=== PATIENT | male | born 1980 | race African-American/Black ===

== ENCOUNTER 2016-08-25 15:05 | Emergency (ER) | payer MEDICARE, MEDICAID ==
[2016-08-25 16:09] VITALS: BP 137/83
[2016-08-25 17:22] LABS: Hematocrit 44 % (42-52); Hemoglobin 14.8 g/dl (14.0-18.0); Mean Corpuscular HGB Conc 34 g/dl (31-36); Mean Corpuscular Hemoglobin 30 pg (27-31); Mean Corpuscular Volume 88 fL (80-94); Mean Platelet Volume 9 um3 (7.4-10.4); Red Blood Count 4.98 10^6/ul (4.0-5.4); Red Cell Distribution Width 13 % (10.5-15); White Blood Count 12.2 10^3/ul (3.5-10.8)
[2016-08-25 17:39] LABS: Albumin 4.2 g/dL (3.2-5.2); Anion Gap 8 mmol/L (2-11); Blood Urea Nitrogen 7 mg/dL (6-24); CO2 Carbon Dioxide 25 mmol/L (22-32); Calcium 9.4 mg/dL (8.6-10.3); Chloride 106 mmol/L (101-111); EGFR African American 163.2 (>60); EGFR Non-African American 126.9 (>60); Globulin 2.3 g/dL (2-4); Glucose 136 mg/dL (70-100); Potassium 3.6 mmol/L (3.5-5.0); Sodium 139 mmol/L (133-145); Total Protein 6.5 g/dL (6.4-8.9)
[2016-08-25 17:40] LABS: ALT 21 U/L (7-52); AST 13 U/L (13-39); Alkaline Phosphatase 42 U/L (34-104)
[2016-08-25 18:07] LABS: Acetaminophen < 15 mcg/mL; Alcohol < 10 mg/dL (<10); Salicylate < 2.50 mg/dL (<30)
[2016-08-25 18:16] LABS: TSH (Thyroid Stimulating Horm) 1.02 mcIU/mL (0.34-5.60)
--- NOTE | 2016-08-25 23:21 | ED ---
Bacilio Garcia Erika, scribed for Don Rojas MD on 08/25/16 at 1530 . Psychiatric Complaint - HPI Summary HPI Summary: Patient is a 35-year-old male presenting to the ED with a CC of constant and gradually worsening schizophrenia. Pt reports that he has not been sleeping well , and states he is not on enough medication. Pt reports he takes depakote. Hx schizophrenia. - History Of Current Complaint Time Seen by Provider: 08/25/16 15:24 Accompanied By: Alone Hx Obtained From: Patient Onset/Duration: Gradual Onset, Worse Since Timing: Constant Severity Initially: Mild Severity Currently: Moderate Aggravating Factor(s): Other - lack of sleep Alleviating Factor(s): Nothing Associated Signs And Symptoms: Positive: Sleep Disturbance Related History: Positive For: Prior Psychiatric Issues Has Suicidal: Denies: Thoughts - Allergies/Home Medications Allergies/Adverse Reactions: Allergies Allergy/AdvReac Type Severity Reaction Status Date / Time No Known Allergies Allergy Verified 04/15/16 17:25 PMH/Surg Hx/FS Hx/Imm Hx Endocrine/Hematology History: Reports: Hx Diabetes, Hx Thyroid Disease Sensory History: Reports: Hx Contacts or Glasses Opthamlomology History: Reports: Hx Contacts or Glasses Psychiatric History: Reports: Hx Inpatient Treatment, Hx Community Mental Health Tx, Hx Schizophrenia, Hx Bipolar Disorder, Hx of Violent Episodes Against Others Denies: Hx Eating Disorder - Surgical History Surgery Procedure, Year, and Place: patient reports history of gall bladder surgery and a corneal transplant - Immunization History Date of Tetanus Vaccine: unknown Date of Influenza Vaccine: unknown - Family History Known Family History: Positive: Hypertension, Diabetes, Other - father-- schizophrenia. Brothers--mood disorder. Mother-- depression - Social History Alcohol Use: None Hx Substance Use: No Substance Use Type: Reports: None Hx Tobacco Use: Yes Smoking Status (MU): Current Every Day Smoker Amount Used/How Often: 7-9 cigarettes a day Length of Time of Smoking/Using Tobacco: can't recall Have You Smoked in the Last Year: Yes - Pt states he smoke last yesterday Review of Systems Negative: Fever Psychological: Other - worsening sx of schizophrenia, sleep disturbance All Other Systems Reviewed And Are Negative: Yes Physical Exam Triage Information Reviewed: Yes Vital Signs On Initial Exam: Temp Pulse Resp BP Pulse Ox 98.0 F 92 16 137/83 97 08/25/16 16:03 08/25/16 16:03 08/25/16 16:03 08/25/16 16:03 08/25/16 16:03 Vital Signs Reviewed: Yes Appearance: Positive: Well-Appearing, No Pain Distress Skin: Positive: Warm, Skin Color Reflects Adequate Perfusion, Dry Head/Face: Positive: Normal Head/Face Inspection Eyes: Positive: EOMI, ARETHA ENT: Positive: Normal ENT inspection Neck: Positive: Supple, Nontender Respiratory/Lung Sounds: Positive: Clear to Auscultation, Breath Sounds Present Cardiovascular: Positive: RRR Abdomen Description: Positive: Nontender, Soft Bowel Sounds: Positive: Present Musculoskeletal: Positive: Normal, Strength/ROM Intact Neurological: Positive: Normal, Sensory/Motor Intact, Alert, Oriented to Person Place, Time Psychiatric: Positive: Affect/Mood Appropriate Diagnostics - Vital Signs Vital Signs Temp Pulse Resp BP Pulse Ox 08/25/16 16:03 98.0 F 92 16 137/83 97 - Laboratory Lab Results: Lab Results 08/25/16 08/25/16 Range/Units 17:10 17:10 WBC 12.2 H (3.5-10.8) 10^3/ul RBC 4.98 (4.0-5.4) 10^6/ul Hgb 14.8 (14.0-18.0) g/dl Hct 44 (42-52) % MCV 88 (80-94) fL MCH 30 (27-31) pg MCHC 34 (31-36) g/dl RDW 13 (10.5-15) % Plt Count 212 (150-450) 10^3/ul MPV 9 (7.4-10.4) um3 Neut % (Auto) 67.3 (38-83) % Lymph % (Auto) 24.1 L (25-47) % Worth % (Auto) 6.4 (1-9) % Eos % (Auto) 1.6 (0-6) % Baso % (Auto) 0.6 (0-2) % Absolute Neuts (auto) 8.2 H (1.5-7.7) 10^3/ul Absolute Lymphs (auto) 2.9 (1.0-4.8) 10^3/ul Absolute Monos (auto) 0.8 (0-0.8) 10^3/ul Absolute Eos (auto) 0.2 (0-0.6) 10^3/ul Absolute Basos (auto) 0.1 (0-0.2) 10^3/ul Absolute Nucleated RBC 0.01 10^3/ul Nucleated RBC % 0.1 Sodium 139 (133-145) mmol/L Potassium 3.6 (3.5-5.0) mmol/L Chloride 106 (101-111) mmol/L Carbon Dioxide 25 (22-32) mmol/L Anion Gap 8 (2-11) mmol/L BUN 7 (6-24) mg/dL Creatinine 0.70 (0.67-1.17) mg/dL Est GFR ( Amer) 163.2 (>60) Est GFR (Non-Af Amer) 126.9 (>60) BUN/Creatinine Ratio 10.0 (8-20) Glucose 136 H (70-100) mg/dL Calcium 9.4 (8.6-10.3) mg/dL Total Bilirubin 0.50 (0.2-1.0) mg/dL AST 13 (13-39) U/L ALT 21 (7-52) U/L Alkaline Phosphatase 42 (34-104) U/L Total Protein 6.5 (6.4-8.9) g/dL Albumin 4.2 (3.2-5.2) g/dL Globulin 2.3 (2-4) g/dL Albumin/Globulin Ratio 1.8 (1-3) TSH 1.02 (0.34-5.60) mcIU/mL Salicylates < 2.50 (<30) mg/dL Acetaminophen < 15 mcg/mL Valproic Acid 84.0 (50-100) mcg/mL Serum Alcohol < 10 (<10) mg/dL Result Diagrams: 08/25/16 17:10 08/25/16 17:10 Lab Statement: Any lab studies that have been ordered have been reviewed, and results considered in the medical decision making process. Course/Dx - Course Course Of Treatment: Pt is medically cleared for MHU Evaluation at 18:00 Assessment/Plan: MHE PENDING AT SHIFT CHANGE, STABLE. - Differential Dx/Clinical Impression Provider Diagnosis: Mental health problem Discharge - Discharge Plan Condition: Stable Disposition[place]ATR[place] [place] Comment: Signed out pending MHU evaluation Referrals: No Primary Care Phys,NOPCP [Primary Care Provider] - The documentation as recorded by the Bacilio jean Erika accurately reflects the service I personally performed and the decisions made by me, Don Rojas MD.
[2016-08-26] MEDS ORDERED: OLANzapine TAB* 10 MG PO ONE (02:17)
[2016-08-26] MEDS ORDERED: OLANzapine TAB* 10 MG ONE (02:26)
--- NOTE | 2016-08-26 06:53 | PN ---
Progress Note - Progress Note Note: PT STABLE AND AWAITING FOR SW CONSULT.
[2016-08-26] MEDS ORDERED: Levothyroxine TAB* 75 MCG TAB PO SCH (09:00)
[2016-08-26] MEDS ORDERED: OLANzapine TAB* 10 MG PO SCH (09:00)
[2016-08-26] MEDS ORDERED: Citalopram TAB* 40 MG PO SCH (09:00)
[2016-08-26] MEDS ORDERED: metFORMIN* 1,000 MG TAB PO SCH (09:00)
--- NOTE | 2016-08-26 09:27 | PN ---
Progress Note - Progress Note Note: PSYCHIATRY UPDATE - Read in connection with Mental Health Evaluations 1-3 and other notes (ED education professional updates). Interview: Luis expressed sadness at the general circumstances of his life: feels alone and disliked. He expressed frustration that he "will never get the care (he needs)." He reports good subjective connection with the clinic, adherence with his medicines. Said he is only low on Zyprexa at home and was not sure if he had a current Rx. at the pharmacy. He expressed a relative preference for going home vs. waiting for a psychiatric bed, which we offered to try to obtain for him. I discussed case by phone with Dr. Ling at [facility]. He said he last saw pt. a couple of month ago and that Luis missed a visit last week (but apparently expecting to miss, called ahead and asked for Zyprexa Rx - which was ordered). So it seems Luis values his medicine regimen. His clinic status is consistent with baseline. Dr. Ling did not have up to date info on patient's status but did not have concerns that would make discharge inappropriate. Impression: Luis is a 35-year-old male with chronic psychotic condition, periodic threatening and disruptive behavior and reported history of suicide attempt. He presented typically again with increased paranoid ideation, elevated distress , and some level of suicidal ideation in that context. It is in the setting of spotty adherence with clinic visits but apparent adherence with outpatient medications (Valproate level 84). He has maintained behavioral control here. Is sullen, but at overtly low distress levels. He is not making spontaneous delusional comments and affirms, consistently, that he does not have the intention to (or perceived capability of ) acting in a way that harms himself or others. He is psychiatrically clear for release if he opts for it. Clinic care will continue at [facility]. He has supplies of medicine regimen (and/or Rx at pharmacy). Today's risk concern centered on suicidal ideation with some level of impairment due to paranoid ideation. Luis is at chronically elevated risk due to his condition and history. Acute risk is acceptable for discharge because he has not have active planning, appears at / near baseline in impairment, and distress levels are reduced. Violence risk is chronic and elevated, and assessed at baseline at this time.
[2016-08-26] MEDS ORDERED: Divalproex DR TAB(*) 500 MG PO SCH (21:00)
== END 2016-08-26 12:00 | disposition home or self-care (01) ==
LOC: ED 15:05
DX: R45.851 Suicidal ideations (principal); G47.9 Sleep disorder, unspecified; Z86.59 Personal history of other mental and behavioral disorders; F17.210 Nicotine dependence, cigarettes, uncomplicated; Z00.8 Encounter for other general examination
CPT/HCPCS: 36415; 80053; 80164; 80320; 80329; 84443; 85025; 99285; A9270-GY; G0480

== ENCOUNTER 2016-10-19 03:01 | Emergency (ER) | payer MEDICARE, MEDICAID ==
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
== END 2016-10-19 03:41 ==
LOC: ED 03:01
DX: F31.9 Bipolar disorder, unspecified (principal); F63.9 Impulse disorder, unspecified; E11.9 Type 2 diabetes mellitus without complications; F20.9 Schizophrenia, unspecified; F17.210 Nicotine dependence, cigarettes, uncomplicated
CPT/HCPCS: 99283

== ENCOUNTER 2016-10-19 06:45 | Emergency (ER) | payer MEDICARE, MEDICAID ==
[2016-10-19] MEDS ORDERED: Valproic Acid CAP(*) 250 MG PO ONE ×2 (07:43→23:00)
[2016-10-19] MEDS ORDERED: metFORMIN* 500 MG TAB PO ONE ×2 (07:43→23:00)
[2016-10-19] MEDS ORDERED: OLANzapine TAB* 10 MG PO SCH ×2 (08:00→08:03)
[2016-10-19] MEDS: Citalopram TAB* 40 MG PO SCH ×2 (08:22→08:23)
[2016-10-19 15:56] VITALS: BP 134/87
--- NOTE | 2016-10-19 17:46 | ED ---
Daphne Garcia Michael, scribed for Benji Saavedra MD on 10/19/16 at 0724 . Psychiatric Complaint - HPI Summary HPI Summary: 35 y/o male was brought to the ED by [facility] as a 941 after he was already seen in the ED this morning for suicidal thoughts. The pt returns to the ED stating that he wants to be discharged and has an angry affect. He does not believe his life will get any better. The pt agrees to have an MHE. The PMHx is significant for schizophrenia, depression, and anxiety. - History Of Current Complaint Chief Complaint: EDMentalHealth Time Seen by Provider: 10/19/16 07:12 Hx Obtained From: Patient, Medical Records Onset/Duration: Gradual Onset, Lasting Hours Timing: Constant Severity Initially: Moderate Severity Currently: Mild Character: Angry Aggravating Factor(s): Nothing Alleviating Factor(s): Nothing Associated Signs And Symptoms: Positive: Hostile Related History: Positive For: Prior Psychiatric Issues - Allergies/Home Medications Allergies/Adverse Reactions: Allergies Allergy/AdvReac Type Severity Reaction Status Date / Time No Known Allergies Allergy Verified 08/26/16 01:58 Home Medications: Home Medications metFORMIN* [Glucophage 1000 MG TAB *] 1,000 mg PO DAILY 10/19/16 [History Confirmed 10/19/16] PMH/Surg Hx/FS Hx/Imm Hx Endocrine/Hematology History: Reports: Hx Diabetes, Hx Thyroid Disease Sensory History: Reports: Hx Contacts or Glasses Opthamlomology History: Reports: Hx Contacts or Glasses Psychiatric History: Reports: Hx Inpatient Treatment, Hx Community Mental Health Tx, Hx Schizophrenia, Hx Bipolar Disorder, Hx of Violent Episodes Against Others Denies: Hx Eating Disorder - Surgical History Surgery Procedure, Year, and Place: patient reports history of gall bladder surgery and a corneal transplant - Immunization History Date of Tetanus Vaccine: unknown Date of Influenza Vaccine: unknown Infectious Disease History: No Infectious Disease History: Denies: Traveled Outside the [place] in Last 30 Days - Family History Known Family History: Positive: Hypertension, Diabetes, Other - father-- schizophrenia. Brothers--mood disorder. Mother-- depression - Social History Occupation: Disabled Lives: Alone Alcohol Use: None Hx Substance Use: No Substance Use Type: Reports: None Hx Tobacco Use: Yes Smoking Status (MU): Current Every Day Smoker Amount Used/How Often: 7-9 cigarettes a day Length of Time of Smoking/Using Tobacco: can't recall Have You Smoked in the Last Year: Yes - Pt states he smoke last yesterday Review of Systems Negative: Fever Positive: Other - hostile All Other Systems Reviewed And Are Negative: Yes Physical Exam Triage Information Reviewed: Yes Vital Signs On Initial Exam: Initial Vitals Temp Pulse Resp BP Pulse Ox 98.9 F 101 20 122/98 96 10/19/16 06:52 10/19/16 06:52 10/19/16 06:52 10/19/16 06:52 10/19/16 06:52 Vital Signs Reviewed: Yes Appearance: Positive: Well-Appearing, No Pain Distress, Well-Nourished Skin: Positive: Warm, Skin Color Reflects Adequate Perfusion, Dry Head/Face: Positive: Normal Head/Face Inspection Eyes: Positive: Normal ENT: Positive: Normal ENT inspection Neck: Positive: Supple, Nontender Respiratory/Lung Sounds: Positive: Clear to Auscultation, Breath Sounds Present Cardiovascular: Positive: Tachycardia Abdomen Description: Positive: Nontender, Soft Bowel Sounds: Positive: Present Musculoskeletal: Positive: Normal Neurological: Positive: Normal Psychiatric: Positive: Affect/Mood Appropriate Diagnostics - Vital Signs Vital Signs Temp Pulse Resp BP Pulse Ox 10/19/16 06:52 98.9 F 101 20 122/98 96 - Laboratory Lab Statement: Any lab studies that have been ordered have been reviewed, and results considered in the medical decision making process. Course/Dx - Course Course Of Treatment: Luis presented to the ED angry and frustrated that his life would not get any better. He was medically cleared and evaulated by the mental health team and they are attempting to transfer him at this time. - Differential Dx/Clinical Impression Provider Diagnosis: Chronic psychosis Discharge - Discharge Plan Condition: Stable Disposition: TRANS HIGHER L OF CARE FAC The documentation as recorded by the Daphne jean Michael accurately reflects the service I personally performed and the decisions made by me, Benji Saavedra MD.
[2016-10-19] MEDS ORDERED: Haloperidol TAB* 5 MG PO ONE (17:49)
[2016-10-19] MEDS ORDERED: Haloperidol INJ IV/IM* 5 MG/ML AMP IM ONE (17:49)
[2016-10-19] MEDS ORDERED: LORazepam TAB(*) 1 MG PO ONE (17:49)
[2016-10-19] MEDS ORDERED: LORazepam INJ* 2 MG/ML 1 ML VIAL IM ONE (17:49)
[2016-10-19] MEDS ORDERED: diPHENhydraMINE PO* 50 MG PO ONE (17:49)
[2016-10-19] MEDS ORDERED: diPHENhydraMINE IV* 50 MG/ML 1 ml VIAL (BENADRYL) IM ONE (17:49)
[2016-10-19 17:57] LABS: Hematocrit 42 % (42-52); Mean Corpuscular HGB Conc 34 g/dl (31-36); Mean Corpuscular Hemoglobin 30 pg (27-31); Mean Corpuscular Volume 90 fL (80-94); Mean Platelet Volume 9 um3 (7.4-10.4); Red Blood Count 4.65 10^6/ul (4.0-5.4); Red Cell Distribution Width 13 % (10.5-15); White Blood Count 8.4 10^3/ul (3.5-10.8)
[2016-10-19 18:00] LABS: ALT 22 U/L (7-52); AST 24 U/L (13-39); Alkaline Phosphatase 48 U/L (34-104); Anion Gap 9 mmol/L (2-11); BUN/Creatinine Ratio 15.8 (8-20); Blood Urea Nitrogen 9 mg/dL (6-24); CO2 Carbon Dioxide 27 mmol/L (22-32); Calcium 9.4 mg/dL (8.6-10.3); Chloride 104 mmol/L (101-111); EGFR African American 206.9 (>60); EGFR Non-African American 160.8 (>60); Globulin 2.5 g/dL (2-4); Glucose 83 mg/dL (70-100); Sodium 140 mmol/L (133-145); Total Protein 6.5 g/dL (6.4-8.9)
[2016-10-19 18:03] LABS: Acetaminophen < 15 mcg/mL; Alcohol < 10 mg/dL (<10); Salicylate < 2.50 mg/dL (<30)
[2016-10-19 18:12] LABS: TSH (Thyroid Stimulating Horm) 1.95 mcIU/mL (0.34-5.60)
[2016-10-19] MEDS ORDERED: Citalopram TAB* 40 MG PO SCH (23:00)
[2016-10-19] MEDS ORDERED: OLANzapine TAB* 10 MG PO ONE (23:00)
[2016-10-20] MEDS ORDERED: Levothyroxine TAB* 75 MCG TAB PO SCH ×2 (06:00→23:00)
== END 2016-10-19 23:54 | disposition short-term general hospital (02) ==
LOC: ED 06:45
DX: F29 Unspecified psychosis not due to a substance or known physiological condition (principal); E11.9 Type 2 diabetes mellitus without complications; F20.9 Schizophrenia, unspecified; F31.9 Bipolar disorder, unspecified; F17.210 Nicotine dependence, cigarettes, uncomplicated
CPT/HCPCS: 36415; 80053; 80320; 80329; 84443; 85025; 96372; 99285; A9270-GY; G0480

== ENCOUNTER 2016-12-12 08:44 | Inpatient (IN) | payer MEDICARE, MEDICAID ==
[2016-12-12 09:33] LABS: Hematocrit 47 % (42-52); Mean Corpuscular HGB Conc 34 g/dl (31-36); Mean Corpuscular Hemoglobin 30 pg (27-31); Mean Corpuscular Volume 88 fL (80-94); Mean Platelet Volume 8 um3 (7.4-10.4); Red Blood Count 5.36 10^6/ul (4.0-5.4); Red Cell Distribution Width 13 % (10.5-15); White Blood Count 15.8 10^3/ul (3.5-10.8)
[2016-12-12 09:41] LABS: Add Diff/Slide Review? Slide Review Added; Comments Flag Yes
[2016-12-12 09:44] LABS: ALT 32 U/L (7-52); AST 23 U/L (13-39); Albumin 4.8 g/dL (3.2-5.2); Alkaline Phosphatase 61 U/L (34-104); Anion Gap 12 mmol/L (2-11); BUN/Creatinine Ratio 15.9 (8-20); Blood Urea Nitrogen 10 mg/dL (6-24); CO2 Carbon Dioxide 20 mmol/L (22-32); Calcium 10.1 mg/dL (8.6-10.3); Chloride 105 mmol/L (101-111); EGFR African American 183.3 (>60); EGFR Non-African American 142.5 (>60); Glucose 163 mg/dL (70-100); Potassium 3.6 mmol/L (3.5-5.0); Sodium 137 mmol/L (133-145); Total Protein 7.8 g/dL (6.4-8.9)
[2016-12-12 10:27] LABS: Acetaminophen < 15 mcg/mL; Alcohol < 10 mg/dL (<10); Salicylate < 2.50 mg/dL (<30); Valproic Acid < 13.0 mcg/mL (50-100)
[2016-12-12 10:37] LABS: TSH (Thyroid Stimulating Horm) 4.93 mcIU/mL (0.34-5.60)
[2016-12-12] MEDS ORDERED: LORazepam INJ* 2 MG/ML 1 ML VIAL ONE (16:55)
[2016-12-12] MEDS ORDERED: LORazepam TAB(*) 1 MG ONE (16:55)
[2016-12-12] MEDS ORDERED: chlorproMAZINE TAB* 50 MG ONE (16:56)
[2016-12-12] MEDS ORDERED: Haloperidol INJ IV/IM* 5 MG/ML AMP ONE (16:56)
[2016-12-12] MEDS ORDERED: diPHENhydraMINE IV* 50 MG/ML 1 ml VIAL (BENADRYL) ONE (16:56)
[2016-12-12] MEDS ORDERED: diPHENhydraMINE PO* 50 MG ONE (16:56)
[2016-12-12] MEDS ORDERED: LORazepam INJ* 2 MG/ML 1 ML VIAL IM ONE (17:00)
[2016-12-12] MEDS ORDERED: diPHENhydraMINE IV* 50 MG/ML 1 ml VIAL (BENADRYL) IM ONE (17:00)
[2016-12-12] MEDS ORDERED: Haloperidol INJ IV/IM* 5 MG/ML AMP IM ONE (17:00)
[2016-12-12] MEDS ORDERED: Al Hydrox/Mg Hydrox/Simet LIQ* 30 ML UDC PO PRN (22:29)
[2016-12-12] MEDS ORDERED: Acetaminophen TAB* 325 MG PO PRN (22:29)
[2016-12-13] MEDS: LORazepam TAB(*) 1 MG PO PRN (08:45)
[2016-12-13] MEDS: chlorproMAZINE TAB* 50 MG PO PRN (08:45)
[2016-12-13] MEDS: Vitamin THERAPEUTIC TAB PO SCH (08:48)
[2016-12-13] MEDS ORDERED: OLANzapine TAB*ODT* 5 MG PO ONE (09:10)
[2016-12-13] MEDS ORDERED: OLANzapine TAB*ODT* 10 MG TAB ONE (09:13)
--- NOTE | 2016-12-13 11:32 | HP ---
DATE OF ADMISSION: 12/12/2016. IDENTIFYING DATA: Luis Rubio is a 36-year-old, mentally-disabled, - [place] male with a history of chronic psychotic disorder, numerous psychiatric hospitalizations, along with a history of violence and suicidal behavior. He is admitted to the Psychiatric Unit on a voluntary basis after coming to the hospital emergency room by car with a chief complaint of "idiocy. " HISTORY OF PRESENT ILLNESS: Luis was last admitted to our psychiatric unit in the Fall of 2015. He presented to our emergency room in October of this year and was transferred to [facility] due to a full census at our facility. During the course of his ER visit, he scattered the glass in the triage medical office receptionist area. He provides a very limited history. At first he was quite agitated and hostile and was help-rejecting, walking away during the course of our conversation. Later, after he received medication, he complained of feeling sedated and gave fairly minimal responses. He denies new health problems since his last hospitalization and he denies the use of alcohol or drugs. He reports having stopped taking medication about four days ago and is ambivalent about restarting it, but agrees to. He made some delusional statements to the effect that people were trying to control him, stop him from talking, or putting him in residential. He denies hallucinations and he denied the ideas of harming other. He also denied suicidal ideation. He endorsed feeling irritable and angry, but not depressed. He could not elaborate further on subacute mood symptoms. He said he was okay being in the psychiatric for now "until you kick me out." PRIOR PSYCHIATRIC HISTORY: Numerous admissions to psychiatry units, over 20 at our facility since 2002. He has also been admitted to the [facility] in [place]. He has had severe disruptive behavior, destroying property in the hospital and violent and threatening behavior on the Psychiatric Unit and within other areas of the hospital. He has required expedited transfer to the [facility] in the past. He has chronic paranoid ideation that appears to be active, even when he is in treatment with medication. He has previously denied glen hallucinations, but has had hypnagogic phenomenon. He has denied anxiety syndromes or posttraumatic symptoms. He has not had a pattern of self-injury or major organized violence. People are at high risk for getting hurt when he is being disruptive and breaking things around him. His diagnosis is schizophrenia and he has had long-term outpatient care at [facility]. He has been on a long- term trial of Depakote, Zyprexa, and Lexapro and generally is adherent with it per his report. PAST MEDICAL HISTORY: Obesity, hypothyroidism, corneal transplant, diabetes. CURRENT OUTPATIENT MEDICATIONS: None. Recent regimen was Depakote 2500 mg each bedtime, Lexapro 20 mg each bedtime and Olanzapine 40 mg each bedtime, along with somatic medications of Metformin 500 mg b.i.d., Synthroid 75 mcg each day. ALLERGIES: No known drug allergies. FAMILY PSYCHIATRIC HISTORY: Father reportedly has schizophrenia. Mother has suffered depression and apparently several brothers have mood problems. SUBSTANCE USE HISTORY: Denied the use of alcohol or drugs and these have not been identified as a problem recently. He has previously reported smoking about a half- a-pack of cigarettes per day. ABUSE HISTORY: Denied a history of abuse. Mother used corporal punishments in his youth, but he has previously reported that it was fine. SOCIAL HISTORY: Luis is from the [facility]. He grew up with his mother and several brothers. He also has a grandmother who has been quite supportive to him. He has received disability based on mental disorder. He graduated high school successfully, but had difficulty enrolling in college and took medical withdraw from there. 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 He does not have any major legal history. He is not currently in any intimate relationships, has never been and has no children. MENTAL STATUS EXAMINATION: Obese, taller, middle-aged, -[place]iss male who has moderate person hygiene, slowed psychomotor activity. He is minimally cooperative with poor eye contact. Speech is terse with latencies. Mood is described as "irritable". Affect is somewhat constricted and dysphoric. Thought process is impoverished, it is not goal directed. Thought content significant for paranoid ideation. There is no suicidal or homicidal ideation. Sensorium is clear. Insight and judgment is poor and impulse control is tenuous. REVIEW OF SYSTEMS: Negative for neurological difficulties, respiratory symptoms , chest pain, syncope, gastrointestinal symptoms, elimination symptoms, musculoskeletal problems or skin problems. PHYSICAL EXAMINATION Physical examination is deferred. Luis refused a physical examination and he said he did not need it. This is a reasonable refusal. He has been medically cleared through the emergency room evaluation and therefore this does not require follow- up. He is medically stable. VITAL SIGNS: Temperature 98.6, heart rate 126, respiratory rate 20, O2 saturation 98 on room air. LABORATORY STUDIES: CBC had white blood count of 15.8, 16.2 percent lymphocytes, 11.2 percent monocytes, 11.2 absolute neutrophils, 1.8 absolute monocytes. Comprehensive panel had carbon dioxide of 20, anion gap of 20, creatinine of 0.63, glucose 163, total bilirubin 1.2. TSH was normal. Toxicology screen was negative for Tylenol, alcohol or salicylates, and valproic acid level was not detected. Urine drug screen was not done. CLINICAL SUMMARY: [id number]-[id number]-old male with chronic psychotic disorder who generally has residual symptoms, even when in treatment, who presents with a period of escalated distress, irritability, and paranoid ideation in the setting of apparent medication nonadherence. He merits psychiatric hospitalization based on his acute impairment. He has chronic risk for disruptive behavior and destruction of property and consequent harm to others, along with chronic elevated suicide risk. At this time, his risk is over his baseline due to his decompensation. ADMISSION DIAGNOSES: Chronic psychotic disorder, schizophrenia versus schizoaffective disorder. TREATMENT PLAN: Admit to the Psychiatric Unit, code status is full, safety checks are at 15 minute intervals, initiate comprehensive group milieu and individual psychotherapeutic support. Medication management will restart the outpatient medication regimen. Target symptoms are paranoid ideation, elevated upset and distress, dysphoria, irritability, increased impulsiveness. Estimated length of stay is three to six days. Discharge planning will involve coordination with appropriate aftercare. Luis's strengths are his adequate baseline health and intellectual functioning, along with his ability to maintain , albeit a tenuous one, a long-term treatment alliance with the clinic. [id number]/[facility] #: [id number] [facility] LONG ISLAND HOSPITALRafael
[2016-12-13] MEDS: Levothyroxine TAB* 75 MCG TAB PO SCH (14:30)
[2016-12-13] MEDS: metFORMIN* 500 MG TAB PO SCH ×2 (14:30→21:34)
[2016-12-13] MEDS: Citalopram TAB* 40 MG PO SCH (21:35)
[2016-12-13] MEDS: Divalproex DR TAB(*) 500 MG PO SCH (21:35)
[2016-12-14] MEDS: Levothyroxine TAB* 75 MCG TAB PO SCH (06:45)
[2016-12-14] MEDS: chlorproMAZINE TAB* 50 MG PO PRN ×2 (07:30→18:40)
[2016-12-14] MEDS: metFORMIN* 500 MG TAB PO SCH ×2 (07:31→23:15)
[2016-12-14] MEDS: Vitamin THERAPEUTIC TAB PO SCH (07:31)
[2016-12-14] MEDS: LORazepam TAB(*) 1 MG PO PRN ×2 (07:31→18:40)
[2016-12-14] MEDS: Citalopram TAB* 40 MG PO SCH (23:15)
[2016-12-14] MEDS: Divalproex DR TAB(*) 500 MG PO SCH (23:15)
[2016-12-15] MEDS: metFORMIN* 500 MG TAB PO SCH ×3 (02:53→21:35)
[2016-12-15] MEDS: Divalproex DR TAB(*) 500 MG PO SCH ×2 (02:53→21:34)
[2016-12-15] MEDS: Citalopram TAB* 40 MG PO SCH ×2 (02:53→21:35)
[2016-12-15] MEDS: chlorproMAZINE TAB* 50 MG PO PRN (08:05)
[2016-12-15] MEDS: LORazepam TAB(*) 1 MG PO PRN (08:05)
[2016-12-15] MEDS: Levothyroxine TAB* 75 MCG TAB PO SCH (08:08)
--- NOTE | 2016-12-15 13:13 | PN ---
Subjective - Subjective Service Type: 31283 Hosp care 15 min low complexity Subjective: Today I had the opportunity to see Mr. Rubio on follow-up. He was in his room, remained lying in bed for the clinical interview. Behavior was bizarre, speech was disorganized, however, at one point he did say "if you're going to whisper like that so be it." Nursing staff report that the patient continues to be med compliant, and has required PRN medications as behavior control is problematic for Mr. Rubio. I was unable to assess suicidal/homicidal ideation due to patient's confusion. Case reviewed with Dr. Navarro. Objective - Appearance Hygiene: Mal-odorous Grooming: Disheveled - Behavior Psychomotor Activities: Normal Exhibits Abnormal Movement: No - Attitude and Relatedness Attitude and Relatedness: Irritable Eye Contact: Poor - Speech Quality: Unpressured Latencies: Long Quantity: Terse - Mood Patient's Decription of Mood: Unable to describe mood when questioned re: same. - Affect Observed Affect: Labile - Thought Process Patient's Thought Process: Disorganized - Level of Consciousness Level of Consciousness: Lethargic - Impulse Control Impulse Control: Impaired - Insight and Judgement Insight and Judgement: Poor Assessment - Assessment Clinical Impression: Mr. Rubio is a 36 year old AA male admitted due to acute psychosis. Significant symptoms persist, making the patient unsuitable for discharge at this point. Plan - Plan Treatment Plan: Name: RUBENS RUBIO Birthdate: 1980 [id number] Medications: Current Medications Acetaminophen (Tylenol Tab*) 650 mg PO Q4H PRN PRN Reason: PAIN or TEMP > 101 F Al Hydrox/Mg Hydrox/Simethicone (Maalox Plus*) 30 ml PO Q4H PRN PRN Reason: INDIGESTION Chlorpromazine HCl (Thorazine Tab*) 50 mg PO Q4H PRN PRN Reason: AGITATION Last Admin: 12/15/16 08:05 Dose: 50 mg Citalopram Hydrobromide (Celexa Tab*) 40 mg PO BEDTIME DI PRN Reason: Protocol Last Admin: 12/15/16 02:53 Dose: 40 mg Diphenhydramine HCl (Benadryl Po*) 50 mg PO Q6H PRN PRN Reason: AGITATION Last Admin: 12/15/16 08:05 Dose: 50 mg Divalproex Sodium (Depakote Dr Tab(*)) 2,500 mg PO BEDTIME DI Last Admin: 12/15/16 02:53 Dose: 2,500 mg Levothyroxine Sodium (Synthroid Tab*) 75 mcg PO 0600 DI Last Admin: 12/15/16 08:08 Dose: 75 mcg Lorazepam (Ativan Tab(*)) 2 mg PO Q6H PRN PRN Reason: AGITATION Last Admin: 12/15/16 08:05 Dose: 2 mg Metformin HCl (Glucophage*) 500 mg PO BID DI Last Admin: 12/15/16 08:05 Dose: 500 mg
[2016-12-16] MEDS: Levothyroxine TAB* 75 MCG TAB PO SCH (06:19)
[2016-12-16] MEDS: chlorproMAZINE TAB* 50 MG PO PRN (07:33)
[2016-12-16] MEDS: LORazepam TAB(*) 1 MG PO PRN (07:33)
[2016-12-16] MEDS ORDERED: OLANzapine TAB*ODT* 5 MG PO SCH (09:00)
--- NOTE | 2016-12-16 11:34 | PN ---
Subjective - Subjective Service Type: 53871 Hosp care 15 min low complexity Subjective: Rubens had long latencies before responding, and had no spontaneous comments. He reported not doing well, but affirmed he is safe: "I was always safe..." He could not articulate a specific problem why. He denied side effects with medication and agreed with medication plan and ongoing care. He was skeptical about the benefit of care, but said he is okay with it. Objective - Appearance Appearance: Obese Hygiene: Normal Grooming: Disheveled - Behavior Psychomotor Activities: Abnormal-Decreased - Attitude and Relatedness Attitude and Relatedness: Minimally Cooperative Eye Contact: Poor - Speech Quality: Unpressured Latencies: Long Quantity: Terse - Mood Patient's Decription of Mood: "Sad" - Affect Observed Affect: Unvariable Affect Consistent with: Dysphoria - Thought Process Patient's Thought Process: Impoverished - blocked Thought Content: No Passive Wish, No Suicidal Planning, No Homicidal Ideation, No Paranoid Ideation - Sensorium Experiencing Hallucinations: No, Sensorium is Clear - Level of Consciousness Level of Consciousness: Alert - Impulse Control Impulse Control: Tenuous - Insight and Judgement Insight and Judgement: Poor Assessment - Assessment Merits Inpatient Hospitalization: For Immediate Safety, For Stabilization, To Initiate Treatment, For Ongoing Evaluation, For Discharge Planning Inpatient DSM-IV Dx: Chronic psychotic disorder, schizophrenia versus schizoaffective disorder. Clinical Impression: Hlgzve-[id number]-[id number]-old male with chronic psychotic disorder who generally has residual symptoms, even when in treatment, who presents with a period of escalated distress, irritability, and paranoid ideation in the setting of apparent medication nonadherence. He merits psychiatric hospitalization based on his acute impairment. He has chronic risk for disruptive behavior and destruction of property and consequent harm to others, along with chronic elevated suicide risk. Continues symptomatic - irritable, with paranoid ideation and intermittent hostility. Medication management will restart the outpatient medication regimen (Lexapro, Depakote, Zyprexa). He has received multiple PRN doses of medicine based on agitation. Plan - Plan Treatment Plan: Name: RUBENS LUNSFORD Birthdate: 1980 [id number] Continued Medication Management: Start Medication Medications: Current Medications Acetaminophen (Tylenol Tab*) 650 mg PO Q4H PRN PRN Reason: PAIN or TEMP > 101 F Al Hydrox/Mg Hydrox/Simethicone (Maalox Plus*) 30 ml PO Q4H PRN PRN Reason: INDIGESTION Chlorpromazine HCl (Thorazine Tab*) 50 mg PO Q4H PRN PRN Reason: AGITATION Last Admin: 12/16/16 07:33 Dose: 50 mg Citalopram Hydrobromide (Celexa Tab*) 40 mg PO BEDTIME DI PRN Reason: Protocol Last Admin: 12/15/16 21:35 Dose: 40 mg Diphenhydramine HCl (Benadryl Po*) 50 mg PO Q6H PRN PRN Reason: AGITATION Last Admin: 12/16/16 07:33 Dose: 50 mg Divalproex Sodium (Depakote Dr Tab(*)) 2,500 mg PO BEDTIME DI Last Admin: 12/15/16 21:34 Dose: 2,500 mg Levothyroxine Sodium (Synthroid Tab*) 75 mcg PO 0600 DI Last Admin: 12/16/16 06:19 Dose: 75 mcg Lorazepam (Ativan Tab(*)) 2 mg PO Q6H PRN PRN Reason: AGITATION Last Admin: 12/16/16 07:33 Dose: 2 mg Metformin HCl (Glucophage*) 500 mg PO BID DI Last Admin: 12/15/16 21:35 Dose: 500 mg Olanzapine (Zyprexa * Tab Odt) 15 mg PO BID DI - Discharge Plan Discharge Plan: Outpatient Follow Up
[2016-12-16] MEDS: metFORMIN* 500 MG TAB PO SCH (11:43)
[2016-12-16] MEDS ORDERED: chlorproMAZINE INJ* 25 MG/ML 2 ML (50 MG) IM ONE ×2 (13:18)
[2016-12-16] MEDS ORDERED: chlorproMAZINE INJ* 25 MG/ML 2 ML (50 MG) ONE (13:20)
[2016-12-17] MEDS: Levothyroxine TAB* 75 MCG TAB PO SCH (06:10)
[2016-12-17] MEDS: metFORMIN* 500 MG TAB PO SCH ×3 (06:10→20:37)
[2016-12-17] MEDS: Divalproex DR TAB(*) 500 MG PO SCH ×2 (06:11→20:36)
[2016-12-17] MEDS: Citalopram TAB* 40 MG PO SCH ×2 (06:11→20:37)
[2016-12-17] MEDS: OLANzapine TAB*ODT* 10 MG TAB PO SCH ×3 (06:15→20:37)
[2016-12-17] MEDS: LORazepam TAB(*) 1 MG PO PRN (07:41)
--- NOTE | 2016-12-17 15:07 | PN ---
Subjective - Subjective Service Type: 53881 Hosp care 15 min low complexity Subjective: Rubens reports that he is not taking Zyprexa because he wants to get his mind clear to be able to deal with his problems outside the hospital. He expressed irritation at my review with him of the risks and benefits of Zyprexa, and my assessment that the benefits of improved organization of thought and behavior appear to outweigh risks of weight gain, diabetes and dyslipidemia. He reports dental problems 'down to the bone.' He denies active psychiatric symptoms except paranoia, but is unwilling to specify his paranoid concerns. Objective - Appearance Appearance: Obese Dysmorphic Features: No Hygiene: Mal-odorous Grooming: Disheveled - Behavior Psychomotor Activities: Abnormal-Decreased - Attitude and Relatedness Attitude and Relatedness: Dismissive - Speech Quality: Unpressured Latencies: Long Quantity: Terse - Mood Patient's Decription of Mood: "Okay" - Affect Observed Affect: Tense Affect Consistent with: Dysphoria - Thought Process Patient's Thought Process: Disorganized Thought Content: Yes Paranoid Ideation, No Passive Wish, No Suicidal Planning, No Homicidal Ideation - Sensorium Experiencing Hallucinations: No, Sensorium is Clear Type of Hallucinations: Visual: No, Auditory: No, Command: No - Level of Consciousness Level of Consciousness: Lethargic Orientation: Yes Orientated to Place, Yes Orientated to Person - Impulse Control Impulse Control: Tenuous - Insight and Judgement Insight and Judgement: Poor - Group Participation Particating in Group Activities: Yes Group Participation Comments: but few of them - Medication Management Medication Management Adherence: Partial - refusing Zyprexa Assessment - Assessment Merits Inpatient Hospitalization: For Stabilization, For Discharge Planning, Pending Safe DC Plan Inpatient DSM-IV Dx: Chronic psychotic disorder, schizophrenia versus schizoaffective disorder. Clinical Impression: Rubens Lunsford is a 36-year-old man admitted for safety, assessment and treatment due to irritability, paranoia and increased distress after a period of apparent medication nonadherence. He requires continued hospitalization for reduction of continued irritability and disorganization, which might respond to Zyprexa, which he has been refusing. He is at chronic demonstrated risk for disruptive behavior, destruction of property and harm to others, as well as elevated chronic suicide risk. He continues on Depakote, Celexa for Lexapro, and is being advised of likely benefit of adherence with Zyprexa. He continues to regularly use 50 mg chlorpromazine prn agitation. Plan - Plan Treatment Plan: Name: RUBENS LUNSFORD Birthdate: 1980 [id number] Continue current treatment plan. Medications: Current Medications Acetaminophen (Tylenol Tab*) 650 mg PO Q4H PRN PRN Reason: PAIN or TEMP > 101 F Last Admin: 12/17/16 07:41 Dose: 650 mg Al Hydrox/Mg Hydrox/Simethicone (Maalox Plus*) 30 ml PO Q4H PRN PRN Reason: INDIGESTION Chlorpromazine HCl (Thorazine Tab*) 50 mg PO Q4H PRN PRN Reason: AGITATION Last Admin: 12/16/16 07:33 Dose: 50 mg Citalopram Hydrobromide (Celexa Tab*) 40 mg PO BEDTIME DI PRN Reason: Protocol Last Admin: 12/17/16 06:11 Dose: 40 mg Diphenhydramine HCl (Benadryl Po*) 50 mg PO Q6H PRN PRN Reason: AGITATION Last Admin: 12/16/16 07:33 Dose: 50 mg Divalproex Sodium (Depakote Dr Tab(*)) 2,500 mg PO BEDTIME DI Last Admin: 12/17/16 06:11 Dose: 2,500 mg Levothyroxine Sodium (Synthroid Tab*) 75 mcg PO 0600 DI Last Admin: 12/17/16 06:10 Dose: 75 mcg Lorazepam (Ativan Tab(*)) 2 mg PO Q6H PRN PRN Reason: AGITATION Last Admin: 12/17/16 07:41 Dose: 2 mg Metformin HCl (Glucophage*) 500 mg PO BID DI Last Admin: 12/17/16 09:11 Dose: Not Given Olanzapine (Zyprexa *Odt*) 20 mg PO BID DI Last Admin: 12/17/16 09:11 Dose: Not Given - Discharge Plan Discharge Plan: Outpatient Follow Up Outpatient Program: [facility]
[2016-12-18] MEDS: LORazepam TAB(*) 1 MG PO PRN (05:00)
[2016-12-18] MEDS: Levothyroxine TAB* 75 MCG TAB PO SCH (06:00)
[2016-12-18 07:57] VITALS: BP 151/116
--- NOTE | 2016-12-18 08:43 | ED ---
Gabriella Garcia Auryana, scribed for Don Rojas MD on 12/12/16 at 0927 . Psychiatric Complaint - HPI Summary HPI Summary: 36 year old male comes in voluntarily for an unknown reason - "fucking dumb" per triage. Patient is angry, hostile and aggressive- swearing is chosen form of communication. He is uncooperative for history of present illness and physical examination-level 5 caveat. PER EMR RECORDS- extensive history with psychiatric issues and admission. Medically clear at 09:23 - History Of Current Complaint Chief Complaint: EDMentalHealth Time Seen by Provider: 12/12/16 08:58 Hx Obtained From: Patient Hx From Patient Unobtainable Due To: Other - level 5 caveat - uncooperative Onset/Duration: Still Present Character: Angry, Frustrated Associated Signs And Symptoms: Positive: Hostile - Allergies/Home Medications Allergies/Adverse Reactions: Allergies Allergy/AdvReac Type Severity Reaction Status Date / Time No Known Allergies Allergy Verified 08/26/16 01:58 Home Medications: Home Medications metFORMIN* [Glucophage 500 MG TAB *] 500 mg PO BID 12/12/16 [History Confirmed 12/12/16] PMH/Surg Hx/FS Hx/Imm Hx Endocrine/Hematology History: Reports: Hx Diabetes, Hx Thyroid Disease Sensory History: Reports: Hx Contacts or Glasses Opthamlomology History: Reports: Hx Contacts or Glasses Psychiatric History: Reports: Hx Inpatient Treatment, Hx Community Mental Health Tx, Hx Schizophrenia, Hx Bipolar Disorder, Hx of Violent Episodes Against Others Denies: Hx Eating Disorder - Surgical History Surgery Procedure, Year, and Place: patient reports history of gall bladder surgery and a corneal transplant - Immunization History Date of Tetanus Vaccine: unknown Date of Influenza Vaccine: unknown Infectious Disease History: No Infectious Disease History: Denies: Traveled Outside the [place] in Last 30 Days - Family History Known Family History: Positive: Unknown, Hypertension, Diabetes, Other - father- - schizophrenia. Brothers--mood disorder. Mother-- depression - Social History Alcohol Use: None Hx Substance Use: No Substance Use Type: Reports: None Hx Tobacco Use: Yes Smoking Status (MU): Current Every Day Smoker Amount Used/How Often: 7-9 cigarettes a day Length of Time of Smoking/Using Tobacco: can't recall Have You Smoked in the Last Year: Yes - Pt states he smoke last yesterday Review of Systems ENT: Negative Cardiovascular: Negative Respiratory: Negative Gastrointestinal: Negative Genitourinary: Negative Musculoskeletal: Negative Skin: Negative Neurological: Negative Psychological: Other All Other Systems Reviewed And Are Negative: Yes Physical Exam Triage Information Reviewed: Yes Vital Signs On Initial Exam: Initial Vitals Temp Pulse Resp Pulse Ox 98.6 F 126 18 100 12/12/16 08:48 12/12/16 08:48 12/12/16 08:48 12/12/16 08:48 Vital Signs Reviewed: Yes Completion Of Physical Exam Limited Due To: Level 5 - due to uncooperative nature Appearance: Positive: No Pain Distress Psychiatric: Positive: Patient Uncooperative for Exam Diagnostics - Vital Signs Vital Signs Temp Pulse Resp BP Pulse Ox 12/12/16 09:04 98.6 F 126 20 000/00 98 12/12/16 08:48 98.6 F 126 18 100 - Laboratory Lab Results: Lab Results 12/12/16 12/12/16 Range/Units 09:21 09:21 WBC 15.8 H (3.5-10.8) 10^3/ul RBC 5.36 (4.0-5.4) 10^6/ul Hgb 16.0 (14.0-18.0) g/dl Hct 47 (42-52) % MCV 88 (80-94) fL MCH 30 (27-31) pg MCHC 34 (31-36) g/dl RDW 13 (10.5-15) % Plt Count 292 (150-450) 10^3/ul MPV 8 (7.4-10.4) um3 Neut % (Auto) 70.9 (38-83) % Lymph % (Auto) 16.2 L (25-47) % Granite % (Auto) 11.2 H (1-9) % Eos % (Auto) 0.8 (0-6) % Baso % (Auto) 0.9 (0-2) % Absolute Neuts (auto) 11.2 H (1.5-7.7) 10^3/ul Absolute Lymphs (auto) 2.6 (1.0-4.8) 10^3/ul Absolute Monos (auto) 1.8 H (0-0.8) 10^3/ul Absolute Eos (auto) 0.1 (0-0.6) 10^3/ul Absolute Basos (auto) 0.1 (0-0.2) 10^3/ul Absolute Nucleated RBC 0.03 10^3/ul Nucleated RBC % 0.2 Sodium 137 (133-145) mmol/L Potassium 3.6 (3.5-5.0) mmol/L Chloride 105 (101-111) mmol/L Carbon Dioxide 20 L (22-32) mmol/L Anion Gap 12 H (2-11) mmol/L BUN 10 (6-24) mg/dL Creatinine 0.63 L (0.67-1.17) mg/dL Est GFR ( Amer) 183.3 (>60) Est GFR (Non-Af Amer) 142.5 (>60) BUN/Creatinine Ratio 15.9 (8-20) Glucose 163 H (70-100) mg/dL Calcium 10.1 (8.6-10.3) mg/dL Total Bilirubin 1.20 H (0.2-1.0) mg/dL AST 23 (13-39) U/L ALT 32 (7-52) U/L Alkaline Phosphatase 61 (34-104) U/L Total Protein 7.8 (6.4-8.9) g/dL Albumin 4.8 (3.2-5.2) g/dL Globulin 3.0 (2-4) g/dL Albumin/Globulin Ratio 1.6 (1-3) TSH 4.93 (0.34-5.60) mcIU/mL Salicylates < 2.50 (<30) mg/dL Acetaminophen < 15 mcg/mL Valproic Acid < 13.0 L (50-100) mcg/mL Serum Alcohol < 10 (<10) mg/dL Result Diagrams: 12/12/16 09:21 12/12/16 09:21 Lab Statement: Any lab studies that have been ordered have been reviewed, and results considered in the medical decision making process. Course/Dx - Differential Dx/Clinical Impression Provider Diagnosis: Mental health problem Discharge - Discharge Plan Condition: Stable [facility] [place] The documentation as recorded by the Gabriella ejan Auryana accurately reflects the service I personally performed and the decisions made by , Don Rojas MD.
[2016-12-18] MEDS: metFORMIN* 500 MG TAB PO SCH (09:19)
[2016-12-18 09:22] LABS: Mean Platelet Volume 9 um3 (7.4-10.4)
[2016-12-18] MEDS: OLANzapine TAB*ODT* 10 MG TAB PO SCH (11:25)
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
[2016-12-18] MEDS ORDERED: Divalproex ER TAB(*) 500 MG PO SCH (21:00)
== END 2016-12-18 14:15 | disposition home or self-care (01) | DRG 885 ==
LOC: ED 08:44 → BSU 17:19
PROVIDERS: ADMIT Psychiatry & Neurology Psychiatry; ATTEND Psychiatry & Neurology Psychiatry
DX: F28 Other psychotic disorder not due to a substance or known physiological condition (principal); E66.01 Morbid (severe) obesity due to excess calories; F20.9 Schizophrenia, unspecified; F25.9 Schizoaffective disorder, unspecified; Z68.39 Body mass index [BMI] 39.0-39.9, adult; E03.9 Hypothyroidism, unspecified; E11.9 Type 2 diabetes mellitus without complications
CPT/HCPCS: 36415; 80053; 80164; 80320; 80329; 84443; 84450; 84460; 85025; 85049; 99222; 99231; 99238; A9270-GY; G0480; J1200; J1630; J2060

== ENCOUNTER 2016-12-29 06:15 | Emergency (ER) | payer MEDICARE, MEDICAID ==
[2016-12-29] MEDS ORDERED: OLANzapine TAB* 5 MG ONE ×2 (06:19→06:21)
[2016-12-29] MEDS ORDERED: OLANzapine TAB* 5 MG PO ONE (06:23)
[2016-12-29] MEDS ORDERED: LORazepam TAB(*) 1 MG PO ONE (06:34)
[2016-12-29] MEDS ORDERED: LORazepam TAB(*) 1 MG ONE (06:35)
[2016-12-29 07:05] LABS: Hematocrit 47 % (42-52); Hemoglobin 15.8 g/dl (14.0-18.0); Mean Corpuscular HGB Conc 34 g/dl (31-36); Mean Corpuscular Hemoglobin 30 pg (27-31); Mean Corpuscular Volume 90 fL (80-94); Mean Platelet Volume 10 um3 (7.4-10.4); Red Blood Count 5.22 10^6/ul (4.0-5.4); Red Cell Distribution Width 13 % (10.5-15); White Blood Count 10.9 10^3/ul (3.5-10.8)
[2016-12-29 07:21] LABS: ALT 37 U/L (7-52); AST 19 U/L (13-39); Albumin 4.5 g/dL (3.2-5.2); Alkaline Phosphatase 53 U/L (34-104); Anion Gap 11 mmol/L (2-11); BUN/Creatinine Ratio 11.1 (8-20); Blood Urea Nitrogen 8 mg/dL (6-24); CO2 Carbon Dioxide 21 mmol/L (22-32); Calcium 9.5 mg/dL (8.6-10.3); Chloride 106 mmol/L (101-111); EGFR African American 157.1 (>60); EGFR Non-African American 122.2 (>60); Globulin 2.7 g/dL (2-4); Glucose 151 mg/dL (70-100); Potassium 3.6 mmol/L (3.5-5.0); Sodium 138 mmol/L (133-145); Total Protein 7.2 g/dL (6.4-8.9)
[2016-12-29 07:26] LABS: Acetaminophen < 15 mcg/mL; Alcohol < 10 mg/dL (<10); Salicylate < 2.50 mg/dL (<30)
[2016-12-29 07:37] LABS: TSH (Thyroid Stimulating Horm) 1.73 mcIU/mL (0.34-5.60)
[2016-12-29 11:14] VITALS: BP 119/74
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
== END 2016-12-29 16:11 | disposition home or self-care (01) ==
LOC: ED 06:15
DX: F20.0 Paranoid schizophrenia (principal); F17.210 Nicotine dependence, cigarettes, uncomplicated
CPT/HCPCS: 36415; 80053; 80320; 80329; 84443; 85025; 99284; A9270-GY; G0480

== ENCOUNTER → 2016-12-31 01:25 | Emergency (ER) | payer MEDICARE, MEDICAID ==
[~2016-12-31 01:25] MED LIST: OLANzapine TAB* 2.5 MG PO ONE
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
[2016-12-31 07:40] VITALS: BP 149/100
== END ==
LOC: ED 01:25
DX: F20.9 Schizophrenia, unspecified (principal); F41.8 Other specified anxiety disorders; G47.9 Sleep disorder, unspecified; F17.210 Nicotine dependence, cigarettes, uncomplicated
CPT/HCPCS: 99285; A9270-GY

== ENCOUNTER 2017-01-02 19:53 | Inpatient (IN) | payer MEDICARE, MEDICAID ==
[2017-01-02] MEDS ORDERED: LORazepam TAB(*) 1 MG PO ONE (20:01)
[2017-01-02] MEDS ORDERED: OLANzapine TAB*ODT* 5 MG PO ONE (20:01)
[2017-01-02 21:02] LABS: Hematocrit 42 % (42-52); Hemoglobin 14.1 g/dl (14.0-18.0); Mean Corpuscular HGB Conc 33 g/dl (31-36); Mean Corpuscular Hemoglobin 30 pg (27-31); Mean Corpuscular Volume 89 fL (80-94); Mean Platelet Volume 9 um3 (7.4-10.4); Red Blood Count 4.74 10^6/ul (4.0-5.4); Red Cell Distribution Width 13 % (10.5-15); White Blood Count 8.3 10^3/ul (3.5-10.8)
[2017-01-02 21:22] LABS: ALT 40 U/L (7-52); AST 17 U/L (13-39); Albumin 4.1 g/dL (3.2-5.2); Alkaline Phosphatase 54 U/L (34-104); Anion Gap 10 mmol/L (2-11); BUN/Creatinine Ratio 10.4 (8-20); Blood Urea Nitrogen 7 mg/dL (6-24); CO2 Carbon Dioxide 22 mmol/L (22-32); Calcium 9.4 mg/dL (8.6-10.3); Chloride 107 mmol/L (101-111); EGFR African American 170.7 (>60); EGFR Non-African American 132.8 (>60); Globulin 2.4 g/dL (2-4); Glucose 126 mg/dL (70-100); Potassium 3.2 mmol/L (3.5-5.0); Sodium 139 mmol/L (133-145); Total Protein 6.5 g/dL (6.4-8.9)
[2017-01-02 22:01] LABS: Acetaminophen < 15 mcg/mL; Alcohol < 10 mg/dL (<10); Salicylate < 2.50 mg/dL (<30)
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
--- NOTE | 2017-01-03 06:49 | ED ---
Anand Garcia Rebecca, scribed for Brayden Flor on 01/03/17 at 0625 . Progress - Results/Orders Results/Orders: Pt was signed out from Crys ORANTES). MHE was attempting in the middle of the night but due to medications administered in the course of the ED, the pt was unable to stay awake for evaluators. Pt is being held in the ED, awaiting the psychiatrist evaluation and final disposition. Psychiatrist will evaluate pt in the morning in the ED. Course/Dx - Diagnoses Provider Diagnoses: Paranoid schizophrenia The documentation as recorded by the Anand jean Rebecca accurately reflects the service I personally performed and the decisions made by Chacho kaye Emmanuel.
[2017-01-03 21:41] LABS: Urine Bacteria Absent (Absent); Urine Bilirubin Negative (Negative); Urine Glucose Negative (Negative); Urine Nitrite Negative (Negative)
[2017-01-03 21:56] LABS: Benzodiazepine Urine Screen None Detected (None Detect)
[2017-01-03] MEDS ORDERED: Nicotine Inhaler* 10 MG AMP INH PRN (22:09)
[2017-01-03] MEDS ORDERED: chlorproMAZINE TAB* 200 MG PO PRN (22:12)
[2017-01-03] MEDS ORDERED: diPHENhydraMINE PO* 50 MG PO PRN (22:13)
[2017-01-03] MEDS ORDERED: LORazepam TAB(*) 1 MG PO ONE ×2 (22:40→22:41)
[2017-01-03] MEDS ORDERED: Mouth Piece, Nicotine* 1 EACH CARTRIDGE INH ONE (23:00)
[2017-01-03] MEDS ORDERED: LORazepam INJ* 2 MG/ML 1 ML VIAL IM ONE (23:04)
--- NOTE | 2017-01-03 23:23 | ED ---
Abram Garcia Aidan, scribed for Brayden Flor on 01/03/17 at 2247 . Progress - Progress Note Progress Note: The patient will be given another diagnosis of acute psychosis. He will be admitted for further monitoring. - Results/Orders Results/Orders: Pt was signed out from Crys ORANTES). MHE was attempting in the middle of the night but due to medications administered in the course of the ED, the pt was unable to stay awake for evaluators. Pt is being held in the ED, awaiting the psychiatrist evaluation and final disposition. Psychiatrist will evaluate pt in the morning in the ED. - Consult/PCP Time Called: 18:10 Course/Dx - Course Course Of Treatment: Patient cleared for MHE at 9pm. Labs WNL. Patient is a well known paranoid schizophrenic who has been seen in ED 3 of the last 5 days. He is unstable on his medication right now. He will await to be evaluated by psychiatrist. The patient will be diagnosed with acute psychosis and schizophrenia. - Diagnoses Provider Diagnoses: Paranoid schizophrenia, Acute psychosis - Provider Notifications Instructed by Provider To: Admit As Inpatient The documentation as recorded by the Abram jean Aidan accurately reflects the service I personally performed and the decisions made by Chacho kaye Emmanuel.
[2017-01-03] MEDS: OLANzapine TAB*ODT* 5 MG PO SCH (23:50)
[2017-01-03] MEDS: Divalproex ER TAB(*) 500 MG PO SCH (23:50)
[2017-01-04] MEDS: Levothyroxine TAB* 75 MCG TAB PO SCH (11:07)
[2017-01-04] MEDS: OLANzapine TAB*ODT* 5 MG PO SCH ×2 (11:07→21:14)
[2017-01-04] MEDS: Citalopram TAB* 40 MG PO SCH (11:07)
[2017-01-04] MEDS: metFORMIN* 500 MG TAB PO SCH ×2 (11:07→21:14)
[2017-01-04] MEDS: Divalproex ER TAB(*) 500 MG PO SCH (21:14)
[2017-01-04] MEDS ORDERED: chlorproMAZINE INJ* 25 MG/ML 2 ML (50 MG) IM ONE (23:00)
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
[2017-01-04] MEDS ORDERED: chlorproMAZINE INJ* 25 MG/ML 2 ML (50 MG) ONE (23:12)
[2017-01-05] MEDS: Citalopram TAB* 40 MG PO SCH (09:50)
[2017-01-05] MEDS: metFORMIN* 500 MG TAB PO SCH ×2 (09:50→20:23)
[2017-01-05] MEDS: OLANzapine TAB*ODT* 5 MG PO SCH ×2 (09:50→20:22)
[2017-01-05] MEDS: Levothyroxine TAB* 75 MCG TAB PO SCH (09:50)
[2017-01-05] MEDS: Divalproex ER TAB(*) 500 MG PO SCH (20:22)
[2017-01-06] MEDS: OLANzapine TAB*ODT* 5 MG PO SCH (09:20)
[2017-01-06] MEDS: Citalopram TAB* 40 MG PO SCH (09:21)
[2017-01-06] MEDS: Levothyroxine TAB* 75 MCG TAB PO SCH (09:21)
[2017-01-06] MEDS: metFORMIN* 500 MG TAB PO SCH (09:21)
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
[2017-01-06 12:47] VITALS: BP 144/89
[2017-01-06] MEDS ORDERED: OLANzapine TAB* 5 MG PO SCH (21:00)
== END 2017-01-06 15:15 | disposition home or self-care (01) | DRG 885 ==
LOC: ED 19:53 → BSU 01-03 23:34
PROVIDERS: ADMIT Psychiatry & Neurology Psychiatry; ATTEND Psychiatry & Neurology Psychiatry
DX: F28 Other psychotic disorder not due to a substance or known physiological condition (principal); F25.9 Schizoaffective disorder, unspecified; F20.9 Schizophrenia, unspecified
CPT/HCPCS: 36415; 80053; 80307; 80320; 80329; 81003; 81015; 84443; 85025; 99222; 99238; 99285; A9270-GY; G0480

== ENCOUNTER 2017-01-12 10:30 | Emergency (ER) | payer MEDICARE, MEDICAID ==
[2017-01-12] MEDS ORDERED: LORazepam TAB(*) 1 MG ONE (10:44)
[2017-01-12] MEDS ORDERED: diPHENhydraMINE PO* 50 MG ONE (10:44)
[2017-01-12] MEDS ORDERED: Haloperidol TAB* 5 MG ONE (10:44)
[2017-01-12 11:08] VITALS: BP 145/102
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
== END 2017-01-12 15:10 | disposition home or self-care (01) ==
LOC: ED 10:30
DX: Z00.8 Encounter for other general examination (principal); F41.8 Other specified anxiety disorders; F17.210 Nicotine dependence, cigarettes, uncomplicated
CPT/HCPCS: 99285; A9270-GY

== ENCOUNTER 2017-01-24 09:04 | Emergency (ER) | payer MEDICARE, MEDICAID ==
[2017-01-24 09:18] VITALS: BP 125/75
== END 2017-01-24 09:35 | disposition left against medical advice (07) ==
LOC: ED 09:04
DX: Z00.8 Encounter for other general examination (principal); Z53.21 Procedure and treatment not carried out due to patient leaving prior to being seen by health care provider

== ENCOUNTER 2017-01-24 22:19 | Emergency (ER) | payer MEDICARE, MEDICAID ==
[2017-01-24] MEDS ORDERED: OLANzapine TAB*ODT* 5 MG ONE (22:26)
[2017-01-24] MEDS ORDERED: OLANzapine TAB*ODT* 10 MG TAB PO ONE (22:33)
[2017-01-24 23:33] LABS: Hematocrit 45 % (42-52); Mean Corpuscular HGB Conc 34 g/dl (31-36); Mean Corpuscular Hemoglobin 30 pg (27-31); Mean Corpuscular Volume 88 fL (80-94); Mean Platelet Volume 9 um3 (7.4-10.4); Red Blood Count 5.08 10^6/ul (4.0-5.4); Red Cell Distribution Width 13 % (10.5-15); White Blood Count 8.9 10^3/ul (3.5-10.8)
[2017-01-24 23:42] LABS: ALT 25 U/L (7-52); AST 15 U/L (13-39); Acetaminophen < 15 mcg/mL; Albumin 4.5 g/dL (3.2-5.2); Alcohol < 10 mg/dL (<10); Alkaline Phosphatase 54 U/L (34-104); Anion Gap 11 mmol/L (2-11); BUN/Creatinine Ratio 13.2 (8-20); Blood Urea Nitrogen 9 mg/dL (6-24); CO2 Carbon Dioxide 22 mmol/L (22-32); Calcium 9.9 mg/dL (8.6-10.3); Chloride 103 mmol/L (101-111); EGFR African American 167.8 (>60); EGFR Non-African American 130.5 (>60); Globulin 2.8 g/dL (2-4); Glucose 156 mg/dL (70-100); Potassium 3.7 mmol/L (3.5-5.0); Salicylate < 2.50 mg/dL (<30); Sodium 136 mmol/L (133-145); Total Protein 7.3 g/dL (6.4-8.9)
--- NOTE | 2017-01-24 23:47 | ED ---
Paola Garcia Alfonso, scribed for Leon Barron MD on 01/24/17 at 2335 . Psychiatric Complaint - HPI Summary HPI Summary: Level 5 caveat due to AMS. This patient is a 36 year old M presenting to [facility] for AMS since 2219 today. He was brought to the ED by his brother who is requesting for a MHE. Patient is declining a MHE at present, but states in triage I need help. Patient agitated. Sx aggravated by stress and alleviated by nothing. - History Of Current Complaint Chief Complaint: EDMentalHealth Time Seen by Provider: 01/24/17 23:03 Hx Obtained From: Patient, Family/Driver Guide, Medical Records Onset/Duration: Sudden Onset, Lasting Hours - Since 2219 today, Still Present Timing: Constant Severity Initially: Mild Severity Currently: None Aggravating Factor(s): Recent Stress Alleviating Factor(s): Nothing - Allergies/Home Medications Allergies/Adverse Reactions: Allergies Allergy/AdvReac Type Severity Reaction Status Date / Time No Known Allergies Allergy Verified 01/04/17 13:21 PMH/Surg Hx/FS Hx/Imm Hx Endocrine/Hematology History: Reports: Hx Diabetes, Hx Thyroid Disease Sensory History: Reports: Hx Contacts or Glasses Denies: Hx Hearing Aid Opthamlomology History: Reports: Hx Contacts or Glasses Psychiatric History: Reports: Hx Inpatient Treatment, Hx Community Mental Health Tx, Hx Schizophrenia, Hx Bipolar Disorder, Hx of Violent Episodes Against Others Denies: Hx Eating Disorder - Surgical History Surgery Procedure, Year, and Place: patient reports history of gall bladder surgery and a corneal transplant - Immunization History Date of Tetanus Vaccine: unknown Date of Influenza Vaccine: unknown Infectious Disease History: No Infectious Disease History: Denies: Traveled Outside the [place] in Last 30 Days - Family History Known Family History: Positive: Hypertension, Diabetes, Other - father-- schizophrenia. Brothers--mood disorder. Mother-- depression - Social History Alcohol Use: None Hx Substance Use: No Substance Use Type: Reports: None Hx Tobacco Use: Yes Smoking Status (MU): Current Every Day Smoker Type: Cigarettes Amount Used/How Often: 7-9 cigarettes a day Length of Time of Smoking/Using Tobacco: can't recall Have You Smoked in the Last Year: Yes - Pt states he smoke last yesterday Review of Systems - ROS Summary Review of Systems Summary: Level 5 caveat due to AMS. Neurological: Other - Positive AMS Positive: Other - Positive agitated All Other Systems Reviewed And Are Negative: No Physical Exam - Summary Physical Exam Summary: Level 5 caveat due to AMS. Triage Information Reviewed: Yes Vital Signs On Initial Exam: Initial Vitals Temp Pulse Resp BP Pulse Ox 98.9 F 110 20 177/91 97 01/24/17 22:20 01/24/17 22:20 01/24/17 22:20 01/24/17 22:20 01/24/17 22:20 Vital Signs Reviewed: Yes Appearance: Positive: Well-Appearing, No Pain Distress Skin: Positive: Warm Head/Face: Positive: Normal Head/Face Inspection ENT: Positive: Hearing grossly normal Respiratory/Lung Sounds: Positive: Breath Sounds Present Musculoskeletal: Positive: Strength/ROM Intact Neurological: Positive: Alert, Oriented to Person Place, Time Psychiatric: Positive: Affect/Mood Appropriate - Gerardo Coma Scale Coma Scale Total: 15 Diagnostics - Vital Signs Vital Signs Temp Pulse Resp BP Pulse Ox 01/24/17 22:43 99.2 F 120 20 150/104 96 01/24/17 22:20 98.9 F 110 20 177/91 97 - Laboratory Lab Results: Lab Results 01/24/17 01/24/17 Range/Units 22:58 22:58 WBC 8.9 (3.5-10.8) 10^3/ul RBC 5.08 (4.0-5.4) 10^6/ul Hgb 15.0 (14.0-18.0) g/dl Hct 45 (42-52) % MCV 88 (80-94) fL MCH 30 (27-31) pg MCHC 34 (31-36) g/dl RDW 13 (10.5-15) % Plt Count 216 (150-450) 10^3/ul MPV 9 (7.4-10.4) um3 Neut % (Auto) 68.3 (38-83) % Lymph % (Auto) 20.8 L (25-47) % Cavalier % (Auto) 9.1 H (1-9) % Eos % (Auto) 1.3 (0-6) % Baso % (Auto) 0.5 (0-2) % Absolute Neuts (auto) 6.1 (1.5-7.7) 10^3/ul Absolute Lymphs (auto) 1.8 (1.0-4.8) 10^3/ul Absolute Monos (auto) 0.8 (0-0.8) 10^3/ul Absolute Eos (auto) 0.1 (0-0.6) 10^3/ul Absolute Basos (auto) 0 (0-0.2) 10^3/ul Absolute Nucleated RBC 0.02 10^3/ul Nucleated RBC % 0.2 Sodium 136 (133-145) mmol/L Potassium 3.7 (3.5-5.0) mmol/L Chloride 103 (101-111) mmol/L Carbon Dioxide 22 (22-32) mmol/L Anion Gap 11 (2-11) mmol/L BUN 9 (6-24) mg/dL Creatinine 0.68 (0.67-1.17) mg/dL Est GFR ( Amer) 167.8 (>60) Est GFR (Non-Af Amer) 130.5 (>60) BUN/Creatinine Ratio 13.2 (8-20) Glucose 156 H (70-100) mg/dL Calcium 9.9 (8.6-10.3) mg/dL Total Bilirubin 0.80 (0.2-1.0) mg/dL AST 15 (13-39) U/L ALT 25 (7-52) U/L Alkaline Phosphatase 54 (34-104) U/L Total Protein 7.3 (6.4-8.9) g/dL Albumin 4.5 (3.2-5.2) g/dL Globulin 2.8 (2-4) g/dL Albumin/Globulin Ratio 1.6 (1-3) TSH Pending Salicylates < 2.50 (<30) mg/dL Acetaminophen < 15 mcg/mL Serum Alcohol < 10 (<10) mg/dL Result Diagrams: 01/24/17 22:58 01/24/17 22:58 Lab Statement: Any lab studies that have been ordered have been reviewed, and results considered in the medical decision making process. Re-Evaluation - Re-Evaluation First Eval Change: Improved - pt seen and cleared by psych Course/Dx - Differential Dx/Clinical Impression Provider Diagnosis: Excessive anger Discharge - Discharge Plan Condition: Stable Disposition: HOME Referrals: No Primary Care Phys,NOPCP [Primary Care Provider] - The documentation as recorded by the Paola jean Alfonso accurately reflects the service I personally performed and the decisions made by me, Leon Barron MD.
[2017-01-24 23:52] LABS: TSH (Thyroid Stimulating Horm) 2.42 mcIU/mL (0.34-5.60)
[2017-01-25 01:00] VITALS: BP 135/94
== END 2017-01-25 01:02 | disposition home or self-care (01) ==
LOC: ED 22:19
DX: R45.4 Irritability and anger (principal)
CPT/HCPCS: 36415; 80053; 80320; 80329; 84443; 85025; 99281; A9270-GY; G0480

== ENCOUNTER 2017-02-02 17:33 | Emergency (ER) | payer MEDICARE, MEDICAID ==
[2017-02-02] MEDS ORDERED: LORazepam TAB(*) 1 MG PO ONE (18:16)
[2017-02-02] MEDS ORDERED: Haloperidol TAB* 5 MG PO ONE (18:16)
[2017-02-02] MEDS: diPHENhydraMINE PO* 50 MG PO ONE ×2 (20:05→21:53)
[2017-02-02] MEDS ORDERED: Haloperidol INJ IV/IM* 5 MG/ML AMP ONE (20:05)
[2017-02-02] MEDS ORDERED: diPHENhydraMINE IV* 50 MG/ML 1 ml VIAL (BENADRYL) ONE (20:05)
[2017-02-02] MEDS ORDERED: LORazepam INJ* 2 MG/ML 1 ML VIAL ONE (20:05)
[2017-02-02] MEDS ORDERED: Divalproex ER TAB(*) 500 MG ONE (20:14)
[2017-02-02] MEDS ORDERED: OLANzapine TAB* 5 MG ONE (20:14)
[2017-02-02] MEDS ORDERED: metFORMIN* 500 MG TAB ONE (20:14)
[2017-02-02] MEDS ORDERED: OLANzapine TAB*ODT* 10 MG TAB PO ONE (20:20)
[2017-02-02] MEDS ORDERED: Divalproex ER TAB(*) 500 MG PO ONE (20:21)
[2017-02-02] MEDS ORDERED: Nicotine Inhaler* 10 MG AMP INH ONE (20:23)
[2017-02-02] MEDS ORDERED: Escitalopram (NF) 20 MG TAB PO ONE (20:23)
[2017-02-02] MEDS ORDERED: metFORMIN* 500 MG TAB PO ONE (20:24)
[2017-02-02] MEDS ORDERED: chlorproMAZINE INJ* 25 MG/ML 2 ML (50 MG) IM ONE (20:26)
[2017-02-02 21:48] LABS: ALT 33 U/L (7-52); AST 22 U/L (13-39); Albumin 4.1 g/dL (3.2-5.2); Alkaline Phosphatase 58 U/L (34-104); Anion Gap 10 mmol/L (2-11); BUN/Creatinine Ratio 17.5 (8-20); Blood Urea Nitrogen 14 mg/dL (6-24); CO2 Carbon Dioxide 23 mmol/L (22-32); Calcium 9.8 mg/dL (8.6-10.3); Chloride 105 mmol/L (101-111); EGFR African American 139.1 (>60); EGFR Non-African American 108.2 (>60); Globulin 2.7 g/dL (2-4); Glucose 116 mg/dL (70-100); Potassium 3.7 mmol/L (3.5-5.0); Sodium 138 mmol/L (133-145); Total Protein 6.8 g/dL (6.4-8.9)
--- NOTE | 2017-02-02 21:54 | ED ---
Paola Garcia Alfonso, scribed for Aguilar Escudero MD on 02/02/17 at 1852 . Psychiatric Complaint - HPI Summary HPI Summary: This patient is a 36 year old male brought in by police to [facility] for homicidal thoughts at 1600. He is angry, stating I will explode on people at any time and you are all so fucking dumb." He also states I am physically really sick and "If you dont listen to my problems then lock me up." Symptoms aggravated and alleviated by nothing. He reports rhinorrhea. He denies ETOH and substance use. He affirms "I am not thinking of harming myself." - History Of Current Complaint Chief Complaint: EDMentalHealth Time Seen by Provider: 02/02/17 18:06 Hx Obtained From: Patient Onset/Duration: Sudden Onset, Lasting Hours - since 1600 today Timing: Constant Severity Initially: Moderate Severity Currently: Moderate Character: Angry Aggravating Factor(s): Nothing Alleviating Factor(s): Nothing Has Homicidal: Reports: Thoughts - Allergies/Home Medications Allergies/Adverse Reactions: Allergies Allergy/AdvReac Type Severity Reaction Status Date / Time No Known Allergies Allergy Verified 01/04/17 13:21 PMH/Surg Hx/FS Hx/Imm Hx Endocrine/Hematology History: Reports: Hx Diabetes, Hx Thyroid Disease Sensory History: Reports: Hx Contacts or Glasses Denies: Hx Hearing Aid Opthamlomology History: Reports: Hx Contacts or Glasses Psychiatric History: Reports: Hx Inpatient Treatment, Hx Community Mental Health Tx, Hx Schizophrenia, Hx Bipolar Disorder, Hx of Violent Episodes Against Others Denies: Hx Eating Disorder - Surgical History Surgery Procedure, Year, and Place: patient reports history of gall bladder surgery and a corneal transplant - Immunization History Date of Tetanus Vaccine: unknown Date of Influenza Vaccine: unknown Infectious Disease History: Denies: Traveled Outside the [place] in Last 30 Days - Family History Known Family History: Positive: Hypertension, Diabetes, Other - father-- schizophrenia. Brothers--mood disorder. Mother-- depression - Social History Alcohol Use: None Hx Substance Use: No Substance Use Type: Reports: None Hx Tobacco Use: Yes Smoking Status (MU): Current Every Day Smoker Type: Cigarettes Amount Used/How Often: 7-9 cigarettes a day Length of Time of Smoking/Using Tobacco: can't recall Have You Smoked in the Last Year: Yes - Pt states he smoke last yesterday Review of Systems Positive: Other - Positive rhinorrhea Neurological: Other - Positive homicidal thoughts Positive: Other - Positive angry All Other Systems Reviewed And Are Negative: Yes Physical Exam - Summary Physical Exam Summary: The patient is well-nourished in no acute distress and in no acute pain. The skin is warm and dry and skin color reflects adequate perfusion. HEENT: The head is normocephalic and atraumatic. The pupils are equal and reactive. The conjunctivae are clear and without drainage. Nares have a post nasal drip. Rhinorrhea and likely URI. Mouth reveals moist mucous membranes and the throat is without erythema and exudate. The external ears are intact. Neck is supple with full range of motion and non-tender. There are no carotid bruits. There is no neck vein distension. Respiratory: Chest is non-tender. Lungs are clear to auscultation and breath sounds are symmetrical and equal. Cardiovascular: Heart is regular rate and rhythm. There is no murmur or rub auscultated. There is no peripheral edema and pulses are symmetrical and equal. Abdomen: The abdomen is obese, soft and non-tender. There are normal bowel sounds heard in all four quadrants and there is no organomegaly palpated. Musculoskeletal: There is no back pain noted. Extremities are non-tender with full range of motion. There is good capillary refill. There is no peripheral edema or calf tenderness elicited. Neurological: Follows commands and is able to ambulate. Psychiatric: The patient has an angry and voicing homicidal thoughts. Triage Information Reviewed: Yes Vital Signs On Initial Exam: Initial Vitals Resp 24 02/02/17 20:05 Vital Signs Reviewed: Yes Diagnostics - Vital Signs Vital Signs Resp 02/02/17 20:05 24 - Laboratory Lab Results: Lab Results 02/02/17 Range/Units 21:27 Sodium 138 (133-145) mmol/L Potassium 3.7 (3.5-5.0) mmol/L Chloride 105 (101-111) mmol/L Carbon Dioxide 23 (22-32) mmol/L Anion Gap 10 (2-11) mmol/L BUN 14 (6-24) mg/dL Creatinine 0.80 (0.67-1.17) mg/dL Est GFR ( Amer) 139.1 (>60) Est GFR (Non-Af Amer) 108.2 (>60) BUN/Creatinine Ratio 17.5 (8-20) Glucose 116 H (70-100) mg/dL Calcium 9.8 (8.6-10.3) mg/dL Total Bilirubin 0.50 (0.2-1.0) mg/dL AST 22 (13-39) U/L ALT 33 (7-52) U/L Alkaline Phosphatase 58 (34-104) U/L Total Protein 6.8 (6.4-8.9) g/dL Albumin 4.1 (3.2-5.2) g/dL Globulin 2.7 (2-4) g/dL Albumin/Globulin Ratio 1.5 (1-3) TSH Pending Salicylates Pending Acetaminophen Pending Valproic Acid Pending Serum Alcohol Pending Result Diagrams: 02/02/17 21:27 Lab Statement: Any lab studies that have been ordered have been reviewed, and results considered in the medical decision making process. Course/Dx - Course Assessment/Plan: A 36 year-old M brought in by police to the ED with a CC of homicidal thoughts at 1600 today. He is angry and reports rhinorrhea. He stated I will explode on people at any time and ultimately did do so in the ED course. He required sedative medication and security to physically constrain him secondary to aggressive behavior. He stamped around the ED screaming at and threating staff. He attempted to break the glass door of his room. Police were called twice to the ED for his aggressive behavior. Patient is pending completion of mental health evaluation and appropriate placement to and appropriate mental health facility. Laboratory studies are pending. - Differential Dx/Clinical Impression Provider Diagnosis: Acute psychosis, Homicidal ideation, Aggressive behavior Discharge - Discharge Plan Condition: Improved Disposition: OTHER Discharge Disposition Comment: pending comopletion of mhe Referrals: No Primary Care Phys,NOPCP [Primary Care Provider] - The documentation as recorded by the Paola jean Alfonso accurately reflects the service I personally performed and the decisions made by me, Aguilar Escudero MD.
[2017-02-02 21:57] LABS: Hematocrit 42 % (42-52); Hemoglobin 14.2 g/dl (14.0-18.0); Mean Corpuscular HGB Conc 34 g/dl (31-36); Mean Corpuscular Hemoglobin 31 pg (27-31); Mean Corpuscular Volume 90 fL (80-94); Mean Platelet Volume 9 um3 (7.4-10.4); Red Blood Count 4.61 10^6/ul (4.0-5.4); Red Cell Distribution Width 13 % (10.5-15); White Blood Count 9.2 10^3/ul (3.5-10.8)
[2017-02-02 22:06] LABS: Acetaminophen < 15 mcg/mL; Alcohol < 10 mg/dL (<10); Salicylate < 2.50 mg/dL (<30)
[2017-02-02 22:16] LABS: TSH (Thyroid Stimulating Horm) 1.71 mcIU/mL (0.34-5.60)
[2017-02-02] MEDS ORDERED: LORazepam TAB(*) 1 MG PO PRN (22:19)
[2017-02-02] MEDS ORDERED: diPHENhydraMINE PO* 50 MG PO PRN (22:19)
[2017-02-02] MEDS ORDERED: Haloperidol TAB* 5 MG PO PRN (22:19)
[2017-02-03] MEDS ORDERED: LORazepam TAB(*) 1 MG PO ONE ×3 (09:09→12:33)
[2017-02-03] MEDS ORDERED: chlorproMAZINE TAB* 100 MG PO ONE ×3 (09:10→12:34)
[2017-02-03 09:28] LABS: Urine Bacteria Absent (Absent); Urine Bilirubin Negative (Negative); Urine Glucose Negative (Negative); Urine Nitrite Negative (Negative)
[2017-02-03 09:35] LABS: Benzodiazepine Urine Screen None Detected (None Detect)
[2017-02-03 09:36] VITALS: BP 142/81
[2017-02-03] MEDS ORDERED: Haloperidol TAB* 5 MG PO ONE (12:33)
== END 2017-02-03 13:16 ==
LOC: ED 17:33
DX: F23 Brief psychotic disorder (principal); R45.850 Homicidal ideations; F91.8 Other conduct disorders; Z04.8 Encounter for examination and observation for other specified reasons; E11.9 Type 2 diabetes mellitus without complications; Z79.84 Long term (current) use of oral hypoglycemic drugs; E07.9 Disorder of thyroid, unspecified; F31.9 Bipolar disorder, unspecified; Z90.49 Acquired absence of other specified parts of digestive tract; Z94.7 Corneal transplant status; F17.210 Nicotine dependence, cigarettes, uncomplicated
CPT/HCPCS: 36415; 80053; 80164; 80307; 80320; 80329; 81003; 81015; 84443; 85025; 93005; 96372; 99285; A9270-GY; G0480; J1200; J1630; J2060

== ENCOUNTER 2017-05-05 14:12 | Emergency (ER) | payer MEDICARE, MEDICAID ==
[2017-05-05] MEDS ORDERED: chlorproMAZINE INJ* 25 MG/ML 2 ML (50 MG) IM ONE (14:20)
[2017-05-05] MEDS ORDERED: LORazepam INJ* 2 MG/ML 1 ML VIAL IV ONE (14:20)
[2017-05-05] MEDS ORDERED: LORazepam INJ* 2 MG/ML 1 ML VIAL IM ONE (14:22)
[2017-05-05] MEDS ORDERED: LORazepam INJ* 2 MG/ML 1 ML VIAL ONE (14:24)
[2017-05-05] MEDS ORDERED: chlorproMAZINE INJ* 25 MG/ML 2 ML (50 MG) ONE (14:24)
[2017-05-05 15:40] LABS: Hematocrit 41 % (42-52); Hemoglobin 14.2 g/dl (14.0-18.0); Mean Corpuscular HGB Conc 35 g/dl (31-36); Mean Corpuscular Hemoglobin 31 pg (27-31); Mean Corpuscular Volume 89 fL (80-94); Mean Platelet Volume 9 um3 (7.4-10.4); Red Blood Count 4.55 10^6/ul (4.0-5.4); Red Cell Distribution Width 14 % (10.5-15); White Blood Count 8.7 10^3/ul (3.5-10.8)
[2017-05-05 15:53] LABS: ALT 30 U/L (7-52); AST 21 U/L (13-39); Albumin 4.3 g/dL (3.2-5.2); Alkaline Phosphatase 49 U/L (34-104); Anion Gap 8 mmol/L (2-11); Blood Urea Nitrogen 12 mg/dL (6-24); CO2 Carbon Dioxide 24 mmol/L (22-32); Calcium 9.6 mg/dL (8.6-10.3); Chloride 107 mmol/L (101-111); EGFR African American 183.3 (>60); EGFR Non-African American 142.5 (>60); Globulin 2.9 g/dL (2-4); Glucose 167 mg/dL (70-100); Potassium 3.2 mmol/L (3.5-5.0); Sodium 139 mmol/L (133-145); Total Protein 7.2 g/dL (6.4-8.9)
[2017-05-05 16:19] LABS: Acetaminophen < 15 mcg/mL; Alcohol < 10 mg/dL (<10); Salicylate < 2.50 mg/dL (<30)
[2017-05-05 16:38] LABS: TSH (Thyroid Stimulating Horm) 2.68 mcIU/mL (0.34-5.60)
[2017-05-05 20:50] LABS: Urine Bacteria Absent (Absent); Urine Bilirubin Negative (Negative); Urine Glucose Negative (Negative); Urine Nitrite Negative (Negative)
[2017-05-05 20:58] LABS: Benzodiazepine Urine Screen None Detected (None Detect)
--- NOTE | 2017-05-05 21:21 | ED ---
Richard Garcia Nilda, scribed for Benji Saavedra MD on 05/05/17 at 1444 . Psychiatric Complaint - HPI Summary HPI Summary: This patient is a 36 year old M brought in by police presenting to [facility] accompanied by correctional officers with a chief complaint of agitation since this morning. Per correctional officers, the patient's outreach contact center rep visited the patient at home, found him agitated, and requests mental health evaluation. Symptoms alleviated by nothing. PMHx of schizophrenia, bipolar disorder, violent episodes against others, and community mental health treatment. LEVEL 5 Caveat: History limited due to patients non-cooperative status. - History Of Current Complaint Chief Complaint: EDMentalHealth Time Seen by Provider: 05/05/17 14:18 Accompanied By: correctional officers Hx Obtained From: Other: - correctional officers Onset/Duration: Sudden Onset, Lasting Hours Timing: Constant Character: Angry - Agitated Alleviating Factor(s): Nothing Associated Signs And Symptoms: Positive: Hostile Related History: Positive For: Prior Psychiatric Issues - Allergies/Home Medications Allergies/Adverse Reactions: Allergies Allergy/AdvReac Type Severity Reaction Status Date / Time No Known Allergies Allergy Verified 01/04/17 13:21 PMH/Surg Hx/FS Hx/Imm Hx Endocrine/Hematology History: Reports: Hx Diabetes, Hx Thyroid Disease Sensory History: Reports: Hx Contacts or Glasses Denies: Hx Hearing Aid Opthamlomology History: Reports: Hx Contacts or Glasses Psychiatric History: Reports: Hx Inpatient Treatment, Hx Community Mental Health Tx, Hx Schizophrenia, Hx Bipolar Disorder, Hx of Violent Episodes Against Others Denies: Hx Eating Disorder - Surgical History Surgery Procedure, Year, and Place: patient reports history of gall bladder surgery and a corneal transplant - Immunization History Date of Tetanus Vaccine: unknown Date of Influenza Vaccine: unknown - Family History Known Family History: Positive: Unknown, Hypertension, Diabetes, Other - father- - schizophrenia. Brothers--mood disorder. Mother-- depression - Social History Alcohol Use: None Hx Substance Use: No Substance Use Type: Reports: None Hx Tobacco Use: Yes Smoking Status (MU): Current Every Day Smoker Type: Cigarettes Amount Used/How Often: 7-9 cigarettes a day Length of Time of Smoking/Using Tobacco: can't recall Have You Smoked in the Last Year: Yes - Pt states he smoke last yesterday Review of Systems - ROS Summary Review of Systems Summary: Level 5 Caveat: ROS limited due to patient's non-cooperative status. Psychological: Other - Agitation All Other Systems Reviewed And Are Negative: No Physical Exam Triage Information Reviewed: Yes Vital Signs On Initial Exam: Initial Vitals Resp 20 05/05/17 14:32 Vital Signs Reviewed: Yes Completion Of Physical Exam Limited Due To: Level 5 - Patient's non-cooperative status Appearance: Positive: Well-Appearing, No Pain Distress, Obese Skin: Positive: Warm, Skin Color Reflects Adequate Perfusion, Dry Head/Face: Positive: Normal Head/Face Inspection Musculoskeletal: Positive: Normal Psychiatric: Positive: Other - Agitated, Patient Uncooperative for Exam Diagnostics - Vital Signs Vital Signs Temp Pulse Resp BP Pulse Ox 05/05/17 16:53 98.8 F 72 14 00/ 96 05/05/17 14:32 20 - Laboratory Lab Results: Lab Results 05/05/17 05/05/17 05/05/17 Range/Units 15:23 15:23 20:30 WBC 8.7 (3.5-10.8) 10^3/ul RBC 4.55 (4.0-5.4) 10^6/ul Hgb 14.2 (14.0-18.0) g/dl Hct 41 L (42-52) % MCV 89 (80-94) fL MCH 31 (27-31) pg MCHC 35 (31-36) g/dl RDW 14 (10.5-15) % Plt Count 179 (150-450) 10^3/ul MPV 9 (7.4-10.4) um3 Neut % (Auto) 66.3 (38-83) % Lymph % (Auto) 23.6 L (25-47) % [place] % (Auto) 8.7 (1-9) % Eos % (Auto) 1.0 (0-6) % Baso % (Auto) 0.4 (0-2) % Absolute Neuts (auto) 5.8 (1.5-7.7) 10^3/ul Absolute Lymphs (auto) 2.0 (1.0-4.8) 10^3/ul Absolute Monos (auto) 0.8 (0-0.8) 10^3/ul Absolute Eos (auto) 0.1 (0-0.6) 10^3/ul Absolute Basos (auto) 0 (0-0.2) 10^3/ul Absolute Nucleated RBC 0.02 10^3/ul Nucleated RBC % 0.2 Sodium 139 (133-145) mmol/L Potassium 3.2 L (3.5-5.0) mmol/L Chloride 107 (101-111) mmol/L Carbon Dioxide 24 (22-32) mmol/L Anion Gap 8 (2-11) mmol/L BUN 12 (6-24) mg/dL Creatinine 0.63 L (0.67-1.17) mg/dL Est GFR ( Amer) 183.3 (>60) Est GFR (Non-Af Amer) 142.5 (>60) BUN/Creatinine Ratio 19.0 (8-20) Glucose 167 H (70-100) mg/dL Calcium 9.6 (8.6-10.3) mg/dL Total Bilirubin 0.80 (0.2-1.0) mg/dL AST 21 (13-39) U/L ALT 30 (7-52) U/L Alkaline Phosphatase 49 (34-104) U/L Total Protein 7.2 (6.4-8.9) g/dL Albumin 4.3 (3.2-5.2) g/dL Globulin 2.9 (2-4) g/dL Albumin/Globulin Ratio 1.5 (1-3) TSH 2.68 (0.34-5.60) mcIU/mL Urine Color Urine Appearance Urine pH (5-9) Ur Specific [place] (1.010-1.030) Urine Protein (Negative) Urine Ketones (Negative) Urine Blood (Negative) Urine Nitrate (Negative) Urine Bilirubin (Negative) Urine Urobilinogen (Negative) Ur Leukocyte Esterase (Negative) Urine WBC (Auto) (Absent) Urine RBC (Auto) (Absent) Urine Bacteria (Absent) Hyaline Casts (Absent) Urine Glucose (Negative) Salicylates < 2.50 (<30) mg/dL Urine Opiates Screen None detected (None Detect) Acetaminophen < 15 mcg/mL Ur Barbiturates Screen None detected (None Detect) Ur Phencyclidine Scrn None detected (None Detect) Ur Amphetamines Screen None detected (None Detect) U Benzodiazepines Scrn None detected (None Detect) Urine Cocaine Screen None detected (None Detect) U Cannabinoids Screen None detected (None Detect) Serum Alcohol < 10 (<10) mg/dL 05/05/17 Range/Units 20:30 WBC (3.5-10.8) 10^3/ul RBC (4.0-5.4) 10^6/ul Hgb (14.0-18.0) g/dl Hct (42-52) % MCV (80-94) fL MCH (27-31) pg MCHC (31-36) g/dl RDW (10.5-15) % Plt Count (150-450) 10^3/ul MPV (7.4-10.4) um3 Neut % (Auto) (38-83) % Lymph % (Auto) (25-47) % [place] % (Auto) (1-9) % Eos % (Auto) (0-6) % Baso % (Auto) (0-2) % Absolute Neuts (auto) (1.5-7.7) 10^3/ul Absolute Lymphs (auto) (1.0-4.8) 10^3/ul Absolute Monos (auto) (0-0.8) 10^3/ul Absolute Eos (auto) (0-0.6) 10^3/ul Absolute Basos (auto) (0-0.2) 10^3/ul Absolute Nucleated RBC 10^3/ul Nucleated RBC % Sodium (133-145) mmol/L Potassium (3.5-5.0) mmol/L Chloride (101-111) mmol/L Carbon Dioxide (22-32) mmol/L Anion Gap (2-11) mmol/L BUN (6-24) mg/dL Creatinine (0.67-1.17) mg/dL Est GFR ( Amer) (>60) Est GFR (Non-Af Amer) (>60) BUN/Creatinine Ratio (8-20) Glucose (70-100) mg/dL Calcium (8.6-10.3) mg/dL Total Bilirubin (0.2-1.0) mg/dL AST (13-39) U/L ALT (7-52) U/L Alkaline Phosphatase (34-104) U/L Total Protein (6.4-8.9) g/dL Albumin (3.2-5.2) g/dL Globulin (2-4) g/dL Albumin/Globulin Ratio (1-3) TSH (0.34-5.60) mcIU/mL Urine Color Yellow Urine Appearance Cloudy Urine pH 6.0 (5-9) Ur Specific [place] 1.028 (1.010-1.030) Urine Protein 1+(30 mg/dl) H (Negative) Urine Ketones Trace H (Negative) Urine Blood Negative (Negative) Urine Nitrate Negative (Negative) Urine Bilirubin Negative (Negative) Urine Urobilinogen Negative (Negative) Ur Leukocyte Esterase Negative (Negative) Urine WBC (Auto) 1+(6-10/hpf) H (Absent) Urine RBC (Auto) Absent (Absent) Urine Bacteria Absent (Absent) Hyaline Casts Present H (Absent) Urine Glucose Negative (Negative) Salicylates (<30) mg/dL Urine Opiates Screen (None Detect) Acetaminophen mcg/mL Ur Barbiturates Screen (None Detect) Ur Phencyclidine Scrn (None Detect) Ur Amphetamines Screen (None Detect) U Benzodiazepines Scrn (None Detect) Urine Cocaine Screen (None Detect) U Cannabinoids Screen (None Detect) Serum Alcohol (<10) mg/dL Result Diagrams: 05/05/17 15:23 05/05/17 15:23 Lab Statement: Any lab studies that have been ordered have been reviewed, and results considered in the medical decision making process. Course/Dx - Course Course Of Treatment: Mr. Rubio presented 941 and agitated. He was given IM ativan and thorazine for his and our safety and calmed a bit. He is medically cleared and is awiting [facility]. - Differential Dx/Clinical Impression Provider Diagnosis: Acute psychosis Discharge - Discharge Plan Condition: Stable Disposition: OTHER Discharge Disposition Comment: Change of Shift The documentation as recorded by the Richard jean Nilda accurately reflects the service I personally performed and the decisions made by me, Benji Saavedra MD.
[2017-05-06] MEDS ORDERED: Divalproex ER TAB(*) 500 MG PO ONE ×2 (00:02→00:03)
[2017-05-06] MEDS ORDERED: Haloperidol TAB* 10 MG PO ONE ×2 (00:02→15:24)
[2017-05-06] MEDS ORDERED: OLANzapine TAB* 5 MG PO ONE (00:03)
[2017-05-06] MEDS ORDERED: Zolpidem TAB* 10 MG PO ONE (00:03)
[2017-05-06] MEDS ORDERED: Haloperidol TAB* 5 MG ONE (00:07)
[2017-05-06] MEDS ORDERED: OLANzapine TAB* 5 MG ONE (00:07)
[2017-05-06] MEDS ORDERED: Haloperidol TAB* 5 MG PO ONE ×4 (00:11→12:10)
[2017-05-06] MEDS ORDERED: chlorproMAZINE INJ* 25 MG/ML 2 ML (50 MG) IM ONE (09:07)
[2017-05-06] MEDS ORDERED: LORazepam INJ* 2 MG/ML 1 ML VIAL IM ONE (09:08)
[2017-05-06] MEDS ORDERED: diPHENhydraMINE PO* 25 MG PO ONE ×2 (09:11→15:24)
[2017-05-06] MEDS ORDERED: LORazepam TAB(*) 1 MG PO ONE ×2 (09:11→15:24)
[2017-05-06] MEDS ORDERED: LORazepam TAB(*) 1 MG ONE (09:14)
[2017-05-06] MEDS ORDERED: diPHENhydraMINE PO* 50 MG ONE (09:14)
--- NOTE | 2017-05-06 12:38 | PN ---
ED Flex Patient Progress Note Subjective: This is a 36 year-old M who is pending transfer to another psychiatric facility [facility] secondary to agitation. Pt offers no complaints at this time and is sleeping after being medicated to calm down. Objective: Vitals: Most recent vital signs documented below. General NAD, Alert and oriented x3. Heart: rrr at 72 bpm Lungs: CTA or with rales, rhonchi, wheezing Laboratory: Current laboratory results documented below. Assessment: pending transfer to [facility] Plan: Pending psychiatric transfer. will follow up daily. Vital Signs Temp Pulse Resp BP Pulse Ox 98.8 F 72 14 00/ 96 05/05/17 16:53 05/05/17 16:53 05/05/17 16:53 05/05/17 16:53 05/05/17 16:53 Lab Results - Entire Visit 05/05/17 05/05/17 05/05/17 20:30 20:30 15:23 WBC 8.7 RBC 4.55 Hgb 14.2 Hct 41 L MCV 89 MCH 31 MCHC 35 RDW 14 Plt Count 179 MPV 9 Neut % (Auto) 66.3 Lymph % (Auto) 23.6 L [place] % (Auto) 8.7 Eos % (Auto) 1.0 Baso % (Auto) 0.4 Absolute Neuts (auto) 5.8 Absolute Lymphs (auto) 2.0 Absolute Monos (auto) 0.8 Absolute Eos (auto) 0.1 Absolute Basos (auto) 0 Absolute Nucleated RBC 0.02 Nucleated RBC % 0.2 Sodium Potassium Chloride Carbon Dioxide Anion Gap BUN Creatinine Est GFR ( Amer) Est GFR (Non-Af Amer) BUN/Creatinine Ratio Glucose Calcium Total Bilirubin AST ALT Alkaline Phosphatase Total Protein Albumin Globulin Albumin/Globulin Ratio TSH Urine Color Yellow Urine Appearance Cloudy Urine pH 6.0 Ur Specific [place] 1.028 Urine Protein 1+(30 mg/dl) H Urine Ketones Trace H Urine Blood Negative Urine Nitrate Negative Urine Bilirubin Negative Urine Urobilinogen Negative Ur Leukocyte Esterase Negative Urine WBC (Auto) 1+(6-10/hpf) H Urine RBC (Auto) Absent Urine Bacteria Absent Hyaline Casts Present H Urine Glucose Negative Salicylates Urine Opiates Screen None detected Acetaminophen Ur Barbiturates Screen None detected Ur Phencyclidine Scrn None detected Ur Amphetamines Screen None detected U Benzodiazepines Scrn None detected Urine Cocaine Screen None detected U Cannabinoids Screen None detected Serum Alcohol 05/05/17 15:23 WBC RBC Hgb Hct MCV MCH MCHC RDW Plt Count MPV Neut % (Auto) Lymph % (Auto) [place] % (Auto) Eos % (Auto) Baso % (Auto) Absolute Neuts (auto) Absolute Lymphs (auto) Absolute Monos (auto) Absolute Eos (auto) Absolute Basos (auto) Absolute Nucleated RBC Nucleated RBC % Sodium 139 Potassium 3.2 L Chloride 107 Carbon Dioxide 24 Anion Gap 8 BUN 12 Creatinine 0.63 L Est GFR ( Amer) 183.3 Est GFR (Non-Af Amer) 142.5 BUN/Creatinine Ratio 19.0 Glucose 167 H Calcium 9.6 Total Bilirubin 0.80 AST 21 ALT 30 Alkaline Phosphatase 49 Total Protein 7.2 Albumin 4.3 Globulin 2.9 Albumin/Globulin Ratio 1.5 TSH 2.68 Urine Color Urine Appearance Urine pH Ur Specific [place] Urine Protein Urine Ketones Urine Blood Urine Nitrate Urine Bilirubin Urine Urobilinogen Ur Leukocyte Esterase Urine WBC (Auto) Urine RBC (Auto) Urine Bacteria Hyaline Casts Urine Glucose Salicylates < 2.50 Urine Opiates Screen Acetaminophen < 15 Ur Barbiturates Screen Ur Phencyclidine Scrn Ur Amphetamines Screen U Benzodiazepines Scrn Urine Cocaine Screen U Cannabinoids Screen Serum Alcohol < 10
[2017-05-06 14:45] VITALS: BP 124/76
== END 2017-05-06 16:04 ==
LOC: ED 14:12
DX: F29 Unspecified psychosis not due to a substance or known physiological condition (principal); F17.210 Nicotine dependence, cigarettes, uncomplicated; F20.9 Schizophrenia, unspecified; F31.9 Bipolar disorder, unspecified; E07.9 Disorder of thyroid, unspecified
CPT/HCPCS: 36415; 80053; 80307; 80320; 80329; 81003; 81015; 84443; 85025; 93005; 99285; A9270-GY; G0480; J2060

== ENCOUNTER 2017-06-21 14:56 | Emergency (ER) | payer MEDICARE, MEDICAID ==
[2017-06-21 15:01] VITALS: BP 148/97
[2017-06-21 15:36] LABS: Hematocrit 42 % (42-52); Hemoglobin 14.6 g/dl (14.0-18.0); Mean Corpuscular HGB Conc 35 g/dl (31-36); Mean Corpuscular Hemoglobin 31 pg (27-31); Mean Corpuscular Volume 88 fL (80-94); Mean Platelet Volume 8 um3 (7.4-10.4); Red Blood Count 4.71 10^6/ul (4.0-5.4); Red Cell Distribution Width 13 % (10.5-15); White Blood Count 7.6 10^3/ul (3.5-10.8)
[2017-06-21 15:47] LABS: ALT 14 U/L (7-52); AST 12 U/L (13-39); Albumin 4.5 g/dL (3.2-5.2); Alkaline Phosphatase 31 U/L (34-104); Anion Gap 9 mmol/L (2-11); Blood Urea Nitrogen 9 mg/dL (6-24); CO2 Carbon Dioxide 24 mmol/L (22-32); Calcium 9.6 mg/dL (8.6-10.3); Chloride 108 mmol/L (101-111); EGFR African American 223.8 (>60); Globulin 2.5 g/dL (2-4); Glucose 115 mg/dL (70-100); Potassium 3.5 mmol/L (3.5-5.0); Sodium 141 mmol/L (133-145)
[2017-06-21 16:01] LABS: Acetaminophen < 15 mcg/mL; Alcohol < 10 mg/dL (<10); Salicylate < 2.50 mg/dL (<30)
[2017-06-21 16:17] LABS: TSH (Thyroid Stimulating Horm) 4.33 mcIU/mL (0.34-5.60)
--- NOTE | 2017-06-22 16:03 | ED ---
Adiel Garcia Thomas, scribed for Benji Saavedra MD on 06/21/17 at 1537 . Psychiatric Complaint - HPI Summary HPI Summary: This patient is a 36 year old M presenting to [facility] with delusions. He says that he is the son of God. He requests admission to [facility] for unspecific reasons. Level 5 caveat: HPI unobtainable due to delusional state. - History Of Current Complaint Chief Complaint: EDMentalHealth Time Seen by Provider: 06/21/17 15:02 Hx Obtained From: Patient Aggravating Factor(s): Nothing Alleviating Factor(s): Nothing - Allergies/Home Medications Allergies/Adverse Reactions: Allergies Allergy/AdvReac Type Severity Reaction Status Date / Time No Known Allergies Allergy Verified 01/04/17 13:21 PMH/Surg Hx/FS Hx/Imm Hx Previously Healthy: No - Level 5 caveat: PMHX unobtainable due to delusional state. Endocrine/Hematology History: Reports: Hx Diabetes, Hx Thyroid Disease Sensory History: Reports: Hx Contacts or Glasses Denies: Hx Hearing Aid Opthamlomology History: Reports: Hx Contacts or Glasses Psychiatric History: Reports: Hx Inpatient Treatment, Hx Community Mental Health Tx, Hx Schizophrenia, Hx Bipolar Disorder, Hx of Violent Episodes Against Others Denies: Hx Eating Disorder - Surgical History Surgery Procedure, Year, and Place: patient reports history of gall bladder surgery and a corneal transplant - Immunization History Date of Tetanus Vaccine: unknown Date of Influenza Vaccine: unknown Infectious Disease History: No Infectious Disease History: Denies: Traveled Outside the [place] in Last 30 Days - Family History Known Family History: Positive: Hypertension, Diabetes, Other - father-- schizophrenia. Brothers--mood disorder. Mother-- depression - Social History Alcohol Use: None Hx Substance Use: No Substance Use Type: Reports: None Substance Use Comment - Amount & Last Used: unk Hx Tobacco Use: Yes Smoking Status (MU): Current Every Day Smoker Type: Cigarettes Amount Used/How Often: 7-9 cigarettes a day Length of Time of Smoking/Using Tobacco: can't recall Have You Smoked in the Last Year: Yes - Pt states he smoke last yesterday Review of Systems - ROS Summary Review of Systems Summary: Level 5 caveat: ROS unobtainable due to delusional state. Negative: Fever Psychological: Other - Delusions All Other Systems Reviewed And Are Negative: No Physical Exam - Summary Physical Exam Summary: Appearance: The patient is well-nourished in no acute distress and in no acute pain. Skin: The skin is warm and dry and skin color reflects adequate perfusion. HEENT: The head is normocephalic and atraumatic. The pupils are equal and reactive. The conjunctivae are clear and without drainage. Nares are patent and without drainage. Mouth reveals moist mucous membranes and the throat is without erythema and exudate. The external ears are intact. The ear canals are patent and without drainage. The tympanic membranes are intact. Neck: the neck is supple with full range of motion and non-tender. There are no carotid bruits. There is no neck vein distension. Respiratory: Chest is non-tender. Lungs are clear to auscultation and breath sounds are symmetrical and equal. Cardiovascular: Heart is regular rate and rhythm. There is no murmur or rub auscultated. There is no peripheral edema and pulses are symmetrical and equal. Abdomen: The abdomen is soft and non-tender. There are normal bowel sounds heard in all four quadrants and there is no organomegaly palpated. Musculoskeletal: There is no back tenderness noted. Extremities are non-tender with full range of motion. There is good capillary refill. There is no peripheral edema or calf tenderness elicited. Neurological: Patient is alert and oriented to person, place and time. The patient has symmetrical motor strength in all four extremities. Cranial nerves are grossly intact. Deep tendon reflexes are symmetrical and equal in all four extremities. Psychiatric: The patient has delusional thinking. Level 5 caveat: PHYSICAL EXAM limited due to delusional state. Triage Information Reviewed: Yes Vital Signs On Initial Exam: Initial Vitals Temp Pulse Resp BP Pulse Ox 98.4 F 100 16 148/97 99 06/21/17 14:59 06/21/17 14:59 06/21/17 14:59 06/21/17 14:59 06/21/17 14:59 Vital Signs Reviewed: Yes Diagnostics - Vital Signs Vital Signs Temp Pulse Resp BP Pulse Ox 06/21/17 14:59 98.4 F 100 16 148/97 99 - Laboratory Lab Results: Lab Results 06/21/17 06/21/17 Range/Units 15:15 15:15 WBC 7.6 (3.5-10.8) 10^3/ul RBC 4.71 (4.0-5.4) 10^6/ul Hgb 14.6 (14.0-18.0) g/dl Hct 42 (42-52) % MCV 88 (80-94) fL MCH 31 (27-31) pg MCHC 35 (31-36) g/dl RDW 13 (10.5-15) % Plt Count 202 (150-450) 10^3/ul MPV 8 (7.4-10.4) um3 Neut % (Auto) 58.1 (38-83) % Lymph % (Auto) 29.8 (25-47) % [place] % (Auto) 10.8 H (1-9) % Eos % (Auto) 0.9 (0-6) % Baso % (Auto) 0.4 (0-2) % Absolute Neuts (auto) 4.4 (1.5-7.7) 10^3/ul Absolute Lymphs (auto) 2.3 (1.0-4.8) 10^3/ul Absolute Monos (auto) 0.8 (0-0.8) 10^3/ul Absolute Eos (auto) 0.1 (0-0.6) 10^3/ul Absolute Basos (auto) 0 (0-0.2) 10^3/ul Absolute Nucleated RBC 0.02 10^3/ul Nucleated RBC % 0.2 Sodium 141 (133-145) mmol/L Potassium 3.5 (3.5-5.0) mmol/L Chloride 108 (101-111) mmol/L Carbon Dioxide 24 (22-32) mmol/L Anion Gap 9 (2-11) mmol/L BUN 9 (6-24) mg/dL Creatinine 0.53 L (0.67-1.17) mg/dL Est GFR ( Amer) 223.8 (>60) Est GFR (Non-Af Amer) 174.0 (>60) BUN/Creatinine Ratio 17.0 (8-20) Glucose 115 H (70-100) mg/dL Calcium 9.6 (8.6-10.3) mg/dL Total Bilirubin 0.60 (0.2-1.0) mg/dL AST 12 L (13-39) U/L ALT 14 (7-52) U/L Alkaline Phosphatase 31 L (34-104) U/L Total Protein 7.0 (6.4-8.9) g/dL Albumin 4.5 (3.2-5.2) g/dL Globulin 2.5 (2-4) g/dL Albumin/Globulin Ratio 1.8 (1-3) TSH 4.33 (0.34-5.60) mcIU/mL Salicylates < 2.50 (<30) mg/dL Acetaminophen < 15 mcg/mL Serum Alcohol < 10 (<10) mg/dL Result Diagrams: 06/21/17 15:15 06/21/17 15:15 Lab Statement: Any lab studies that have been ordered have been reviewed, and results considered in the medical decision making process. Course/Dx - Course Course Of Treatment: Mr. Rubio came in requesting to be transferred to [facility]. He was medically cleared and had a MHE. They felt that he did not need hospitalization at this time and he was D/C'd. - Differential Dx/Clinical Impression Provider Diagnosis: Chronic psychosis Discharge - Discharge Plan Condition: Stable Disposition: HOME Patient Education Materials: Anxiety (ED) Referrals: No Primary Care Phys,NOPCP [Medical Doctor] - The documentation as recorded by the Adiel jean Thomas accurately reflects the service I personally performed and the decisions made by me, Benji Saavedra MD.
== END 2017-06-21 18:39 | disposition home or self-care (01) ==
LOC: ED 14:56
DX: F29 Unspecified psychosis not due to a substance or known physiological condition (principal); F17.210 Nicotine dependence, cigarettes, uncomplicated
CPT/HCPCS: 36415; 80053; 80320; 80329; 84443; 85025; 99283; G0480

== ENCOUNTER 2017-06-25 11:51 | Emergency (ER) | payer MEDICARE, MEDICAID ==
[2017-06-25 12:18] VITALS: BP 100/64
[2017-06-25 13:08] LABS: Hematocrit 43 % (42-52); Hemoglobin 14.6 g/dl (14.0-18.0); Mean Corpuscular HGB Conc 34 g/dl (31-36); Mean Corpuscular Hemoglobin 30 pg (27-31); Mean Corpuscular Volume 89 fL (80-94); Mean Platelet Volume 8 um3 (7.4-10.4); Red Blood Count 4.81 10^6/ul (4.0-5.4); Red Cell Distribution Width 14 % (10.5-15); White Blood Count 9.3 10^3/ul (3.5-10.8)
[2017-06-25 13:23] LABS: ALT 12 U/L (7-52); AST 12 U/L (13-39); Albumin 4.5 g/dL (3.2-5.2); Alkaline Phosphatase 38 U/L (34-104); Anion Gap 7 mmol/L (2-11); BUN/Creatinine Ratio 23.2 (8-20); Blood Urea Nitrogen 13 mg/dL (6-24); CO2 Carbon Dioxide 24 mmol/L (22-32); Calcium 10.2 mg/dL (8.6-10.3); Chloride 106 mmol/L (101-111); EGFR Non-African American 163.3 (>60); Glucose 116 mg/dL (70-100); Potassium 3.8 mmol/L (3.5-5.0); Sodium 137 mmol/L (133-145); Total Protein 7.5 g/dL (6.4-8.9)
[2017-06-25 13:48] LABS: Acetaminophen < 15 mcg/mL; Alcohol < 10 mg/dL (<10); Salicylate < 2.50 mg/dL (<30)
[2017-06-25 14:03] LABS: TSH (Thyroid Stimulating Horm) 2.73 mcIU/mL (0.34-5.60)
[2017-06-25 15:06] LABS: Urine Bacteria Absent (Absent); Urine Bilirubin Negative (Negative); Urine Glucose Negative (Negative); Urine Nitrite Negative (Negative)
[2017-06-25 15:20] LABS: Benzodiazepine Urine Screen None Detected (None Detect)
[2017-06-25] MEDS ORDERED: Haloperidol TAB* 10 MG PO ONE (16:37)
[2017-06-25] MEDS ORDERED: Divalproex ER TAB(*) 500 MG PO ONE (16:37)
[2017-06-25] MEDS ORDERED: OLANzapine TAB*ODT* 10 MG TAB PO ONE (16:37)
--- NOTE | 2017-06-25 17:04 | ED ---
Rossy Garcia Gabriel, scribed for Ana Lilia Crenshaw MD on 06/25/17 at 1229 . Psychiatric Complaint - HPI Summary HPI Summary: This patient is a 36 year old M CAPRI presenting to [facility] with a chief complaint of a dark entity following him since two weeks prior. He says this entity is trying to enter his head and kill him but fridatrevorforeign Donaldo is protecting him. He says the entity sits with him at his apartment and is waiting for its chance to enter his head, so he is fearful to return to his apartment. He also states that since the entity has been around he has recently been on an unspecified mission. - History Of Current Complaint Chief Complaint: EDMentalHealth Time Seen by Provider: 06/25/17 11:59 Hx Obtained From: Patient Onset/Duration: Lasting Weeks - 2, Still Present Timing: Intermittent Episode Lasting - only sees creature on occasion Alleviating Factor(s): Nothing Associated Signs And Symptoms: Positive: Hallucinating - Allergies/Home Medications Allergies/Adverse Reactions: Allergies Allergy/AdvReac Type Severity Reaction Status Date / Time No Known Allergies Allergy Verified 01/04/17 13:21 PMH/Surg Hx/FS Hx/Imm Hx Previously Healthy: No Endocrine/Hematology History: Reports: Hx Diabetes, Hx Thyroid Disease Sensory History: Reports: Hx Contacts or Glasses Denies: Hx Hearing Aid Opthamlomology History: Reports: Hx Contacts or Glasses Psychiatric History: Reports: Hx Inpatient Treatment, Hx Community Mental Health Tx, Hx Schizophrenia, Hx Bipolar Disorder, Hx of Violent Episodes Against Others Denies: Hx Eating Disorder - Surgical History Surgery Procedure, Year, and Place: patient reports history of gall bladder surgery and a corneal transplant - Immunization History Date of Tetanus Vaccine: unknown Date of Influenza Vaccine: unknown Infectious Disease History: No Infectious Disease History: Denies: Traveled Outside the [place] in Last 30 Days - Family History Known Family History: Positive: Hypertension, Diabetes, Other - father-- schizophrenia. Brothers--mood disorder. Mother-- depression - Social History Lives: Alone Alcohol Use: None Hx Substance Use: No Substance Use Type: Reports: None Substance Use Comment - Amount & Last Used: unk Hx Tobacco Use: Yes Smoking Status (MU): Current Every Day Smoker Type: Cigarettes Amount Used/How Often: 7-9 cigarettes a day Length of Time of Smoking/Using Tobacco: can't recall Have You Smoked in the Last Year: Yes - Pt states he smoke last yesterday Review of Systems Negative: Fever Negative: Slurred Speech Psychological: Other - Hallucinations All Other Systems Reviewed And Are Negative: Yes Physical Exam - Summary Physical Exam Summary: General: Well appearing, no pain distress Skin: Warm, Skin Color Reflects Adequate Perfusion, Dry Eyes: EOMI, ARETHA ENT: Pharynx normal, TMs normal Neck: Supple, nontender Respiratory: CTA, breath sounds present, no rhonchi, no wheezes, no rales Cardiovascular: RRR, no murmur, no rub, no gallop Abdomen: Soft, nontender, Non-distended, no guarding, no rebound Bowel: Present Musculoskeletal: AWILDA, No edema Neuro: Sensory/motor intact, A&Ox3, CN intact 2-12 Psych: Affect/mood appropriate Triage Information Reviewed: Yes Vital Signs On Initial Exam: Initial Vitals Temp Pulse Resp BP Pulse Ox 98.6 F 110 16 100/64 100 06/25/17 12:13 06/25/17 12:13 06/25/17 12:13 06/25/17 12:13 06/25/17 12:13 Vital Signs Reviewed: Yes Diagnostics - Vital Signs Vital Signs Temp Pulse Resp BP Pulse Ox 06/25/17 12:13 98.6 F 110 16 100/64 100 - Laboratory Lab Results: Lab Results 06/25/17 06/25/17 06/25/17 Range/Units 13:00 13:00 14:50 WBC 9.3 (3.5-10.8) 10^3/ul RBC 4.81 (4.0-5.4) 10^6/ul Hgb 14.6 (14.0-18.0) g/dl Hct 43 (42-52) % MCV 89 (80-94) fL MCH 30 (27-31) pg MCHC 34 (31-36) g/dl RDW 14 (10.5-15) % Plt Count 241 (150-450) 10^3/ul MPV 8 (7.4-10.4) um3 Neut % (Auto) 54.8 (38-83) % Lymph % (Auto) 33.0 (25-47) % [place] % (Auto) 9.8 H (1-9) % Eos % (Auto) 1.8 (0-6) % Baso % (Auto) 0.6 (0-2) % Absolute Neuts (auto) 5.1 (1.5-7.7) 10^3/ul Absolute Lymphs (auto) 3.1 (1.0-4.8) 10^3/ul Absolute Monos (auto) 0.9 H (0-0.8) 10^3/ul Absolute Eos (auto) 0.2 (0-0.6) 10^3/ul Absolute Basos (auto) 0.1 (0-0.2) 10^3/ul Absolute Nucleated RBC 0.01 10^3/ul Nucleated RBC % 0.1 Sodium 137 (133-145) mmol/L Potassium 3.8 (3.5-5.0) mmol/L Chloride 106 (101-111) mmol/L Carbon Dioxide 24 (22-32) mmol/L Anion Gap 7 (2-11) mmol/L BUN 13 (6-24) mg/dL Creatinine 0.56 L (0.67-1.17) mg/dL Est GFR ( Amer) 210.0 (>60) Est GFR (Non-Af Amer) 163.3 (>60) BUN/Creatinine Ratio 23.2 H (8-20) Glucose 116 H (70-100) mg/dL Calcium 10.2 (8.6-10.3) mg/dL Total Bilirubin 0.40 (0.2-1.0) mg/dL AST 12 L (13-39) U/L ALT 12 (7-52) U/L Alkaline Phosphatase 38 (34-104) U/L Total Protein 7.5 (6.4-8.9) g/dL Albumin 4.5 (3.2-5.2) g/dL Globulin 3.0 (2-4) g/dL Albumin/Globulin Ratio 1.5 (1-3) TSH 2.73 (0.34-5.60) mcIU/mL Urine Color Urine Appearance Urine pH (5-9) Ur Specific [place] (1.010-1.030) Urine Protein (Negative) Urine Ketones (Negative) Urine Blood (Negative) Urine Nitrate (Negative) Urine Bilirubin (Negative) Urine Urobilinogen (Negative) Ur Leukocyte Esterase (Negative) Urine WBC (Auto) (Absent) Urine RBC (Auto) (Absent) Ur Squamous Epith Cells (Absent) Urine Bacteria (Absent) Urine Glucose (Negative) Salicylates < 2.50 (<30) mg/dL Urine Opiates Screen None detected (None Detect) Acetaminophen < 15 mcg/mL Ur Barbiturates Screen None detected (None Detect) Ur Phencyclidine Scrn None detected (None Detect) Ur Amphetamines Screen None detected (None Detect) U Benzodiazepines Scrn None detected (None Detect) Urine Cocaine Screen None detected (None Detect) U Cannabinoids Screen None detected (None Detect) Serum Alcohol < 10 (<10) mg/dL 06/25/17 Range/Units 14:50 WBC (3.5-10.8) 10^3/ul RBC (4.0-5.4) 10^6/ul Hgb (14.0-18.0) g/dl Hct (42-52) % MCV (80-94) fL MCH (27-31) pg MCHC (31-36) g/dl RDW (10.5-15) % Plt Count (150-450) 10^3/ul MPV (7.4-10.4) um3 Neut % (Auto) (38-83) % Lymph % (Auto) (25-47) % [place] % (Auto) (1-9) % Eos % (Auto) (0-6) % Baso % (Auto) (0-2) % Absolute Neuts (auto) (1.5-7.7) 10^3/ul Absolute Lymphs (auto) (1.0-4.8) 10^3/ul Absolute Monos (auto) (0-0.8) 10^3/ul Absolute Eos (auto) (0-0.6) 10^3/ul Absolute Basos (auto) (0-0.2) 10^3/ul Absolute Nucleated RBC 10^3/ul Nucleated RBC % Sodium (133-145) mmol/L Potassium (3.5-5.0) mmol/L Chloride (101-111) mmol/L Carbon Dioxide (22-32) mmol/L Anion Gap (2-11) mmol/L BUN (6-24) mg/dL Creatinine (0.67-1.17) mg/dL Est GFR ( Amer) (>60) Est GFR (Non-Af Amer) (>60) BUN/Creatinine Ratio (8-20) Glucose (70-100) mg/dL Calcium (8.6-10.3) mg/dL Total Bilirubin (0.2-1.0) mg/dL AST (13-39) U/L ALT (7-52) U/L Alkaline Phosphatase (34-104) U/L Total Protein (6.4-8.9) g/dL Albumin (3.2-5.2) g/dL Globulin (2-4) g/dL Albumin/Globulin Ratio (1-3) TSH (0.34-5.60) mcIU/mL Urine Color Yellow Urine Appearance Cloudy Urine pH 5.0 (5-9) Ur Specific [place] 1.032 H (1.010-1.030) Urine Protein 1+(30 mg/dl) H (Negative) Urine Ketones Trace H (Negative) Urine Blood Negative (Negative) Urine Nitrate Negative (Negative) Urine Bilirubin Negative (Negative) Urine Urobilinogen Negative (Negative) Ur Leukocyte Esterase Negative (Negative) Urine WBC (Auto) Trace(0-5/hpf) (Absent) Urine RBC (Auto) 2+(6-10/hpf) H (Absent) Ur Squamous Epith Cells Present H (Absent) Urine Bacteria Absent (Absent) Urine Glucose Negative (Negative) Salicylates (<30) mg/dL Urine Opiates Screen (None Detect) Acetaminophen mcg/mL Ur Barbiturates Screen (None Detect) Ur Phencyclidine Scrn (None Detect) Ur Amphetamines Screen (None Detect) U Benzodiazepines Scrn (None Detect) Urine Cocaine Screen (None Detect) U Cannabinoids Screen (None Detect) Serum Alcohol (<10) mg/dL Result Diagrams: 06/25/17 13:00 06/25/17 13:00 Lab Statement: Any lab studies that have been ordered have been reviewed, and results considered in the medical decision making process. Course/Dx - Course Course Of Treatment: pt became upset after having to wait so long, his meds were given to him and he was ok leaving - Differential Dx/Clinical Impression Provider Diagnosis: Chronic psychosis Discharge - Discharge Plan Condition: Stable Disposition: HOME Referrals: Redd Schuster MD [Primary Care Provider] - The documentation as recorded by the Rossy jean Gabriel accurately reflects the service I personally performed and the decisions made by me, Ana Lilia Crenshaw MD.
== END 2017-06-25 17:04 | disposition left against medical advice (07) ==
LOC: ED 11:51
DX: F29 Unspecified psychosis not due to a substance or known physiological condition (principal); R44.3 Hallucinations, unspecified; F17.210 Nicotine dependence, cigarettes, uncomplicated
CPT/HCPCS: 36415; 80053; 80307; 80320; 80329; 81003; 81015; 84443; 85025; 99282; A9270-GY; G0480

== ENCOUNTER 2017-07-01 08:14 | Emergency (ER) | payer MEDICARE, MEDICAID ==
[2017-07-01 09:33] VITALS: BP 135/79
[2017-07-01 09:40] LABS: Hematocrit 42 % (42-52); Hemoglobin 14.4 g/dl (14.0-18.0); Mean Corpuscular HGB Conc 34 g/dl (31-36); Mean Corpuscular Hemoglobin 31 pg (27-31); Mean Corpuscular Volume 89 fL (80-94); Mean Platelet Volume 9 um3 (7.4-10.4); Red Blood Count 4.67 10^6/ul (4.0-5.4); Red Cell Distribution Width 14 % (10.5-15); White Blood Count 8.2 10^3/ul (3.5-10.8)
[2017-07-01 09:52] LABS: ALT 9 U/L (7-52); Albumin 4.1 g/dL (3.2-5.2); Alkaline Phosphatase 29 U/L (34-104); BUN/Creatinine Ratio 21.4 (8-20); Blood Urea Nitrogen 12 mg/dL (6-24); CO2 Carbon Dioxide 27 mmol/L (22-32); Calcium 9.3 mg/dL (8.6-10.3); Chloride 105 mmol/L (101-111); EGFR Non-African American 163.3 (>60); Globulin 2.4 g/dL (2-4); Glucose 95 mg/dL (70-100); Sodium 139 mmol/L (133-145); Total Protein 6.5 g/dL (6.4-8.9)
[2017-07-01 09:56] LABS: Urine Bilirubin Negative (Negative); Urine Glucose Negative (Negative); Urine Nitrite Negative (Negative)
[2017-07-01 09:58] LABS: Benzodiazepine Urine Screen None Detected (None Detect)
[2017-07-01 10:06] LABS: Acetaminophen < 15 mcg/mL; Alcohol < 10 mg/dL (<10); Salicylate < 2.50 mg/dL (<30)
[2017-07-01 10:47] LABS: AST 9 U/L (13-39); Anion Gap 7 mmol/L (2-11); Potassium 3.9 mmol/L (3.5-5.0)
--- NOTE | 2017-07-04 13:25 | ED ---
Adiel Garcia Thomas, scribed for Rakesh Peck MD on 07/01/17 at 0838 . Psychiatric Complaint - HPI Summary HPI Summary: The pt is a 36 y/o M with a Hx of schizophrenia who says I come here seeking help. I have decided I am not leaving this hospital. He is on Haldol, Levothyroxine, Zyprexa, metformin, and another unspecified medication. Pt denies SI and HI. - History Of Current Complaint Hx Obtained From: Patient Onset/Duration: Still Present Timing: Constant Severity Currently: Moderate Aggravating Factor(s): Other - Unknown Alleviating Factor(s): Other - Unknown Related History: Positive For: Prior Psychiatric Issues Has Suicidal: Denies: Thoughts Has Homicidal: Denies: Thoughts - Allergies/Home Medications Allergies/Adverse Reactions: Allergies Allergy/AdvReac Type Severity Reaction Status Date / Time No Known Allergies Allergy Verified 01/04/17 13:21 Home Medications: Home Medications Cholecalciferol [Vitamin D] 1,000 unit PO DAILY 07/01/17 [History Confirmed ] Haloperidol CONC. DARIO (NF) [Haloperidol CONC. SOLUTION (NF)] 240 mg PO MONTHLY 07/01/17 [History Confirmed 07/01/17] OLANzapine TAB* [Zyprexa 10 MG TAB*] 20 mg PO DAILY 07/01/17 [History Confirmed 07/01/17] Propranolol HCl [Propranolol HCl ER] 60 mg PO DAILY 07/01/17 [History Confirmed 07/01/17] prednisoLONE 1% OPHTH.SUSP* [Pred Forte 1%*] 1 drop OPHTHALMIC DAILY 07/01/17 [ History Confirmed 07/01/17] PMH/Surg Hx/FS Hx/Imm Hx Previously Healthy: No Endocrine/Hematology History: Reports: Hx Diabetes, Hx Thyroid Disease Sensory History: Reports: Hx Contacts or Glasses Denies: Hx Hearing Aid Opthamlomology History: Reports: Hx Contacts or Glasses Psychiatric History: Reports: Hx Inpatient Treatment, Hx Community Mental Health Tx, Hx Schizophrenia, Hx Bipolar Disorder, Hx of Violent Episodes Against Others Denies: Hx Eating Disorder - Surgical History Surgery Procedure, Year, and Place: patient reports history of gall bladder surgery and a corneal transplant - Immunization History Date of Tetanus Vaccine: unknown Date of Influenza Vaccine: unknown - Family History Known Family History: Positive: Hypertension, Diabetes, Other - father-- schizophrenia. Brothers--mood disorder. Mother-- depression - Social History Alcohol Use: None Hx Substance Use: No Substance Use Type: Reports: None Substance Use Comment - Amount & Last Used: unk Hx Tobacco Use: Yes Smoking Status (MU): Current Every Day Smoker Type: Cigarettes Amount Used/How Often: 7-9 cigarettes a day Length of Time of Smoking/Using Tobacco: can't recall Have You Smoked in the Last Year: Yes - Pt states he smoke last yesterday Review of Systems Negative: Other - pain Psychological: Other - "I come here seeking help" Negative: Other - SI, HI All Other Systems Reviewed And Are Negative: Yes Physical Exam - Summary Physical Exam Summary: VITAL SIGNS: Reviewed. GENERAL: Patient is a well-developed and nourished male who is lying comfortable in the stretcher. Patient is not in any acute respiratory distress. HEAD AND FACE: No signs of trauma. No ecchymosis, hematomas or skull depressions. No sinus tenderness. EYES: PERRLA, EOMI x 2, No injected conjunctiva, no nystagmus. EARS: Hearing grossly intact. Ear canals and tympanic membranes are within normal limits. MOUTH: Oropharynx within normal limits. NECK: Supple, trachea is midline, no adenopathy, no JVD, no carotid bruit, no c- spine tenderness, neck with full ROM. CHEST: Symmetric, no tenderness at palpation LUNGS: Clear to auscultation bilaterally. No wheezing or crackles. CVS: Regular rate and rhythm, S1 and S2 present, no murmurs or gallops appreciated. ABDOMEN: Soft, non-tender. No signs of distention. No rebound no guarding, and no masses palpated. Bowel sounds are normal. EXTREMITIES: FROM in all major joints, no edema, no cyanosis or clubbing. NEURO: Alert and oriented x 3. No acute neurological deficits. Speech is normal and follows commands. SKIN: Dry and warm PSYCH: Depressed, quiet, and denies any suicidal thoughts or plan. No homicidal thoughts or plan. No signs of psychosis or pressure speech. No tangential speech. Triage Information Reviewed: Yes Vital Signs Reviewed: Yes Diagnostics - Laboratory Result Diagrams: 07/01/17 09:10 07/01/17 09:10 Lab Statement: Any lab studies that have been ordered have been reviewed, and results considered in the medical decision making process. Course/Dx - Course Assessment/Plan: The pt is a 36 y/o M with a Hx of schizophrenia who says I come here seeking help. I have decided I am not leaving this hospital. He is on Haldol, Levothyroxine, Zyprexa, metformin, and another unspecified medication. Pt denies SI and HI. The patient was medically cleared. The mental health gis coordinator discussed the case with Dr. Valiente, and he recommends transfer. I discussed the case with Dr. Navarro, who is in the [facility], and he accepts the patient for transfer. - Differential Dx/Clinical Impression Provider Diagnosis: Behavioral disturbances Discharge - Discharge Plan Condition: Stable Disposition: OTHER Discharge Disposition Comment: Transfer to [facility], accepted by Dr. Navarro. Referrals: Redd Schuster MD [Primary Care Provider] - The documentation as recorded by the Adiel jean Thomas accurately reflects the service I personally performed and the decisions made by me, Rakesh Peck MD.
== END 2017-07-01 19:29 ==
LOC: ED 08:14
DX: F91.9 Conduct disorder, unspecified (principal)
CPT/HCPCS: 36415; 80053; 80164; 80307; 80320; 80329; 81003; 84443; 85025; 93005; 99284; G0480

== ENCOUNTER 2018-06-07 13:41 | Inpatient (IN) | payer MEDICARE, MEDICAID ==
[2018-06-07] MEDS ORDERED: Nicotine Inhaler* 10 MG AMP INH PRN (13:50)
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
[2018-06-07 14:44] LABS: ABS Basophils 0.1 10^3/ul (0-0.2); ABS Eosinophils 0.1 10^3/ul (0-0.6); ABS Lymphocytes 2.1 10^3/ul (1.0-4.8); ABS Monocytes 0.7 10^3/ul (0-0.8); ABS Neutrophils 4.3 10^3/ul (1.5-7.7); ABS Nucleated RBC 0 10^3/ul; Eosinophil % 1.3 % (0-6); Hematocrit 39 % (42-52); Hemoglobin 13.4 g/dl (14.0-18.0); Lymphocyte % 28.7 % (25-47); Mean Corpuscular HGB Conc 35 g/dl (31-36); Mean Corpuscular Hemoglobin 30 pg (27-31); Mean Corpuscular Volume 87 fL (80-94); Mean Platelet Volume 8.2 fL (7.4-10.4); Nucleated Red Blood Cells % 0.1; Platelet Count 186 10^3/ul (150-450); Red Blood Count 4.47 10^6/ul (4.00-5.40); Red Cell Distribution Width 13 % (10.5-15); White Blood Count 7.2 10^3/ul (3.5-10.8)
[2018-06-07 15:00] LABS: EGFR Non-African American 152.9 (>60)
[2018-06-07] MEDS ORDERED: CloZAPine TAB* 100 MG TAB PO ONE (18:48)
[2018-06-07] MEDS ORDERED: metFORMIN* 500 MG TAB PO ONE (18:50)
[2018-06-07] MEDS ORDERED: Benztropine TAB* 1 MG PO ONE (18:50)
[2018-06-07] MEDS ORDERED: Senna TAB PO ONE (18:50)
[2018-06-07] MEDS ORDERED: Terazosin CAP* 1 MG PO ONE (18:50)
[2018-06-07] MEDS ORDERED: Docusate CAP* 100 MG PO ONE (18:50)
[2018-06-07] MEDS ORDERED: Cholecalciferol TAB* 1000 UNITS PO ONE (18:50)
[2018-06-07] MEDS ORDERED: Divalproex ER TAB(*) 500 MG PO ONE (18:53)
[2018-06-07] MEDS ORDERED: Desmopressin TAB (NF) 0.2 MG TAB PO ONE (19:00)
[2018-06-07] MEDS ORDERED: Desmopressin TAB (NF) 0.1 MG TAB PO ONE (20:00)
--- NOTE | 2018-06-08 06:47 | ED ---
Progress - Progress Note Progress Note: The pt is a 37 y.o male patient presenting to the [facility]. The pt is a sign out from Dr. Varghese pending disposition and MHE. Course/Dx - Course Course Of Treatment: The pt will be signed out to Dr. Zamora, still pending MHE and transfer disposition. The dx will be Schizoaffective disorder. - Diagnoses Provider Diagnoses: Schizoaffective disorder Discharge - Sign-Out/Discharge Documenting (check all that apply): Sign-Out Patient, Receiving Sign-Out Signing out patient TO: Benji Zamora Receiving patient FROM: Lm Varghese - Discharge Plan Condition: Stable Disposition: PSYCHIATRIC FACILITY-OTHER Referrals: Redd Schuster MD [Primary Care Provider] - - Attestation Statements Document Initiated by Scribe: Yes Documenting Scribe: Baljinder Maldonado Provider For Whom Scribe is Documenting (Include Credential): Dr. Jessica Gil Scribe Attestation: Baljinder Garcia, scribed for Dr. Jessica Gil on 06/08/18 at 0647.
--- NOTE | 2018-06-08 07:12 | ED ---
Progress - Progress Note Progress Note: 06/07/2018 The pt is a 37 y.o male patient presenting to the [facility]. The pt is a sign out from Dr. Varghese pending disposition and MHE. 06/08/2018 07:00 hrs- Receiving pt sign out from Dr. Jeffery MD due to pending MHE and dispo. Dr. Valiente evaluated the pt in the [facility] The pt will be admitted to [facility] with a final dx of schizophrenia - Consult/PCP Time Called: 15:20 Re-Evaluation - Re-Evaluation First Eval Re-Evaluation Time: 14:30 Change: Unchanged Comment: Pt is medically cleared for a MHE. Course/Dx - Diagnoses Provider Diagnoses: Schizoaffective disorder Discharge - Sign-Out/Discharge Documenting (check all that apply): Patient Departure - Admit , Sign-Out Patient Receiving patient FROM: Jessica Gil - Discharge Plan Condition: Stable Disposition: ADMITTED TO [facility] Referrals: Redd Schuster MD [Primary Care Provider] - - Attestation Statements Document Initiated by Scribe: Yes Documenting Scribe: Demi Landa Provider For Whom Scribe is Documenting (Include Credential): Dr. Benji Zamora MD Scribe Attestation: Demi Garcia scribed for Dr. Benji Zamora MD on 06/08/18 at 1234.
[2018-06-08] MEDS ORDERED: Al Hydrox/Mg Hydrox/Simet LIQ* 30 ML UDC PO PRN (11:02)
[2018-06-08] MEDS ORDERED: Nicotine GUM* 2 MG PO PRN (11:02)
[2018-06-08] MEDS ORDERED: Acetaminophen TAB* 325 MG PO PRN (11:02)
--- NOTE | 2018-06-08 11:10 | PN ---
ED Flex Patient Progress Note Date of Service: 06/08/18 Subjective: ED day #1 for this 37 y.o. AA male with a history of schizophrenia, receiving ACT services in the community, who arrives with symptoms of paranoia and inability to care for himself. Objective: middle aged AA male, large; dishevelled; paranoid with bizarre thought content; denies SI Assessment: Schizophrenia Plan: Admit to [facility] and resume outpatient medications. Vital Signs Temp Pulse Resp BP Pulse Ox 97.9 F 98 16 122/79 94 06/07/18 22:48 06/08/18 04:18 06/08/18 04:18 06/08/18 04:18 06/08/18 04:18 Lab Results - Entire Visit 06/07/18 06/07/18 06/07/18 14:37 14:37 14:37 WBC 7.2 RBC 4.47 Hgb 13.4 L Hct 39 L MCV 87 MCH 30 MCHC 35 RDW 13 Plt Count 186 MPV 8.2 Neut % (Auto) 59.3 Lymph % (Auto) 28.7 [place] % (Auto) 9.8 H Eos % (Auto) 1.3 Baso % (Auto) 0.9 Absolute Neuts (auto) 4.3 Absolute Lymphs (auto) 2.1 Absolute Monos (auto) 0.7 Absolute Eos (auto) 0.1 Absolute Basos (auto) 0.1 Absolute Nucleated RBC 0 Nucleated RBC % 0.1 Sodium 140 Potassium 3.8 Chloride 107 Carbon Dioxide 26 Anion Gap 7 BUN 8 Creatinine 0.59 L Est GFR ( Amer) 185.0 Est GFR (Non-Af Amer) 152.9 BUN/Creatinine Ratio 13.6 Glucose 189 H Calcium 9.4 Total Bilirubin 0.30 AST 14 ALT 13 Alkaline Phosphatase 48 Total Protein 6.4 Albumin 4.0 Globulin 2.4 Albumin/Globulin Ratio 1.7 TSH 4.37 Salicylates < 2.50 Acetaminophen < 15 Valproic Acid 21.0 L Serum Alcohol < 10
[2018-06-08] MEDS ORDERED: Levothyroxine TAB* 75 MCG TAB PO ONE (19:00)
[2018-06-08] MEDS: Divalproex ER TAB(*) 500 MG PO SCH (22:26)
[2018-06-08] MEDS: CloZAPine TAB* 100 MG TAB PO SCH (22:27)
[2018-06-08] MEDS: Cholecalciferol TAB* 1000 UNITS PO SCH (22:27)
[2018-06-08] MEDS: Terazosin CAP* 1 MG PO SCH (22:27)
[2018-06-08] MEDS: CMCS:Desmopressin TAB (NF) 0.1 MG TAB PO SCH (22:30)
[2018-06-08] MEDS: prednisoLONE 1% OPHTH.SUSP* 5 ML OPHTH.SUSP BOTH EYES SCH ×2 (22:31→22:36)
[2018-06-08] MEDS: Docusate CAP* 100 MG PO SCH (22:36)
[2018-06-08] MEDS: Senna TAB PO SCH (22:36)
[2018-06-08] MEDS: Benztropine TAB* 1 MG PO SCH (22:38)
[2018-06-08] MEDS: metFORMIN* 500 MG TAB PO SCH (22:38)
[2018-06-09] MEDS: Senna TAB PO SCH ×2 (11:24→22:34)
[2018-06-09] MEDS: metFORMIN* 500 MG TAB PO SCH ×2 (11:24→22:35)
[2018-06-09] MEDS: CloZAPine TAB* 100 MG TAB PO SCH ×2 (11:24→18:24)
[2018-06-09] MEDS: Benztropine TAB* 1 MG PO SCH ×2 (11:24→22:31)
[2018-06-09] MEDS: Docusate CAP* 100 MG PO SCH ×2 (11:24→22:34)
[2018-06-09] MEDS: Cholecalciferol TAB* 1000 UNITS PO SCH ×2 (11:24→22:31)
[2018-06-09] MEDS: Levothyroxine TAB* 75 MCG TAB PO SCH (11:24)
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
[2018-06-09] MEDS: CMCS:Desmopressin TAB (NF) 0.1 MG TAB PO SCH (22:32)
[2018-06-09] MEDS: Divalproex ER TAB(*) 500 MG PO SCH (22:32)
[2018-06-09] MEDS: Terazosin CAP* 1 MG PO SCH (22:35)
[2018-06-09] MEDS: prednisoLONE 1% OPHTH.SUSP* 5 ML OPHTH.SUSP BOTH EYES SCH (22:38)
[2018-06-10 08:16] LABS: ABS Basophils 0.1 10^3/ul (0-0.2); ABS Eosinophils 0.1 10^3/ul (0-0.6); ABS Lymphocytes 2.5 10^3/ul (1.0-4.8); ABS Monocytes 0.5 10^3/ul (0-0.8); ABS Nucleated RBC 0 10^3/ul; Hematocrit 41 % (42-52); Hemoglobin 14.1 g/dl (14.0-18.0); Lymphocyte % 41.2 % (25-47); Mean Corpuscular HGB Conc 35 g/dl (31-36); Mean Corpuscular Hemoglobin 30 pg (27-31); Mean Corpuscular Volume 87 fL (80-94); Mean Platelet Volume 8.6 fL (7.4-10.4); Nucleated Red Blood Cells % 0.1; Platelet Count 198 10^3/ul (150-450); Red Blood Count 4.69 10^6/ul (4.00-5.40); Red Cell Distribution Width 13 % (10.5-15); White Blood Count 6.2 10^3/ul (3.5-10.8)
[2018-06-10 09:05] VITALS: BP 132/86
[2018-06-10] MEDS: metFORMIN* 500 MG TAB PO SCH (10:38)
[2018-06-10] MEDS: Benztropine TAB* 1 MG PO SCH (10:38)
[2018-06-10] MEDS: Cholecalciferol TAB* 1000 UNITS PO SCH (10:38)
[2018-06-10] MEDS: Levothyroxine TAB* 75 MCG TAB PO SCH (10:38)
[2018-06-10] MEDS: Docusate CAP* 100 MG PO SCH (10:38)
[2018-06-10] MEDS: Senna TAB PO SCH (10:38)
[2018-06-10] MEDS: CloZAPine TAB* 100 MG TAB PO SCH (10:38)
--- NOTE | 2018-06-11 01:32 | DS ---
DISCHARGE SUMMARY: DATE OF ADMISSION: 06/08/18 DATE OF DISCHARGE: 06/10/18 DISCHARGE DIAGNOSES: [place] I: Schizophrenia. [place] II: Borderline personality disorder. CONDITION AT THE TIME OF DISCHARGE: Stable. The patient is calm, cooperative. He denies any psychotic experiences. He denies suicidal or homicidal behaviors and he has been safe on all checks. Luis has been cooperative and calm throughout his brief hospital stay and he is appropriately requesting discharge. He has extensive services in the community including assertive community treatment with the [facility]. They will be seeing him on the afternoon of discharge helping him pack his medications for the week and providing intensive treatment in a much less restrictive setting. MENTAL STATUS EXAMINATION AT THE TIME OF DISCHARGE: Luis is an overweight male with a scraggly lew, who is wearing a knit auguste winter cap. He is calm, cooperative, drawing some sketches as I approached. Speech has a normal rate, tone, and volume. He makes good eye contact. Mood appears to be euthymic with a full affect. Thought process is linear and goal directed. Thought content is significant for his desire to be discharged from the hospital. He denies suicidal or homicidal ideations. He denies auditory or visual hallucinations. There is no evidence of overt psychotic thinking. Insight and judgment appear to be fair given his willingness to follow up with the ACT team. Cognitively, he is awake and alert with what would appear to be an average intellect. LABORATORY DATA: Metabolic testing was performed on 06/10/18 and demonstrated an elevated hemoglobin A1c of 5.9%. Triglycerides 276, cholesterol 218, LDL cholesterol 123, HDL cholesterol 40.3. DISCHARGE INSTRUCTIONS: To the patient are as follows: A. Medications. The patient takes: 1. Cogentin 1 mg p.o. b.i.d. 2. Vitamin D 1000 units b.i.d. 3. Clozapine 100 mg in the morning and 300 mg in the evening. 4. Desmopressin 0.2 mg p.o. q.h.s. 5. Depakote ER 2000 mg p.o. q.h.s. 6. Colace 100 mg twice daily. 7. Synthroid 75 mcg p.o. daily. 8. Metformin 500 mg p.o. b.i.d. 9. He takes paliperidone Sustenna 117 mg IM q. monthly, next due on 06/25/18. 10. Prednisone eye drops, 1 drop both eyes q.h.s. 11. Senna 1 tab p.o. b.i.d. 12. Terazosin 2 mg p.o. q.h.s. Please note that the patient is on 2 separate antipsychotics. The justification for this is that his clozapine is augmented with an once monthly injection of paliperidone. B. Diet: Diabetic diet. C. Activities: As tolerated. The patient is a smoker; however, he is declining the continuation of nicotine replacement therapies. He is offered the [facility] Smokers' Quitline, which is a toll free number of 5-698-352- 0594 in the event that he changes his mind about tobacco usage. There are no laboratory or diagnostic studies pending at the time of discharge. D. Followup care: The patient will be seen this afternoon at 3 o'clock p.m. by the [facility]. E. Substance abuse followup is nonapplicable. HOSPITAL COURSE: Part A: Reason for admission: The patient is a 37-year-old single male with a history of schizophrenia and borderline personality disorder with numerous prior psychiatric hospitalizations and a remote history of violence and suicidal behavior, who presented to the emergency room with symptoms of paranoid delusions, hyperreligiosity, and requests for hospitalization. The patient was adamant during his arrival that [facility] this [facility] after a prolonged inpatient stay. A stressor was that his father who was somewhat estranged recently . The patient endorsed feelings that other people are trying to kill him. We were able to contact the [facility] Community Treatment Team, who states that they have been following him closely in the community and that he had actually been doing well up until the of his father. He has been adherent with medications and meeting the ACT team on a regular basis. Part B: Psychiatric treatment rendered: The patient was admitted to the adult behavioral health unit where he was placed on q.15-minute checks for his own safety. He seemed to be immediately comforted by his arrival on the unit engaged with staff and peers, went to therapeutic programming. He took his medications as prescribed and had no behavioral outburst on the unit. The patient felt as though he benefitted from this brief hospitalization and stopped [facility], instead he started endorsing thoughts of being well enough for discharge. He denied suicidal or homicidal ideations throughout this experience and is appropriately requesting discharge at this time. He has followup later this afternoon with the ACT Team, who is happy to provide further services in the community. [id number]/[facility] #: [id number] [place]
[2018-06-25] MEDS ORDERED: Paliperidone SUSTENNA* 117 MG/0.75 ML IM SCH (12:00)
== END 2018-06-10 11:50 | disposition home or self-care (01) | DRG 885 ==
LOC: ED 13:41 → BSU 06-08 16:02
PROVIDERS: ADMIT Psychiatry & Neurology Psychiatry; ATTEND Psychiatry & Neurology Psychiatry
DX: F25.0 Schizoaffective disorder, bipolar type (principal); F60.3 Borderline personality disorder; F22 Delusional disorders; Z62.819 Personal history of unspecified abuse in childhood; E66.9 Obesity, unspecified; E03.9 Hypothyroidism, unspecified; E11.9 Type 2 diabetes mellitus without complications; F17.210 Nicotine dependence, cigarettes, uncomplicated; Z63.4 Disappearance and death of family member; F31.9 Bipolar disorder, unspecified; I10 Essential (primary) hypertension; Z94.7 Corneal transplant status; Z83.3 Family history of diabetes mellitus; Z81.8 Family history of other mental and behavioral disorders; Z82.49 Family history of ischemic heart disease and other diseases of the circulatory system; Z23 Encounter for immunization; Z79.84 Long term (current) use of oral hypoglycemic drugs; Z68.36 Body mass index [BMI] 36.0-36.9, adult
CPT/HCPCS: 36415; 80053; 80061; 80159; 80164; 80320; 80329; 83036; 84443; 85025; 90686; 93005; 99222; 99238; 99284; A9270-GY; G0480

== ENCOUNTER 2018-10-07 16:54 | Inpatient (IN) | payer MEDICARE, MEDICAID ==
--- NOTE | 2018-10-07 17:16 | ED ---
HPI Diabetic - HPI Summary HPI Summary: Patient is a 37 y/o male who presents to the ED c/o polydipsia. Several days ago his sx began and include polyuria and polydipsia. He is on Metformin and states that he doesnt check his BG. Patient denies any current fever, cough, or congestion. He denies any current pain. He denies any recent infections. Patient only recalls one prior episode of high blood glucose and states he had the same symptoms. PMHx DM, HTN, thyroid disease. Patient is hypertensive and tachycardic in the room. - History Of Current Complaint Time Seen by Provider: 10/07/18 17:08 Hx Obtained From: Patient Onset/Duration: Gradual Onset, Lasting Days - 2-3, Still Present Timing: Constant Aggravating: Other - Not checking BG Alleviating: Nothing Associated Signs & Symptoms: Polydipsia - Allergies/Home Medications Allergies/Adverse Reactions: Allergies Allergy/AdvReac Type Severity Reaction Status Date / Time No Known Allergies Allergy Verified 10/07/18 17:11 PMH/Surg Hx/FS Hx/Imm Hx Endocrine/Hematology History: Reports: Hx Diabetes, Hx Thyroid Disease Cardiovascular History: Reports: Hx Hypertension Sensory History: Reports: Hx Contacts or Glasses Denies: Hx Hearing Aid Opthamlomology History: Reports: Hx Contacts or Glasses Psychiatric History: Reports: Hx Inpatient Treatment, Hx Community Mental Health Tx, Hx Schizophrenia, Hx Bipolar Disorder, Hx of Violent Episodes Against Others Denies: Hx Eating Disorder - Surgical History Surgery Procedure, Year, and Place: patient reports history of gall bladder surgery and a corneal transplant - Immunization History Date of Tetanus Vaccine: unknown Date of Influenza Vaccine: unknown Infectious Disease History: No Infectious Disease History: Denies: Traveled Outside the [place] in Last 30 Days - Family History Known Family History: Positive: Hypertension, Diabetes, Other - father-- schizophrenia. Brothers--mood disorder. Mother-- depression - Social History Alcohol Use: None Hx Substance Use: No Substance Use Type: Reports: None Substance Use Comment - Amount & Last Used: unk Hx Tobacco Use: Yes Smoking Status (MU): Current Every Day Smoker Type: Cigarettes Amount Used/How Often: 7-9 cigarettes a day Length of Time of Smoking/Using Tobacco: can't recall Have You Smoked in the Last Year: Yes - Pt states he smoke last yesterday 9/11/ 16 Review of Systems Positive: Other - polydipsia. Negative: Fever Negative: Other - congestion Negative: Cough Positive: other - polyuria All Other Systems Reviewed And Are Negative: Yes Physical Exam - Summary Physical Exam Summary: Appearance: Well appearing, no pain distress Skin: warm, dry, reflects adequate perfusion Head/face: normal Eyes: EOMI, ARETHA ENT: mucous membranes moist Neck: supple, non-tender Respiratory: CTA, breath sounds present Cardiovascular: tachycardic but regular rhythm, pulses symmetrical Abdomen: non-tender, soft Bowel Sounds: present Musculoskeletal: normal, strength/ROM intact Neuro: normal, sensory motor intact, A&Ox3 Triage Information Reviewed: Yes Vital Signs On Initial Exam: Initial Vitals Temp Pulse Resp BP Pulse Ox 99.6 F 118 16 148/113 96 10/07/18 17:09 10/07/18 17:09 10/07/18 17:09 10/07/18 17:09 10/07/18 17:09 Vital Signs Reviewed: Yes Diagnostics - Vital Signs Vital Signs Temp Pulse Resp BP Pulse Ox 10/07/18 17:09 99.6 F 118 16 148/113 96 - Laboratory Result Diagrams: 10/07/18 17:45 10/07/18 17:45 Lab Statement: Any lab studies that have been ordered have been reviewed, and results considered in the medical decision making process. - EKG 17:25 Cardiac Rate: Tachycardia - 112 bpm EKG Rhythm: Sinus Tachycardia ST Segment: Normal Summary of EKG Findings: Nl axis, nl intervals Re-Evaluation - Re-Evaluation First Eval Re-Evaluation Time: 18:13 Change: Unchanged Comment: Pt states he is willing to be admitted. Diabetic Course/Dx - Course Course Of Treatment: Nurse's notes reviewed. Patient is elu-[id number] diabetic on only oral medications. He has no glucometer or testing materials at home. He is a high-risk psychiatric patient is cared for by the act team. He has blood sugars over 500 and polyuria, polydipsia as well as tachycardia. There is no anion gap acidosis. Given his comorbidities it was elected that after 2 L of fluid and insulin that he be admitted for further diabetic management. Hospitalist team agrees and will admit. - Diagnoses Differential Dx: Diabetic Ketoacidosis, Hyperglycemia, Hyperosmolar State Provider Diagnoses: Hyperglycemia due to type 2 diabetes mellitus, Diabetic hyperosmolar non- ketotic state - Physician Notifications Discussed Care Of Patient With: Merrill Rodriguez Time Discussed With Above Provider: 18:17 Instructed by Provider To: Admit As Inpatient - Critical Care Time Critical Care Time: 30-74 min - Critical care time is exclusive of separately billable procedures Discharge - Sign-Out/Discharge Documenting (check all that apply): Patient Departure - Admit Patient Received Moderate/Deep Sedation with Procedure: No - Discharge Plan Condition: Fair Disposition: ADMITTED TO [facility] Referrals: Redd Schuster MD [Primary Care Provider] - - Billing Disposition and Condition Condition: FAIR Disposition: Admitted to [facility] - Attestation Statements Document Initiated by Scribe: Yes Documenting Scribe: Naomy Valdivia Provider For Whom Yanet is Documenting (Include Credential): Lm Varghese MD Scribe Attestation: Naomy Garcia, scribed for Lm Varghese MD on 10/07/18 at 1824. Scribe Documentation Reviewed: Yes Provider Attestation: The documentation as recorded by the Naomy jean accurately reflects the service I personally performed and the decisions made by , Lm Varghese MD Status of Scribe Document: Viewed
[2018-10-07] MEDS ORDERED: NS 0.9% 1000 ML** 1,000 ML IV ONE ×2 (17:18)
[2018-10-07] MEDS ORDERED: Insulin REGULAR(*) 1 UNITS UNIT IV PUSH ONE ×2 (17:18→19:11)
[2018-10-07 18:04] LABS: ABS Basophils 0.1 10^3/ul (0-0.2); ABS Eosinophils 0.1 10^3/ul (0-0.6); ABS Lymphocytes 2.1 10^3/ul (1.0-4.8); ABS Monocytes 0.8 10^3/ul (0-0.8); ABS Neutrophils 3.3 10^3/ul (1.5-7.7); ABS Nucleated RBC 0 10^3/ul; Eosinophil % 2.2 %; Hematocrit 42 % (42-52); Hemoglobin 14.5 g/dl (14.0-18.0); Lymphocyte % 33.4 %; Mean Corpuscular HGB Conc 34 g/dl (31-36); Mean Corpuscular Hemoglobin 30 pg (27-31); Mean Corpuscular Volume 87 fL (80-94); Mean Platelet Volume 8.6 fL (7.4-10.4); Nucleated Red Blood Cells % 0.1; Platelet Count 224 10^3/ul (150-450); Red Cell Distribution Width 13 % (10.5-15); White Blood Count 6.4 10^3/ul (3.5-10.8)
[2018-10-07 18:10] LABS: Albumin 4.4 g/dL (3.2-5.2); Albumin/Globulin Ratio 1.6 (1-3); BUN/Creatinine Ratio 12.3 (8-20); Calcium 10.1 mg/dL (8.6-10.3); EGFR African American 144.7 (>60); EGFR Non-African American 119.6 (>60); Globulin 2.7 g/dL (2-4); Total Bilirubin 0.5 mg/dL (0.2-1.0); Total Protein 7.1 g/dL (6.4-8.9)
[2018-10-07] MEDS ORDERED: Acetaminophen TAB* 325 MG PO PRN (18:53)
[2018-10-07] MEDS ORDERED: Ondansetron INJ* 2 MG/ML VIAL IV PRN (18:53)
[2018-10-07] MEDS ORDERED: Dextrose 50% Syringe 50 ML* 25 GM/50 ML SYRINGE IV PUSH PRN (18:56)
[2018-10-07] MEDS ORDERED: hydrALAZINE IV* 20 MG/ML VIAL IV SLOW PU PRN (18:58)
[2018-10-07] MEDS ORDERED: NS 0.9% 1000 ML** 1,000 ML IV SCH (19:00)
[2018-10-07 19:20] LABS: Urine Appearance Clear; Urine Bilirubin Negative (Negative); Urine Blood Negative (Negative); Urine Color Straw; Urine Glucose 3+(>=500 mg/dL) (Negative); Urine Ketones Trace (Negative); Urine Nitrite Negative (Negative); Urine Protein Negative (Negative); Urine Specific Gravity 1.032 (1.010-1.030); Urine Urobilinogen Negative (Negative)
[2018-10-07] MEDS: amLODIPine TAB* 5 MG PO SCH (20:49)
[2018-10-07] MEDS: Cholecalciferol TAB* 1000 UNITS PO SCH (20:49)
[2018-10-07] MEDS: Benztropine TAB* 1 MG PO SCH (20:49)
[2018-10-07] MEDS: Docusate CAP* 100 MG PO SCH (20:49)
[2018-10-07] MEDS: NS 0.9% 1000 ML** 1,000 ML IV SCH (20:51)
[2018-10-07] MEDS ORDERED: metFORMIN* 500 MG TAB PO SCH (21:00)
[2018-10-07] MEDS ORDERED: Desmopressin TAB (NF) 0.2 MG TAB PO SCH (21:00)
[2018-10-07] MEDS: Insulin LISPRO* 1 UNITS UNIT SUBCUT SCH (21:14)
[2018-10-07] MEDS: metFORMIN* 1,000 MG TAB PO SCH (22:01)
[2018-10-07] MEDS: Terazosin CAP* 1 MG PO SCH (22:02)
--- NOTE | 2018-10-07 22:09 | HP ---
CC: Dr. Redd Schuster * HISTORY AND PHYSICAL: DATE OF ADMISSION: 10/07/18 PRIMARY CARE PROVIDER: Dr. Redd Schuster ATTENDING PHYSICIAN: Dr. Merrill Frias * (dictated by Sujey Pa NP) CHIEF COMPLAINT: Polydipsia and polyuria. HISTORY OF PRESENT ILLNESS: Mr. Rubio is a 37-year-old male with past medical history of diabetes mellitus type 2, hypertension, hypothyroidism, and schizophrenia with a recent admission to our behavioral services unit, who presents to the emergency room today with approximately 1 week of polydipsia and polyuria. The patient is a poor historian and not able to provide a comprehensive history, but notes that approximately 2 weeks ago, he did experience 1 day where he was quite diaphoretic though this resolved spontaneously and he is otherwise within his normal state of health. He does not check his blood sugars at home, but was concerned because of the polydipsia and polyuria. He reports that he has experienced this before in the past when he was first diagnosed with diabetes, so he felt as though it was likely an issue with his diabetes. He denies any other recent illness. No fevers. There is no chest pain, no cough, no shortness of breath, no nausea or vomiting , no diarrhea, no myalgias, no rashes. He reports that he has been a diabetic for approximately 15 years and has taken metformin during that time. He did take insulin when he was first diagnosed for approximately 4 months though was taken off of that and has been on metformin only since that time. He does not known his most recent A1c. He reports that he does take his medications as prescribed. In the emergency room, the patient was noted to have a glucose of 520. He did have a blood gas and was not acidotic. He had a urinalysis which showed trace ketones and 3+ glucose. He was noted to be tachycardic and hypertensive. Because of the concern for hyperglycemia, the hospitalist service was asked to evaluate for admission. PAST MEDICAL HISTORY: 1. Diabetes mellitus type 2. 2. Hypertension. 3. Hypothyroidism. 4. Schizophrenia. PAST SURGICAL HISTORY: None. HOME MEDICATIONS: 1. Cogentin 1 mg p.o. b.i.d. 2. Cholecalciferol 1000 units p.o. b.i.d. 3. Clonazepam 300 mg p.o. at bedtime. 4. Clonazepam 100 mg p.o. daily. 5. Desmopressin 0.2 mg p.o. at bedtime. 6. Depakote 2000 mg p.o. at bedtime. 7. Docusate 100 mg p.o. b.i.d. 8. Levothyroxine 75 mcg p.o. daily. 9. Metformin 500 mg p.o. b.i.d. 10. Invega 117 mg IM monthly. 11. Prednisolone 1% 1 drop ophthalmic daily. 12. Sennoside 8.6 mg p.o. b.i.d., p.r.n. in constipation. 13. Terazosin 2 mg p.o. at bedtime. ALLERGIES: No known drug allergies. FAMILY HISTORY: The patient's mother is alive and well. His father , he believes, from a myocardial infarction. His maternal grandmother has diabetes and hypothyroidism. SOCIAL HISTORY: The patient reports smoking half a pack per day. He is not sure how long he has been smoking for. He did recently try to quit, but has restarted within the last few days. He denies any alcohol or recreational drug use. He is currently disabled and lives alone in an apartment. The patient's mother, Tere Conley, will be his surrogate decision maker in the event he is unable to take his own decisions. REVIEW OF SYSTEMS: An 11-point review of systems was performed and all the pertinent positive and negative findings are in the HPI. All other systems are negative. PHYSICAL EXAMINATION GENERAL: Mr. Rubio is a well-developed, well-nourished, overweight - [place] male lying in bed, in no acute distress. He appears his stated age. VITAL SIGNS: Temp 99.6, heart rate 110, respiratory rate 16, oxygen saturation 95% on room air, and blood pressure 156/109. HEENT: Head is atraumatic, normocephalic. Visual harris are grossly intact. Pupils equal, round, and reactive to light and accommodation. Extraocular movements intact. Oral mucosa membranes moist and without lesions. NECK: Full range of motion. Thyroid is not palpable. Trachea midline. There does appear to be 1 lymph node in the submandibular area that is enlarged though the patient reports that has been present for as long as he can remember. RESPIRATORY: Symmetrical chest expansion. No chest wall deformities. Lungs clear to auscultation throughout. No rhonchi, wheezes, or rubs. CARDIOVASCULAR: Regular rate, tachycardic. S1, S2 present. No murmurs, rubs, or gallops. No JVD. EXTREMITIES: Skin warm and smooth bilaterally. No edema, no clubbing, or cyanosis. Pedal pulses 1+ bilaterally. ABDOMEN: Soft, nontender to palpation. Bowel sounds normoactive throughout. NEUROLOGIC: Awake, alert, and oriented x4. Flat affect. Cranial nerves II through XII grossly intact. Moves all extremities. SKIN: Grossly intact without lesions. DIAGNOSTIC STUDIES/LAB DATA: WBC 6.4, RBC 4.9, hemoglobin 14.5, hematocrit 42 , platelets 224. Sodium 133, potassium 4, chloride 97, carbon dioxide 27, BUN 9 , creatinine 0.73, glucose 520, troponin 0.00. Urinalysis remarkable for trace ketones and 3+ glucose. Venous blood gas shows pH of 7.45. EKG showed sinus tachycardia with a rate of 112, QTc 432. There is minimal diffuse ST elevation which is present in previous EKGs. No ischemic changes. ASSESSMENT AND PLAN: Mr. Rubio is a 37-year-old male with past medical history of type 2 diabetes, hypertension, hypothyroidism, and schizophrenia with a recent admission to our behavioral services unit, who presents today with complaints of polydipsia and polyuria and was found to be significantly hyperglycemic. The patient will be admitted observation for: 1. Hyperosmolar hyperglycemic nonketotic state. The patient does not know his most recent A1C, though according to our records, he had an A1c of 5.9 in June 2018. A1C today is 9.6%. The patient does not check his blood sugars at home and has only been taking metformin. He did receive 13 units of Regular Insulin IV in the emergency room and glucose was still greater than 400. I did order an additional 13 units. I have placed him fingersticks a.c. h.s. and sliding scale Lispro. I will increase his metformin as he is on low-dose at this point. It remains unclear if he will ultimately need Lantus going forward , though I think this is certainly a possibility. He did receive 2 L of IV fluids in the emergency room. I have ordered another 3 L and his fluid status will need to be reassessed at that point. 2. Hypertension. The patient is hypertensive in the emergency room with diastolic blood pressures greater than 100. The only medication he is currently taking for blood pressure is terazosin. I will place him on amlodipine daily starting tonight. I have also ordered hydralazine for systolic blood pressure greater than 160 or diastolic blood pressure greater than 100. He is asymptomatic at this point, but we will continue to monitor him. 3. Schizophrenia. The patient's schizophrenia appears to be well controlled at this point. I will continue his Cogentin, clozapine, and Depakote. 4. Hypothyroidism. Continue levothyroxine. 5. The patient does take desmopressin daily and it is not clear why the patient is not able to provide me with any information as to why he would be on this medication and does not have a good understanding of any of his medication. It looks like this medication is being prescribed by his primary, so I will continue it at this point and we will need to request records tomorrow to determine why he is taking this. 6. FEN. Fluids will be as above. He does not require any electrolyte repletion at this time. I have ordered a consistent carb diet. 7. Code status. The patient will be a full code. 8. DVT prophylaxis. According to the DVT risk assessment, the patient scores a 1, putting him at low risk. We will use ambulation only. TIME SPENT: Approximately 60 minutes were spent on this admission, greater than half of that time spent [id number] with the patient obtaining my history , performing my physical exam, and reviewing my plan of care. This case has been reviewed with my attending, Dr. Frias, who is in agreement with the plan of care. SUJEY PA, DEAN [employer] BOYS [id number]/CPS #: [id number] FLORES
[2018-10-07] MEDS: CMCS: Desmopressin TAB (NF) 0.1 MG TAB PO SCH (22:26)
[2018-10-07] MEDS: Divalproex ER TAB(*) 500 MG PO SCH (22:27)
[2018-10-08] MEDS: NS 0.9% 1000 ML** 1,000 ML IV SCH ×3 (00:56→12:08)
[2018-10-08] MEDS: Levothyroxine TAB* 75 MCG TAB PO SCH (05:31)
[2018-10-08 06:05] LABS: ABS Basophils 0 10^3/ul (0-0.2); ABS Eosinophils 0.2 10^3/ul (0-0.6); ABS Lymphocytes 2.1 10^3/ul (1.0-4.8); ABS Monocytes 0.6 10^3/ul (0-0.8); ABS Neutrophils 3.4 10^3/ul (1.5-7.7); ABS Nucleated RBC 0 10^3/ul; Eosinophil % 2.8 %; Hematocrit 37 % (42-52); Hemoglobin 12.8 g/dl (14.0-18.0); Lymphocyte % 33.3 %; Mean Corpuscular HGB Conc 34 g/dl (31-36); Mean Corpuscular Hemoglobin 30 pg (27-31); Mean Corpuscular Volume 86 fL (80-94); Mean Platelet Volume 8.4 fL (7.4-10.4); Nucleated Red Blood Cells % 0.1; Platelet Count 189 10^3/ul (150-450); Red Blood Count 4.32 10^6/ul (4.00-5.40); Red Cell Distribution Width 13 % (10.5-15); White Blood Count 6.4 10^3/ul (3.5-10.8)
[2018-10-08 06:30] LABS: BUN/Creatinine Ratio 12.7 (8-20); Calcium 8.7 mg/dL (8.6-10.3); EGFR African American 200.7 (>60); EGFR Non-African American 165.8 (>60); Potassium 3.9 mmol/L (3.5-5.0)
[2018-10-08] MEDS: metFORMIN* 1,000 MG TAB PO SCH ×2 (08:18→19:43)
[2018-10-08] MEDS: Insulin LISPRO* 1 UNITS UNIT SUBCUT SCH ×4 (08:18→21:23)
[2018-10-08] MEDS: amLODIPine TAB* 5 MG PO SCH (08:19)
[2018-10-08] MEDS: CloZAPine TAB* 100 MG TAB PO SCH (08:19)
[2018-10-08] MEDS: Benztropine TAB* 1 MG PO SCH ×2 (08:19→19:44)
[2018-10-08] MEDS: Docusate CAP* 100 MG PO SCH ×2 (08:19→19:44)
[2018-10-08] MEDS: Cholecalciferol TAB* 1000 UNITS PO SCH ×2 (08:21→19:41)
[2018-10-08] MEDS ORDERED: glyBURIDE TAB* 5 MG PO SCH (09:00)
--- NOTE | 2018-10-08 17:02 | PN ---
Subjective Date of Service: 10/08/18 Interval History: pt is feeling much better, but still urinating a lot. Had not be compliant with DM diet x 1 year Objective Active Medications: Acetaminophen (Tylenol Tab*) 650 mg PO Q4H PRN PRN Reason: FEVER/PAIN Amlodipine Besylate (Norvasc Tab*) 5 mg PO DAILY [facility] Last Admin: 10/08/18 08:19 Dose: 5 mg Benztropine Mesylate (Cogentin Tab*) 1 mg PO BID [facility] Last Admin: 10/08/18 08:19 Dose: 1 mg Cholecalciferol (Vitamin D Tab*) 1,000 units PO BID [facility] Last Admin: 10/08/18 08:21 Dose: 1,000 units Clozapine (Clozapine Tab*) 100 mg PO QAM [facility] Last Admin: 10/08/18 08:19 Dose: 100 mg Clozapine (Clozapine Tab*) 300 mg PO QPM [facility] Last Admin: 10/08/18 16:37 Dose: 300 mg Desmopressin Acetate (Desmopressin Tab (Nf)) 0.2 mg PO BEDTIME [facility] Last Admin: 10/07/18 22:26 Dose: 0.2 mg Dextrose (D50w Syringe 50 Ml*) 12.5 gm IV PUSH .FOR FS < 60 - SS PRN PRN Reason: FS < 60 Divalproex Sodium (Depakote Er Tab(*)) 2,000 mg PO BEDTIME [facility] Last Admin: 10/07/18 22:27 Dose: 2,000 mg Docusate Sodium (Colace Cap*) 100 mg PO BID [facility] Last Admin: 10/08/18 08:19 Dose: 100 mg Glyburide (Diabeta Tab*) 5 mg PO DAILY WITH MEAL [facility] Hydralazine HCl (Apresoline Iv*) 5 mg IV SLOW PU Q6H PRN PRN Reason: BLOOD PRESSURE Sodium Chloride (Ns 0.9% 1000 Ml) 1,000 mls @ 250 mls/hr IV PER RATE [facility] Stop: 10/09/18 23:10 Last Admin: 10/08/18 05:33 Dose: 250 mls/hr Insulin Human Lispro (Humalog*) 0 units SUBCUT ACHS [facility]; Protocol Last Admin: 10/08/18 16:38 Dose: 3 units Levothyroxine Sodium (Synthroid Tab*) 75 mcg PO 0600 [facility] Last Admin: 10/08/18 05:31 Dose: 75 mcg Metformin HCl (Glucophage*) 1,000 mg PO BID [facility] Last Admin: 10/08/18 08:18 Dose: 1,000 mg Ondansetron HCl (Zofran Inj*) 4 mg IV Q4H PRN PRN Reason: NAUSEA/VOMITING Terazosin HCl (Hytrin Cap*) 2 mg PO BEDTIME [facility] Last Admin: 10/07/18 22:02 Dose: 2 mg Vital Signs - 8 hr 10/08/18 10/08/18 11:40 15:09 Temperature 97.9 F 97.7 F Pulse Rate 105 101 Respiratory 14 16 Rate Blood Pressure 135/78 130/87 (mmHg) O2 Sat by Pulse 97 95 Oximetry Oxygen Devices in Use Now: None Appearance: 37 yo m in nAD, AAOx3 Eyes: No Scleral Icterus, PERRLA Ears/Nose/Mouth/Throat: NL Teeth, Lips, Gums, Mucous Membranes Moist Neck: NL Appearance and Movements; NL JVP, Trachea Midline Respiratory: Symmetrical Chest Expansion and Respiratory Effort, Clear to Auscultation Cardiovascular: NL Sounds; No Murmurs; No JVD Abdominal: NL Sounds; No Tenderness; No Distention Lymphatic: No Cervical Adenopathy Extremities: No Edema, No Clubbing, Cyanosis Skin: No Rash or Ulcers, No Nodules or Sclerosis Neurological: Alert and Oriented x 3, NL Muscle Strength and Tone Result Diagrams: 10/08/18 05:44 10/08/18 05:44 Assess/Plan/Problems-Billing Assessment: 37 yo M with h/o schizophrenia , DM, HTN presents with uncontrolled DM - Patient Problems (1) Schizophrenia Comment: controlled, cont clozapine /depakote/cogentin (2) Uncontrolled diabetes mellitus Current Visit: Yes Comment: Hb A1C 9.6 cont increased metformin. IVF stopped. Glyburide started today Pt is aware od diatery noncomplinance, but not interested in DM nutrion consult. He is able to modify his diet, just had not been following recommendations will check TSH (3) HTN (hypertension) Comment: cont with added on Norvasc cont desmopressin (4) DVT prophylaxis Comment: low risk , ambulation Status and Disposition: inpatient
[2018-10-08] MEDS ORDERED: CloZAPine TAB* 100 MG TAB PO SCH (18:00)
[2018-10-08] MEDS: Divalproex ER TAB(*) 500 MG PO SCH (19:41)
[2018-10-08] MEDS: CMCS: Desmopressin TAB (NF) 0.1 MG TAB PO SCH (19:42)
[2018-10-08] MEDS: Terazosin CAP* 1 MG PO SCH (19:43)
[2018-10-09] MEDS: Levothyroxine TAB* 75 MCG TAB PO SCH (06:06)
[2018-10-09 07:33] LABS: BUN/Creatinine Ratio 12.8 (8-20); Calcium 8.8 mg/dL (8.6-10.3); EGFR African American 240.6 (>60); EGFR Non-African American 198.8 (>60); Potassium 3.7 mmol/L (3.5-5.0)
[2018-10-09] MEDS: amLODIPine TAB* 5 MG PO SCH (07:54)
[2018-10-09] MEDS: Docusate CAP* 100 MG PO SCH (07:54)
[2018-10-09] MEDS: CloZAPine TAB* 100 MG TAB PO SCH (07:54)
[2018-10-09] MEDS: metFORMIN* 1,000 MG TAB PO SCH (07:54)
[2018-10-09] MEDS: Insulin LISPRO* 1 UNITS UNIT SUBCUT SCH ×2 (07:55→12:53)
[2018-10-09] MEDS: Cholecalciferol TAB* 1000 UNITS PO SCH (07:55)
[2018-10-09] MEDS: Benztropine TAB* 1 MG PO SCH (07:55)
[2018-10-09 07:57] LABS: TSH (Thyroid Stimulating Horm) 1.47 mcIU/mL (0.34-5.60)
[2018-10-09] MEDS ORDERED: glyBURIDE TAB* 5 MG PO SCH (08:30)
[2018-10-09 13:59] VITALS: BP 143/82
--- NOTE | 2018-10-09 14:38 | DS ---
CC: Dr. Schuster * DISCHARGE SUMMARY: DATE OF ADMISSION: 10/07/18 DATE OF DISCHARGE: 10/09/18 PRIMARY CARE PROVIDER: Dr. Schuster. DISCHARGE DIAGNOSES: 1. Uncontrolled diabetes type 2. 2. Hypertension. SECONDARY DIAGNOSES: 1. History of diabetes type 2. 2. Hypertension. 3. Hypothyroidism. 4. Schizophrenia. MEDICATIONS AT DISCHARGE: Include: 1. Metformin was increased to 1000 mg twice a day. 2. Glyburide 5 mg daily, which is a new medication. 3. The patient also was started on Norvasc 5 mg daily, which is a new medication. The remaining medications are unchanged and include: 1. Cogentin 1 mg b.i.d. 2. Vitamin D3 1000 units b.i.d. 3. Clozapine 100 mg q.a.m. and 300 mg q.p.m. 4. Desmopressin 0.2 mg at bedtime. 5. Colace 100 mg b.i.d. 6. Synthroid 75 mcg daily. 7. Invega 117 mg IM monthly. 8. Prednisolone ophthalmic suspension daily as previously ordered. 9. Terazosin 2 mg at bedtime. LABORATORY DATA AND STUDIES PERFORMED DURING THE HOSPITAL STAY: Included on 03/22, sodium 139, potassium 3.7, chloride 107, carbon dioxide 26, BUN 6, creatinine 0.47. Glucose level today in the morning was 200 and TSH was 1.47. On 10/08/18, white blood cell count of 6.4, hemoglobin of 12.8, hematocrit of 37 , and platelets 199. ABG at admission showed pH of 7.45, pCO2 of 41, pO2 of 68, and bicarb of 28. HOSPITALIZATION COURSE: Luis Rubio is a 37-year-old male who presented to the hospital complaining of polyuria and polydipsia with a sugar level of 520 on presentation. The patient was mildly dehydrated. He stated that he has not been following recommendations for diabetic diet for the past year. His hemoglobin A1c was 9.6. During the patient's hospital stay, his metformin was increased from 500 mg twice a day to 1000 mg twice a day and glyburide was started with good results. By the time of discharge, the patient's sugars had been in the 170 to 200 range. The patient was also recommended to restart his diabetic diet. 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 His TSH was checked and was within normal limits. It was also noted that the patient was mildly hypertensive and amlodipine was started with good results. By the time of discharge, his sugar was 170 and his pressures were in the 130s to 150s range. He is going to be discharged home with recommendation to follow up with his primary care provider in 4 to 7 days. PHYSICAL EXAMINATION: At the time of discharge, blood pressure of 137/94, heart rate of 99 and regular, respiratory rate 16, oxygen saturation 96% on room air, temperature 97.8. General: The patient is a very pleasant 37-year- old male who is in no acute distress. Alert, awake, and oriented x3. HEENT: Head: Atraumatic, normocephalic. Eyes: Pupils are equal, reactive to light and accommodation. Oropharynx is clear. Mucosa moist. Neck: Supple. No JVD. No bruits bilaterally. Cardiovascular: Regular rate and rhythm. No murmur. Respiratory: Clear to auscultation bilaterally. Abdomen: Soft, nontender. Bowel sounds are present in all 4 quadrants. Extremities: There is no edema. Pulses are +2 bilaterally. No clubbing or cyanosis. On neuro evaluation, speech is clear. Cranial nerves II through XII grossly intact. Motor strength is 5/5 bilaterally. Please note that this is a short summary of the patient's hospitalization. Please refer to further medical records for details. TIME SPENT: Approximately 35 minutes was spent on the patient's discharge. [id number]/CPS #: [id number] MTDD
== END 2018-10-09 14:15 | disposition home or self-care (01) | DRG 639 ==
LOC: ED 16:54 → MEDTELE 19:57 → OBSVTOIN 10-08 10:22 → MED 10-09 00:20
PROVIDERS: ADMIT Internal Medicine; ATTEND Internal Medicine
DX: E11.00 Type 2 diabetes mellitus with hyperosmolarity without nonketotic hyperglycemic-hyperosmolar coma (NKHHC) (principal); I10 Essential (primary) hypertension; R00.0 Tachycardia, unspecified; F20.9 Schizophrenia, unspecified; F17.210 Nicotine dependence, cigarettes, uncomplicated; E86.0 Dehydration; E03.9 Hypothyroidism, unspecified; E66.3 Overweight; Z91.11 Patient's noncompliance with dietary regimen; Z82.49 Family history of ischemic heart disease and other diseases of the circulatory system; Z83.3 Family history of diabetes mellitus; Z81.8 Family history of other mental and behavioral disorders; Z83.49 Family history of other endocrine, nutritional and metabolic diseases; Z79.84 Long term (current) use of oral hypoglycemic drugs
CPT/HCPCS: 36415; 80048; 80053; 81003; 82803; 82947; 83036; 84443; 84484; 85025; 93005; 99284; A9270-GY; G0378

== ENCOUNTER 2019-03-01 06:42 | Inpatient (IN) | payer MEDICARE ==
--- NOTE | 2019-03-01 07:09 | ED ---
Psychiatric Complaint - HPI Summary HPI Summary: Pt. is a 38 y.o male who presents to the ER for a MHE. Pt. has a hx of schizophrenia and bipolar d/o. He is on numerous medications and follows with psychiatry. Pt. presents today stating he has had increased anxiety and difficulty sleeping over the last few days. Pt. states his anxiety and fear he is going to be murdered is interrupting his ability perform his daily activities. Pt. denies SI. Sxs are mild in severity. no current modifying factors. - History Of Current Complaint Chief Complaint: EDMentalHealth Time Seen by Provider: 03/01/19 06:52 Hx Obtained From: Patient - Allergies/Home Medications Allergies/Adverse Reactions: Allergies Allergy/AdvReac Type Severity Reaction Status Date / Time No Known Allergies Allergy Verified 03/01/19 06:45 PMH/Surg Hx/FS Hx/Imm Hx Previously Healthy: Yes Endocrine/Hematology History: Reports: Hx Diabetes, Hx Thyroid Disease Cardiovascular History: Reports: Hx Hypertension Sensory History: Reports: Hx Contacts or Glasses Denies: Hx Hearing Aid Opthamlomology History: Reports: Hx Contacts or Glasses Psychiatric History: Reports: Hx Inpatient Treatment, Hx Community Mental Health Tx, Hx Schizophrenia, Hx Bipolar Disorder, Hx of Violent Episodes Against Others Denies: Hx Eating Disorder - Surgical History Surgery Procedure, Year, and Place: patient reports history of gall bladder surgery and a corneal transplant (right eye) - Immunization History Date of Tetanus Vaccine: unknown Date of Influenza Vaccine: unknown Infectious Disease History: No Infectious Disease History: Denies: Traveled Outside the [place] in Last 30 Days - Family History Known Family History: Positive: Hypertension, Diabetes, Other - father-- schizophrenia. Brothers--mood disorder. Mother-- depression - Social History Occupation: Disabled Lives: With Family Alcohol Use: None Hx Substance Use: No Substance Use Type: Reports: None Substance Use Comment - Amount & Last Used: unk Hx Tobacco Use: Yes Smoking Status (MU): Current Every Day Smoker Type: Cigarettes Amount Used/How Often: 7-9 cigarettes a day Length of Time of Smoking/Using Tobacco: can't recall Have You Smoked in the Last Year: Yes - Pt states he smoke last yesterday Review of Systems Positive: Anxious, Other All Other Systems Reviewed And Are Negative: Yes Physical Exam Triage Information Reviewed: Yes Vital Signs On Initial Exam: Initial Vitals Temp Pulse Resp BP Pulse Ox 98.4 F 120 17 146/95 97 03/01/19 06:43 03/01/19 06:43 03/01/19 06:43 03/01/19 06:43 03/01/19 06:43 Vital Signs Reviewed: Yes Appearance: Positive: Well-Appearing - Pt. sitting on bed in NAD. Cooperative. Skin: Positive: Warm, Dry Head/Face: Positive: Normal Head/Face Inspection Eyes: Positive: Normal, EOMI Neck: Positive: Supple Neurological: Positive: Normal, CN Intact II-III Psychiatric: Positive: Anxious Diagnostics - Vital Signs Vital Signs Temp Pulse Resp BP Pulse Ox 03/01/19 06:43 98.4 F 120 17 146/95 97 - Laboratory Lab Statement: Any lab studies that have been ordered have been reviewed, and results considered in the medical decision making process. Course/Dx - Course Course Of Treatment: Pt. evaluated by mental health and will be admitted to the [facility] for further evaluation and treatment. - Differential Dx/Clinical Impression Differential Diagnosis/HQI/PQRI: Positive: Acute Psychosis, Anxiety, Schizophrenia Provider Diagnosis: Anxiety, Paranoia Discharge - Sign-Out/Discharge Documenting (check all that apply): Patient Departure Patient Received Moderate/Deep Sedation with Procedure: No - Discharge Plan Condition: Stable Disposition: PSYCHIATRIC FACILITY-[facility] - Billing Disposition and Condition Condition: STABLE Disposition: Psychiatric Facility [facility]
[2019-03-01] MEDS ORDERED: Acetaminophen TAB* 325 MG PO PRN (11:33)
[2019-03-01] MEDS ORDERED: Al Hydrox/Mg Hydrox/Simet LIQ* 30 ML UDC PO PRN (11:33)
--- NOTE | 2019-03-01 14:03 | ADMNOTE ---
Identification - Identify Employment Status: Disabled Hx Psychiatric Hospitalization: Yes - numerous Prior Psychiatric Diagnosis: schizophrenia Arrived to Hospital Via: Car History - Objective HPI: 38 year old single black male who presents for possible admission due to a five day history of some thoughts of paranoia about store clerks and talking about the devil. Also believed that Orlando Lloyd had been talking to him at some point. His primary issue has been severe insomnia and stress around managing a bedbug issue in his apartment at [address] in [place]. He is on an AOT and is followed by the [facility] team but even was afraid of those clinicians. I called Alison Starr who is director of that team for input. She noted that his serum levels of medication have been consistent. He takes Depakote ER 2000 mg HS, Invega Trinza 410 mg every three months, and clozapine 100/300. He has diabetes which is well controlled at this time. He has had a long history of schizophrenia since his late teens with numerous admissions to community hospitals and to [facility]. He had two recent admissions to [facility] but reportedly has been out of the hospital since June 2018. 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 Past Medical History: Has insulin dependent diabetes which is under control at this time. Obese. Exam Appearance: Obese Hygiene: Normal Grooming: Well Kept Psychomotor Activities: Normal Exhibits Abnormal Movement: No Attitude and Relatedness: Irritable Eye Contact: Fair - Speech Quality: Unpressured Latencies: Normal Quantity: Terse Patient's Decription of Mood: "Irritable" Observed Affect: Tense Affect Consistent with: Dysphoria Patient's Thought Process: Coherent Thought Content: No Passive Wish, No Suicidal Planning, No Homicidal Ideation, No Paranoid Ideation Experiencing Hallucinations: No, Sensorium is Clear Type of Hallucinations: Visual: No, Auditory: No, Command: No Level of Consciousness: Alert Orientation: No Intact, No Orientated to Time, No Orientated to Place, No Orientated to Person Impulse Control: Tenuous Insight and Judgement: Fair - has irritible mood and emotional dyscontrol Impression - Impression Clinical Impression: Patient with long history of schizophrenia who is chronically only in partial remission. He is relapsing to some extent now. It is not clear if he stopped night meds. It is true that lack of sleep has been precipitating psychiatric issues. He has a history of violence when decompensating and has requested admission now. He is on an AOT order. A brief admission to stabilize medications and sleep is indicated at this time. Inpatient DSM-V Dx: F20.0 Merits Inpatient Hospitalization: Yes BSU: Problem List - Patient Problems (1) Schizophrenia Current Visit: No Status: Acute Priority: High Onset Date: Unknown Code( s): F20.9 - SCHIZOPHRENIA, UNSPECIFIED SNOMED Code(s): 31663637 Comment: controlled, cont clozapine /depakote/cogentin Plan - Treatment Plan Treatment Plan: Plan 15 minute checks, medication for insomnia as needed, monitoring of impulsivity, episcopal of sleep cycle, assessment of acute delusions and hallucinations. Will have individual and group psychotherapy. Need for brief admission due to decompensation even under intensive ACT team care as well as past violent acting out when fully decompensating. Continued Medication Management: Different Medication - move clozapine dosing to all HS at 400mg Medications: Current Medications Acetaminophen (Tylenol Tab*) 650 mg PO Q4H PRN PRN Reason: PAIN or TEMP > 101 F Al Hydrox/Mg Hydrox/Simethicone (Maalox Plus*) 30 ml PO Q4H PRN PRN Reason: INDIGESTION Amlodipine Besylate (Norvasc Tab*) 5 mg PO DAILY DI Atropine Sulfate (Atropine 1% (Oral/Sl)*) 2 drop SL BID DI Benztropine Mesylate (Cogentin Tab*) 1 mg PO BID DI Cholecalciferol (Vitamin D Tab*) 1,000 units PO DAILY DI Clozapine (Clozapine Tab*) 400 mg PO BEDTIME DI Desmopressin Acetate (Desmopressin Tab (Nf)) 0.2 mg PO BEDTIME ID Divalproex Sodium (Depakote Er Tab(*)) 2,000 mg PO BEDTIME DI Docusate Sodium (Colace Cap*) 100 mg PO BID DI Glyburide (Diabeta Tab*) 5 mg PO DAILY WITH MEAL DI Levothyroxine Sodium (Synthroid Tab*) 75 mcg PO DAILY@0600 DI Metformin HCl (Glucophage*) 1,000 mg PO BID WITH MEALS DI Multivitamins (Theragran Tab*) 1 tab PO DAILY DI Nicotine Polacrilex (Nicotine Gum*) 2 mg PO Q2H PRN PRN Reason: CRAVINGS Non-Formulary Medication *Invega Trinza* 1 dose IM ONCE ONE Stop: 05/04/19 09:01 Prednisolone Acetate (Pred Forte 1%*) 1 drop BOTH EYES DAILY DI Terazosin HCl (Hytrin Cap*) 2 mg PO BEDTIME DI - Discharge Plan Discharge Plan: [facility]
[2019-03-01] MEDS ORDERED: chlorproMAZINE TAB* 100 MG PO PRN (16:08)
[2019-03-01] MEDS: metFORMIN* 1,000 MG TAB PO SCH (16:43)
[2019-03-01] MEDS: Nicotine* 2MG (FRUIT FLAVOR) GUM PO PRN (16:51)
[2019-03-01] MEDS: Atropine 1% (ORAL/SL)* 15 ML BTL SL SCH (20:21)
[2019-03-01] MEDS: Gabapentin CAP(*) 300 MG PO SCH (20:25)
[2019-03-01] MEDS: Benztropine TAB* 1 MG PO SCH (20:26)
[2019-03-01] MEDS: traZODone TAB* 100 MG PO SCH (20:26)
[2019-03-01] MEDS: CloZAPine TAB* 100 MG TAB PO SCH (20:26)
[2019-03-01] MEDS: Divalproex ER TAB(*) 500 MG PO SCH (20:27)
[2019-03-01] MEDS: CMC:Desmopressin TAB (NF) 0.1 MG TAB PO SCH (20:28)
[2019-03-01] MEDS: Docusate CAP* 100 MG PO SCH (20:30)
[2019-03-01] MEDS: Terazosin CAP* 1 MG PO SCH (20:30)
--- NOTE | 2019-03-02 01:22 | HP ---
PSYCHIATRIC HISTORY AND PHYSICAL: DATE OF ADMISSION: 03/01/19 HISTORY OF PRESENT ILLNESS: The patient is a 38-year-old single black male, brought himself to the hospital for possible admission. He has been having about a 5-day admission of increased paranoia about [employer] talking about him , about the devils somehow talking about him, and believing that Gabino Novak was somehow talking to him. He has chronic schizophrenia over the years, but had been managed on Invega Trinza 410 mg every 3 months, Depakote 2000 mg at night, and clozapine 100 mg in the morning and 300 at night. He more acutely has not been sleeping for several days, which he feels is a cause of some of his problems. He has had problems with bedbugs for some weeks and this is stressful for him. He is involved with the [facility] ACT Team and is on an assisted outpatient court order for treatment and is compliant with treatment according to the ACT Team with somewhat low Depakote levels, but with good clozapine levels consistently. He lives in [address] on his own. 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 PAST PSYCHIATRIC HISTORY: Notable for many psychiatric admissions since his late teens with schizophrenia. He has had numerous admissions to community hospitals and to [facility] including 2 more recent admissions to [facility], but reportedly has been out of the hospital since June 2018. He has some history of becoming violently agitated in the hospital, though this is mostly in the context of breaking things or destroying televisions. He denies drug use history or family psychiatric history. Physical exam was done in the ER and he does not want another from me. MEDICAL REVIEW OF SYSTEMS: Notable for diabetes, for which he is being treated at this time. He takes glyburide. He is obese. He reports as far as part of the medical view having some drooling, but does not really like taking the recommended benztropine tablets, which could help or atropine drops which could help. PSYCHIATRIC REVIEW OF SYSTEMS: Otherwise, he does report insomnia. He denies obsessive thoughts, compulsive rituals, or panic attacks. He denies binge eating. MENTAL STATUS EXAMINATION: He is alert and is oriented x3. He is irritable and minimally cooperative with the exam, though he does answer direct questions in an unhappy way. His affect is constricted and midrange, and mood is irritable. He is somewhat labile. Speech is goal directed, but sparse. Speech is not pressured and he has no psychomotor agitation present. Denies suicidal, homicidal, or violent ideation. There are no abnormal movements present. He is not drooling in the day in the afternoon when I saw him. Short- term and long-term memory are grossly intact and concentration is good. Judgment, insight, and impulse control are fair. Estimated intelligence is average. IMPRESSION: Clinical impression is of a man with baseline of schizophrenia, controlled with polypharmacy including 20 psychotics and a mood stabilizer. He mostly manages to maintain in the community albeit as a disabled man. He is having a mild decompensation now, I think partly due to bedbugs and insomnia and possibly as decompensation. He in the past had come in to the hospital for brief stays for stabilization and I suspect that this will be another one. I did communicate with [facility] Team with Jaclyn Starr about this patient. DSM-V diagnosis is Schizophrenia. TREATMENT PLAN: 1. Admit to the locked unit with 15-minute checks. 2. Move his full clozapine dose to 400 mg at bed to provide some more help with sleeping and decreased sedation since he indicated in the emergency room that he does not like the sedation and at times would skip his morning medications. 3. Provided individual and group psychotherapy. 4. Prescribed Thorazine as needed for agitation. 5. Provided both trazodone 100 mg and gabapentin 600 mg to try tonight to help him sleep and restore his normal sleep cycle. Jaclyn Starr indicated this has been a regular issue for him. PROGNOSIS: Fair to good. ESTIMATED LENGTH OF STAY: 4 days. [id number]/[facility] #: [id number] [facility]
[2019-03-02] MEDS: Levothyroxine TAB* 75 MCG TAB PO SCH (10:03)
[2019-03-02] MEDS: metFORMIN* 1,000 MG TAB PO SCH ×2 (10:03→18:09)
[2019-03-02] MEDS: Vitamin THERAPEUTIC TAB PO SCH (10:04)
[2019-03-02] MEDS: Cholecalciferol TAB* 1000 UNITS PO SCH (10:04)
[2019-03-02] MEDS: Docusate CAP* 100 MG PO SCH ×2 (10:04→20:25)
[2019-03-02] MEDS: amLODIPine TAB* 5 MG PO SCH (10:05)
[2019-03-02] MEDS: Benztropine TAB* 1 MG PO SCH ×2 (10:05→20:17)
[2019-03-02] MEDS: prednisoLONE 1% OPHTH.SUSP* 5 ML OPHTH.SUSP BOTH EYES SCH (10:06)
[2019-03-02] MEDS: glyBURIDE TAB* 5 MG PO SCH (10:10)
[2019-03-02] MEDS: Atropine 1% (ORAL/SL)* 15 ML BTL SL SCH ×2 (10:56→20:25)
--- NOTE | 2019-03-02 14:25 | PN ---
Subjective - Subjective Service Type: 05915 Hosp care 25 min moderate complexity Subjective: Patient reports being able to sleep last night finally and feeling much less anxious. Still worries about people in stores but is much less upset by these worries. Is stabilizing rapidly with less irritibiity. Wants 30 minute checks so that he can play the keyboard in the comfort room. Is in good behavioral control. Objective - General Observations Appearance: Unkempt Appears Stated Age: Yes Stature: Overweight Posture: WNL Eye Contact: Average Behavior/Activity: WNL - Interaction Observations Attitude Towards Examiner: Cooperative Stated Mood: Anxious Affect: Blunted Speech Pattern/Tone: Clear Thought Process: Coherent Perception: WNL Thought Content: Paranoid Hallucination Type: None Delusion Type: Persecution - Still has some delusions but these are in the background and are receding. Not acting on them in the hospital setting. Assessment - Assessment Merits Inpatient Hospitalization: For Stabilization, Consolidate Improvements, For Discharge Planning Inpatient DSM-V Dx: F20.0 Clinical Impression: Patient with long history of schizophrenia who is chronically only in partial remission. He is relapsing to some extent now. It is not clear if he stopped night meds. It is true that lack of sleep has been precipitating psychiatric issues. He has a history of violence when decompensating and has requested admission now. He is on an AOT order. A brief admission to stabilize medications and sleep is indicated at this time. BSU: Problem List - Patient Problems (1) Schizophrenia Current Visit: No Status: Acute Priority: High Onset Date: Unknown Code( s): F20.9 - SCHIZOPHRENIA, UNSPECIFIED SNOMED Code(s): 71019148 Comment: controlled, cont clozapine /depakote/cogentin Plan - Plan Treatment Plan: Plan 15 minute checks, medication for insomnia as needed, monitoring of impulsivity, muslim of sleep cycle, assessment of acute delusions and hallucinations. Will have individual and group psychotherapy. Need for brief admission due to decompensation even under intensive ACT team care as well as past violent acting out when fully decompensating. Continued Medication Management: Continue Outpt Medication Medications: Current Medications Acetaminophen (Tylenol Tab*) 650 mg PO Q4H PRN PRN Reason: PAIN or TEMP > 101 F Al Hydrox/Mg Hydrox/Simethicone (Maalox Plus*) 30 ml PO Q4H PRN PRN Reason: INDIGESTION Amlodipine Besylate (Norvasc Tab*) 5 mg PO DAILY [facility] Last Admin: 03/02/19 10:05 Dose: 5 mg Atropine Sulfate (Atropine 1% (Oral/Sl)*) 2 drop SL BID [facility] Last Admin: 03/02/19 10:56 Dose: Not Given Benztropine Mesylate (Cogentin Tab*) 1 mg PO BID [facility] Last Admin: 03/02/19 10:05 Dose: 1 mg Chlorpromazine HCl (Thorazine Tab*) 100 mg PO Q4HR PRN PRN Reason: AGITATION Cholecalciferol (Vitamin D Tab*) 1,000 units PO DAILY [facility] Last Admin: 03/02/19 10:04 Dose: 1,000 units Clozapine (Clozapine Tab*) 400 mg PO BEDTIME DI Last Admin: 03/01/19 20:26 Dose: 400 mg Desmopressin Acetate (Desmopressin Tab (Nf)) 0.2 mg PO BEDTIME [facility] Last Admin: 03/01/19 20:28 Dose: 0.2 mg Divalproex Sodium (Depakote Er Tab(*)) 2,000 mg PO BEDTIME DI Last Admin: 03/01/19 20:27 Dose: 2,000 mg Docusate Sodium (Colace Cap*) 100 mg PO BID [facility] Last Admin: 03/02/19 10:04 Dose: 100 mg Gabapentin (Neurontin Cap(*)) 600 mg PO BEDTIME DI Last Admin: 03/01/19 20:25 Dose: 600 mg Glyburide (Diabeta Tab*) 5 mg PO DAILY WITH MEAL [facility] Last Admin: 03/02/19 10:10 Dose: 5 mg Levothyroxine Sodium (Synthroid Tab*) 75 mcg PO DAILY@0600 DI Last Admin: 03/02/19 10:03 Dose: 75 mcg Metformin HCl (Glucophage*) 1,000 mg PO BID WITH MEALS DI Last Admin: 03/02/19 10:03 Dose: 1,000 mg Multivitamins (Theragran Tab*) 1 tab PO DAILY [facility] Last Admin: 03/02/19 10:04 Dose: 1 tab Nicotine Polacrilex (Nicotine Gum*) 2 mg PO Q2H PRN PRN Reason: CRAVINGS Last Admin: 03/01/19 16:51 Dose: 2 mg Non-Formulary Medication *Invega Trinza* 1 dose IM ONCE ONE Stop: 05/04/19 09:01 Prednisolone Acetate (Pred Forte 1%*) 1 drop BOTH EYES DAILY DI Last Admin: 03/02/19 10:06 Dose: 1 drop Terazosin HCl (Hytrin Cap*) 2 mg PO BEDTIME DI Last Admin: 03/01/19 20:30 Dose: 2 mg Trazodone HCl (Desyrel Tab*) 100 mg PO BEDTIME DI Last Admin: 03/01/19 20:26 Dose: 100 mg - Discharge Plan Discharge Plan: Outpatient Follow Up Outpatient Program: [facility]
[2019-03-02] MEDS: Divalproex ER TAB(*) 500 MG PO SCH (20:15)
[2019-03-02] MEDS: CloZAPine TAB* 100 MG TAB PO SCH (20:16)
[2019-03-02] MEDS: Gabapentin CAP(*) 300 MG PO SCH (20:16)
[2019-03-02] MEDS: Terazosin CAP* 1 MG PO SCH (20:17)
[2019-03-02] MEDS: traZODone TAB* 100 MG PO SCH (20:17)
[2019-03-02] MEDS: CMC:Desmopressin TAB (NF) 0.1 MG TAB PO SCH (20:18)
[2019-03-03] MEDS: Docusate CAP* 100 MG PO SCH (09:37)
[2019-03-03] MEDS: metFORMIN* 1,000 MG TAB PO SCH (09:37)
[2019-03-03] MEDS: glyBURIDE TAB* 5 MG PO SCH (09:37)
[2019-03-03] MEDS: Vitamin THERAPEUTIC TAB PO SCH (09:37)
[2019-03-03] MEDS: Cholecalciferol TAB* 1000 UNITS PO SCH (09:37)
[2019-03-03] MEDS: Benztropine TAB* 1 MG PO SCH (09:37)
[2019-03-03] MEDS: Atropine 1% (ORAL/SL)* 15 ML BTL SL SCH (09:38)
[2019-03-03] MEDS: prednisoLONE 1% OPHTH.SUSP* 5 ML OPHTH.SUSP BOTH EYES SCH (09:38)
[2019-03-03] MEDS: amLODIPine TAB* 5 MG PO SCH (09:38)
[2019-03-03] MEDS: Levothyroxine TAB* 75 MCG TAB PO SCH (09:38)
[2019-03-03] MEDS: Nicotine* 2MG (FRUIT FLAVOR) GUM PO PRN ×2 (09:41→13:52)
[2019-03-03 10:44] VITALS: BP 143/84
--- NOTE | 2019-03-03 14:00 | PN ---
Subjective - Subjective Service Type: 29649 Hosp care 25 min moderate complexity Subjective: Reports sleeping better one more night. [place] paranoid in group last night but managed to remove himself and not act in a violent way. Tolerating a complicated medication regimen which includes clozapine and Invega sustenna. No EPS, daytime sedation, daytime drooling present. Objective - General Observations Appearance: Unkempt Appears Stated Age: Yes Stature: Overweight Posture: WNL Eye Contact: Average Behavior/Activity: WNL - Interaction Observations Attitude Towards Examiner: Cooperative Stated Mood: Irritable, Anxious Affect: Restricted Speech Pattern/Tone: Clear Thought Process: Coherent Perception: WNL Thought Content: Paranoid Hallucination Type: None Delusion Type: Persecution - Cognitive Function Orientation: A&O x 4 Level of Consciousness: Awake, Alert, Appropriate Cognition: WNL Estimated Intelligence: Normal Insight: WNL Judgment Within Normal Limits: Yes Ability to Make Reasonable Decisions: Mildly Impaired - Medication Compliance Cooperative with Inpatient Medication Regimen: Yes - Group Participation Participates in Group Activities: Partial - has residual but receding paranoia Assessment - Assessment Merits Inpatient Hospitalization: Consolidate Improvements, For Discharge Planning Inpatient DSM-V Dx: F20.0 Clinical Impression: Patient with long history of schizophrenia who is chronically only in partial remission. He is relapsing to some extent now. It is not clear if he stopped night meds. It is true that lack of sleep has been precipitating psychiatric issues. He has a history of violence when decompensating and has requested admission now. He is on an AOT order. A brief admission to stabilize medications and sleep is indicated at this time. BSU: Problem List - Patient Problems (1) Schizophrenia Current Visit: No Status: Acute Priority: High Onset Date: Unknown Code( s): F20.9 - SCHIZOPHRENIA, UNSPECIFIED SNOMED Code(s): 99766373 Comment: controlled, cont clozapine /depakote/cogentin Plan - Plan Treatment Plan: Plan 15 minute checks, medication for insomnia as needed, monitoring of impulsivity, gnosticist of sleep cycle, assessment of acute delusions and hallucinations. Will have individual and group psychotherapy. Need for brief admission due to decompensation even under intensive ACT team care as well as past violent acting out when fully decompensating. Continued Medication Management: Continue Outpt Medication Medications: Current Medications Acetaminophen (Tylenol Tab*) 650 mg PO Q4H PRN PRN Reason: PAIN or TEMP > 101 F Al Hydrox/Mg Hydrox/Simethicone (Maalox Plus*) 30 ml PO Q4H PRN PRN Reason: INDIGESTION Amlodipine Besylate (Norvasc Tab*) 5 mg PO DAILY [facility] Last Admin: 03/03/19 09:38 Dose: 5 mg Atropine Sulfate (Atropine 1% (Oral/Sl)*) 2 drop SL BID DI Last Admin: 03/03/19 09:38 Dose: Not Given Benztropine Mesylate (Cogentin Tab*) 1 mg PO BID DI Last Admin: 03/03/19 09:37 Dose: 1 mg Chlorpromazine HCl (Thorazine Tab*) 100 mg PO Q4HR PRN PRN Reason: AGITATION Cholecalciferol (Vitamin D Tab*) 1,000 units PO DAILY [facility] Last Admin: 03/03/19 09:37 Dose: 1,000 units Clozapine (Clozapine Tab*) 400 mg PO BEDTIME DI Last Admin: 03/02/19 20:16 Dose: 400 mg Desmopressin Acetate (Desmopressin Tab (Nf)) 0.2 mg PO BEDTIME DI Last Admin: 03/02/19 20:18 Dose: 0.2 mg Divalproex Sodium (Depakote Er Tab(*)) 2,000 mg PO BEDTIME DI Last Admin: 03/02/19 20:15 Dose: 2,000 mg Docusate Sodium (Colace Cap*) 100 mg PO BID DI Last Admin: 03/03/19 09:37 Dose: 100 mg Gabapentin (Neurontin Cap(*)) 600 mg PO BEDTIME [facility] Last Admin: 03/02/19 20:16 Dose: 600 mg Glyburide (Diabeta Tab*) 5 mg PO DAILY WITH MEAL DI Last Admin: 03/03/19 09:37 Dose: 5 mg Levothyroxine Sodium (Synthroid Tab*) 75 mcg PO DAILY@0600 DI Last Admin: 03/03/19 09:38 Dose: 75 mcg Metformin HCl (Glucophage*) 1,000 mg PO BID WITH MEALS [facility] Last Admin: 03/03/19 09:37 Dose: 1,000 mg Multivitamins (Theragran Tab*) 1 tab PO DAILY [facility] Last Admin: 03/03/19 09:37 Dose: 1 tab Nicotine Polacrilex (Nicotine Gum*) 2 mg PO Q2H PRN PRN Reason: CRAVINGS Last Admin: 03/03/19 13:52 Dose: 2 mg Non-Formulary Medication *Invega Trinza* 1 dose IM ONCE ONE Stop: 05/04/19 09:01 Prednisolone Acetate (Pred Forte 1%*) 1 drop BOTH EYES DAILY DI Last Admin: 03/03/19 09:38 Dose: 1 drop Terazosin HCl (Hytrin Cap*) 2 mg PO BEDTIME DI Last Admin: 03/02/19 20:17 Dose: 2 mg Trazodone HCl (Desyrel Tab*) 100 mg PO BEDTIME ID Last Admin: 03/02/19 20:17 Dose: 100 mg - Discharge Plan Discharge Plan: Outpatient Follow Up Outpatient Program: [facility] Team
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
--- NOTE | 2019-03-04 12:46 | DS ---
CC: [facility] ACT Team * DISCHARGE SUMMARY: DATE OF ADMISSION: 03/01/19 DATE OF DISCHARGE: 03/03/19 DIAGNOSIS: Schizophrenia, acute exacerbation, undifferentiated type HISTORY OF PRESENT ILLNESS: The patient presented as a 38-year-old single black male who brought himself to the hospital. He was feeling unsafe and said that over the last few days he thought devils were talking about him, that when he went to the market that people at the [employer] would talk about him, and that Orlando Lloyd was somehow talking about him as well. He is followed by [facility] ACT Team closely. Medications included Depakote 2000 mg at night, clozapine 100 in the morning and 300 at night, and Invega Trinza 410 mg every 3 months. His last hospitalization was reportedly in June 2018 and he has had numerous past admissions to the [facility] and [facility]. Recent stressor is that there have been bedbug problems in his apartment building for the last several months. Medical review of systems was nonacute. Laboratory values at admission were in the normal range. He does have diabetes and takes oral medication for that. HOSPITAL COURSE: Initially, the patient had reported that he was not sleeping for several days and was grouchy and became verbally somewhat agitated. He was wanting to sleep when he got here, but it was 2:00 in the afternoon and this would have created problems with restoring his sleep cycle. He was then able to be talked down. He did have supportive psychotherapy and partially attended psychotherapy groups as well as doing a lot of drawing. By the second day, he was no longer agitated and by the third day of his stay, he felt much less paranoid about other people in general. His baseline is of chronic residual schizophrenia symptoms and he is well known to me from 20 years of treatment. He was at his baseline and had to leave the hospital. His housing consists of [facility] in [place] and he is closely followed by [facility], which goes to him to provide treatment. He was notably found to have an elevated hemoglobin A1c, but he is followed by primary care for this. This is an old finding from October of this year. His most recent fasting glucose was 115. His most recent valproic acid level was 74. He stabilized rapidly in the hospital setting, especially with moving his clozapine to be all at night and adding 600 mg of gabapentin and 100 mg of trazodone. He actually slept at night and this contributed to stabilization and he felt able to leave. CONDITION: At the time of discharge, condition was stable. DIET: ADA diet. ACTIVITY: As tolerated. FOLLOWUP: Followup care is with the [facility]. There is no need for substance abuse followup. He is on 2 antipsychotic medications because documentation shows that multiple antipsychotics including clozapine from a large [place] study can decrease the rate of re- hospitalization and because he was placed on this during the hospitalization. MENTAL STATUS AT DISCHARGE: He was alert, oriented x3, and cooperative with exam. Mood was mildly anxious and affect full. Speech was goal directed and coherent with no formal thought disorder. No psychotic symptoms were acutely present. There was no psychomotor agitation or retardation. Concentration was good. The sensorium was clear. He denied suicidal or homicidal or violent ideation. There was no speech or thought disorder. Judgment, insight, and impulse control were fair to good and estimated intelligence is above average. The final impression is that the prognosis is fair. He is on polypharmacy, but has maintained some stability with intensive community supports in the outpatient setting. Hopefully, the changes in his medication will help him sleep better, which is important for him. [id number]/[facility] #: [id number] FLORES
[2019-05-04] MEDS ORDERED: INVEGA TRINZA IM ONE (09:00)
== END 2019-03-03 17:55 | disposition home or self-care (01) | DRG 885 ==
LOC: ED 06:42 → BSU 10:14
PROVIDERS: ADMIT Psychiatry & Neurology Psychiatry; ATTEND Psychiatry & Neurology Psychiatry
DX: F20.0 Paranoid schizophrenia (principal); E11.9 Type 2 diabetes mellitus without complications; F41.9 Anxiety disorder, unspecified; I10 Essential (primary) hypertension; F17.210 Nicotine dependence, cigarettes, uncomplicated; E66.9 Obesity, unspecified; G47.00 Insomnia, unspecified; E07.9 Disorder of thyroid, unspecified; F31.9 Bipolar disorder, unspecified; Z94.7 Corneal transplant status; Z82.49 Family history of ischemic heart disease and other diseases of the circulatory system; Z83.3 Family history of diabetes mellitus; Z81.8 Family history of other mental and behavioral disorders; Z68.38 Body mass index [BMI] 38.0-38.9, adult
CPT/HCPCS: 99222; 99232; 99238; 99284; A9270-GY

== ENCOUNTER 2019-03-06 04:06 | Emergency (ER) | payer MEDICARE ==
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
[2019-03-06 06:16] LABS: Urine Benzodiazepine Screen None Detected (None Detect); Urine Opiates Screen None Detected (None Detect)
[2019-03-06 06:57] VITALS: BP 0/0
== END 2019-03-06 06:52 | disposition home or self-care (01) ==
LOC: ED 04:06
DX: F20.9 Schizophrenia, unspecified (principal); E11.9 Type 2 diabetes mellitus without complications; I10 Essential (primary) hypertension; F17.210 Nicotine dependence, cigarettes, uncomplicated
CPT/HCPCS: 80307; 99282

== ENCOUNTER 2019-03-06 22:11 | Inpatient (IN) | payer MEDICARE ==
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
[2019-03-07] MEDS ORDERED: CloZAPine TAB* 100 MG TAB PO ONE (02:04)
[2019-03-07] MEDS ORDERED: traZODone TAB* 100 MG PO ONE (02:05)
[2019-03-07] MEDS ORDERED: traZODone TAB* 50 MG TAB PO ONE (02:07)
--- NOTE | 2019-03-07 07:13 | ED ---
Progress - Progress Note Progress Note: Pt is a signout from Dr. Saavedra at 0700 on 03/07/19 pending MHE. - Consult/PCP Time Called: 22:55 Course/Dx - Course Course Of Treatment: Pt is a signout from Dr. Saavedra at 0700 on 03/07/19 pending MHE. As 1456, the pt will be admitted to [facility] under Dr. James with dx of psychosis NOS. - Diagnoses Provider Diagnoses: Psychosis Discharge - Sign-Out/Discharge Documenting (check all that apply): Patient Departure, Receiving Sign-Out Receiving patient FROM: Benji Zamora - Discharge Plan Condition: Stable Disposition: PSYCHIATRIC FACILITY[facility] - Billing Disposition and Condition Condition: STABLE Disposition: Psychiatric Facility [facility] - Attestation Statements Document Initiated by Scribe: Yes Documenting Scribe: Alexandria Espinoza Provider For Whom Charlesibe is Documenting (Include Credential): Benji Saavedra MD. Scribe Attestation: Alexandria Garcia scribed for Benji Saavedra MD. on 03/07/19 at 1743. Scribe Documentation Reviewed: Yes Provider Attestation: The documentation as recorded by the charlesibeAlexandria accurately reflects the service I personally performed and the decisions made by Benji kaye MD. Status of Scribe Document: Viewed
[2019-03-07] MEDS ORDERED: Ondansetron ODT TAB* 4 MG PO ONE (08:55)
[2019-03-07] MEDS ORDERED: Al Hydrox/Mg Hydrox/Simet LIQ* 30 ML UDC PO PRN (19:05)
[2019-03-07] MEDS ORDERED: Acetaminophen TAB* 325 MG PO PRN (19:05)
[2019-03-07] MEDS ORDERED: chlorproMAZINE TAB* 100 MG PO PRN (19:06)
[2019-03-07] MEDS: Divalproex ER TAB(*) 500 MG PO SCH ×2 (21:38)
[2019-03-07] MEDS: Docusate CAP* 100 MG PO SCH (21:39)
[2019-03-07] MEDS: Gabapentin CAP(*) 300 MG PO SCH (21:39)
[2019-03-07] MEDS: CloZAPine TAB* 100 MG TAB PO SCH (21:40)
[2019-03-07] MEDS: Benztropine TAB* 1 MG PO SCH (21:40)
[2019-03-07] MEDS: traZODone TAB* 100 MG PO SCH (21:40)
[2019-03-07] MEDS: CMC:Desmopressin TAB (NF) 0.1 MG TAB PO SCH (21:41)
[2019-03-07] MEDS: Terazosin CAP* 1 MG PO SCH (21:42)
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
[2019-03-08] MEDS: Levothyroxine TAB* 75 MCG TAB PO SCH (11:44)
[2019-03-08] MEDS: Cholecalciferol TAB* 1000 UNITS PO SCH (11:45)
[2019-03-08] MEDS: Benztropine TAB* 1 MG PO SCH ×2 (11:45→20:55)
[2019-03-08] MEDS: metFORMIN* 1,000 MG TAB PO SCH ×2 (11:45→17:35)
[2019-03-08] MEDS: Docusate CAP* 100 MG PO SCH ×2 (11:46→20:54)
[2019-03-08] MEDS: amLODIPine TAB* 5 MG PO SCH (11:46)
[2019-03-08] MEDS: Vitamin THERAPEUTIC TAB PO SCH (11:46)
[2019-03-08] MEDS: glyBURIDE TAB* 5 MG PO SCH (11:46)
[2019-03-08] MEDS: Divalproex ER TAB(*) 500 MG PO SCH ×2 (11:47→20:55)
[2019-03-08] MEDS: prednisoLONE 1% OPHTH.SUSP* 5 ML OPHTH.SUSP BOTH EYES SCH (11:47)
[2019-03-08] MEDS: Atropine 1% (ORAL/SL)* 15 ML BTL SL SCH ×3 (11:52→20:56)
[2019-03-08] MEDS: CloZAPine TAB* 100 MG TAB PO SCH (20:52)
[2019-03-08] MEDS: Terazosin CAP* 1 MG PO SCH (20:53)
[2019-03-08] MEDS: Gabapentin CAP(*) 300 MG PO SCH (20:53)
[2019-03-08] MEDS: CMC:Desmopressin TAB (NF) 0.1 MG TAB PO SCH (20:54)
[2019-03-08] MEDS: traZODone TAB* 100 MG PO SCH (20:55)
[2019-03-09 07:11] LABS: ABS Eosinophils 0.3 10^3/ul (0-0.6); ABS Lymphocytes 3.5 10^3/ul (1.0-4.8); ABS Monocytes 0.6 10^3/ul (0-0.8); ABS Neutrophils 3.5 10^3/ul (1.5-7.7); Eosinophil % 3.8 %; Hematocrit 37 % (42-52); Lymphocyte % 44.2 %; Mean Corpuscular HGB Conc 35 g/dL (31-36); Mean Corpuscular Hemoglobin 30 pg (27-31); Mean Corpuscular Volume 85 fL (80-94); Mean Platelet Volume 8.3 fL (7.4-10.4); Nucleated Red Blood Cells % 0.2; Platelet Count 204 10^3/uL (150-450); Red Blood Count 4.38 10^6 /uL (4.18-5.48); Red Cell Distribution Width 13 % (10-15)
[2019-03-09 07:36] LABS: Albumin 4.1 g/dL (3.2-5.2); Albumin/Globulin Ratio 1.6 (1-3); BUN/Creatinine Ratio 17.9 (8-20); Calcium 9.1 mg/dL (8.6-10.3); EGFR African American 195.5 (>60); EGFR Non-African American 161.6 (>60); Globulin 2.5 g/dL (2-4); Potassium 3.9 mmol/L (3.5-5.0); Total Bilirubin 0.2 mg/dL (0.2-1.0); Total Protein 6.6 g/dL (6.4-8.9)
[2019-03-09 08:01] LABS: TSH (Thyroid Stimulating Horm) 2.57 mcIU/mL (0.34-5.60)
[2019-03-09] MEDS: Vitamin THERAPEUTIC TAB PO SCH (08:57)
[2019-03-09] MEDS: metFORMIN* 1,000 MG TAB PO SCH ×2 (08:57→17:13)
[2019-03-09] MEDS: Docusate CAP* 100 MG PO SCH ×2 (08:57→20:29)
[2019-03-09] MEDS: glyBURIDE TAB* 5 MG PO SCH (08:57)
[2019-03-09] MEDS: Divalproex ER TAB(*) 500 MG PO SCH ×2 (08:57→20:23)
[2019-03-09] MEDS: amLODIPine TAB* 5 MG PO SCH (08:57)
[2019-03-09] MEDS: Cholecalciferol TAB* 1000 UNITS PO SCH (08:58)
[2019-03-09] MEDS: Benztropine TAB* 1 MG PO SCH ×2 (08:58→20:29)
[2019-03-09] MEDS: prednisoLONE 1% OPHTH.SUSP* 5 ML OPHTH.SUSP BOTH EYES SCH (08:59)
[2019-03-09] MEDS: Atropine 1% (ORAL/SL)* 15 ML BTL SL SCH ×2 (08:59→20:30)
[2019-03-09] MEDS ORDERED: Magnesium CITRATE* 300 ML BTL PO PRN (09:24)
[2019-03-09] MEDS: Levothyroxine TAB* 75 MCG TAB PO SCH (10:52)
--- NOTE | 2019-03-09 13:34 | PN ---
Subjective - Subjective Date of Service: 03/09/19 Service Type: 18461 Hosp care 35 min high complexity Subjective: Nursing Report: Patient was visible on unit, no overnight incidents. CC: "okay" Patient was seen and evaluated in the common room. The patient reported he enjoys being around people but also the option of being able to go back to his room. He reported having adequate appetite. He ate breakfast this morning. Patient reported that he is tolerating medications without side effects. He reported having difficulty making a bowel movement and was given a laxative. He denied fever and abdominal pain. Objective - General Observations Appearance: Unkempt Appears Stated Age: Yes Stature: Overweight Posture: Slumped Eye Contact: Average Behavior/Activity: WNL - Interaction Observations Attitude Towards Examiner: Cooperative Stated Mood: Dysphoric Affect: Blunted Speech Pattern/Tone: Clear Thought Process: Coherent Perception: WNL Thought Content: Self-Deprecatory Hallucination Type: None Delusion Type: Persecution - Cognitive Function Orientation: A&O x 4 Level of Consciousness: Awake - Medication Compliance Cooperative with Inpatient Medication Regimen: Yes - Group Participation Participates in Group Activities: No Assessment - Assessment Merits Inpatient Hospitalization: For Immediate Safety Clinical Impression: 38 year old male with history of multiple hospitalizations and schizoaffective disorder came to the hospital and was admitted to the BSU at [facility]. Plan - Plan Treatment Plan: Name: RUBENS LUNSFORD Birthdate: 1980 [id number] #Q15 minute observation # The patient requires psychiatric inpatient admission at this time to assure safety, receive treatment and work toward stabilization. # EKG ordered for risk of QT prolongation of antipsychotic medication. # Obtain collateral information once release is signed. # Collaboration with Rn Research Jaci Caballero # Depakote level 121 # Continue Clozapine 400mg qhs. ANC 3.5 Tobacco use disorder: nicotine supplement offered and put in place. # ACT team meeting tomorrow #Goals before discharge include: To reduce/ eliminate psychosis Tentative Discharge: Pending psychiatric stabilization Sodium 142 mmol/L (135-145) 03/09/19 06:52 Potassium 3.9 mmol/L (3.5-5.0) 03/09/19 06:52 BUN 10 mg/dL (6-24) 03/09/19 06:52 Creatinine 0.56 mg/dL (0.67-1.17) L 03/09/19 06:52 Calcium 9.1 mg/dL (8.6-10.3) 03/09/19 06:52 AST 11 U/L (13-39) L 03/09/19 06:52 ALT 13 U/L (7-52) 03/09/19 06:52 Triglycerides 232 mg/dL 03/09/19 06:52 Cholesterol 159 mg/dL 03/09/19 06:52 LDL Cholesterol 84 mg/dL 03/09/19 06:52 Vital Signs Temp Pulse Resp BP Pulse Ox 97.8 F 89 16 123/82 100 03/09/19 10:59 03/09/19 10:59 03/09/19 13:10 03/09/19 10:59 03/09/19 10:59 Continued Medication Management: Continue Outpt Medication Medications: Current Medications Acetaminophen (Tylenol Tab*) 650 mg PO Q4H PRN PRN Reason: PAIN or TEMP > 101 F Al Hydrox/Mg Hydrox/Simethicone (Maalox Plus*) 30 ml PO Q4H PRN PRN Reason: INDIGESTION Amlodipine Besylate (Norvasc Tab*) 5 mg PO DAILY [facility] Last Admin: 03/09/19 08:57 Dose: 5 mg Atropine Sulfate (Atropine 1% (Oral/Sl)*) 2 drop SL BID [facility] Last Admin: 03/09/19 08:59 Dose: Not Given Benztropine Mesylate (Cogentin Tab*) 1 mg PO BID [facility] Last Admin: 03/09/19 08:58 Dose: 1 mg Chlorpromazine HCl (Thorazine Tab*) 100 mg PO Q4H PRN PRN Reason: AGITATION Cholecalciferol (Vitamin D Tab*) 1,000 units PO DAILY [facility] Last Admin: 03/09/19 08:58 Dose: 1,000 units Clozapine (Clozapine Tab*) 400 mg PO BEDTIME [facility] Last Admin: 03/08/19 20:52 Dose: 400 mg Desmopressin Acetate (Desmopressin Tab (Nf)) 0.2 mg PO BEDTIME [facility] Last Admin: 03/08/19 20:54 Dose: 0.2 mg Divalproex Sodium (Depakote Er Tab(*)) 2,000 mg PO DAILY [facility] Last Admin: 03/09/19 08:57 Dose: 2,000 mg Divalproex Sodium (Depakote Er Tab(*)) 2,000 mg PO BEDTIME [facility] Last Admin: 03/08/19 20:55 Dose: 2,000 mg Docusate Sodium (Colace Cap*) 100 mg PO BID DI Last Admin: 03/09/19 08:57 Dose: 100 mg Gabapentin (Neurontin Cap(*)) 600 mg PO BEDTIME DI Last Admin: 03/08/19 20:53 Dose: 600 mg Glyburide (Diabeta Tab*) 5 mg PO DAILY WITH MEAL DI Last Admin: 03/09/19 08:57 Dose: 5 mg Levothyroxine Sodium (Synthroid Tab*) 75 mcg PO DAILY@0600 DI Last Admin: 03/09/19 10:52 Dose: 75 mcg Magnesium Citrate (Citrate Of Magnesia*) 300 ml PO ONCE PRN PRN Reason: CONSTIPATION Metformin HCl (Glucophage*) 1,000 mg PO BID WITH MEALS [facility] Last Admin: 03/09/19 08:57 Dose: 1,000 mg Multivitamins (Theragran Tab*) 1 tab PO DAILY DI Last Admin: 03/09/19 08:57 Dose: 1 tab Nicotine Polacrilex (Nicotine Gum*) 2 mg PO Q2H PRN PRN Reason: CRAVING Prednisolone Acetate (Pred Forte 1%*) 1 drop BOTH EYES DAILY [facility] Last Admin: 03/09/19 08:59 Dose: 1 drop Terazosin HCl (Hytrin Cap*) 2 mg PO BEDTIME [facility] Last Admin: 03/08/19 20:53 Dose: 2 mg Trazodone HCl (Desyrel Tab*) 100 mg PO BEDTIME [facility] Last Admin: 03/08/19 20:55 Dose: 100 mg - Discharge Plan Discharge Plan: Inpatient Hospitalization Outpatient Program: ACT / AOT
[2019-03-09] MEDS: CMC:Desmopressin TAB (NF) 0.1 MG TAB PO SCH (20:25)
[2019-03-09] MEDS: Gabapentin CAP(*) 300 MG PO SCH (20:27)
[2019-03-09] MEDS: Terazosin CAP* 1 MG PO SCH (20:27)
[2019-03-09] MEDS: CloZAPine TAB* 100 MG TAB PO SCH (20:28)
[2019-03-09] MEDS: traZODone TAB* 100 MG PO SCH (20:29)
[2019-03-10] MEDS: metFORMIN* 1,000 MG TAB PO SCH ×2 (09:27→16:57)
[2019-03-10] MEDS: Cholecalciferol TAB* 1000 UNITS PO SCH (09:27)
[2019-03-10] MEDS: Vitamin THERAPEUTIC TAB PO SCH (09:27)
[2019-03-10] MEDS: Benztropine TAB* 1 MG PO SCH ×2 (09:28→20:11)
[2019-03-10] MEDS: Divalproex ER TAB(*) 500 MG PO SCH ×2 (09:28→20:14)
[2019-03-10] MEDS: Docusate CAP* 100 MG PO SCH ×2 (09:28→20:15)
[2019-03-10] MEDS: amLODIPine TAB* 5 MG PO SCH (09:31)
[2019-03-10] MEDS: glyBURIDE TAB* 5 MG PO SCH (09:31)
[2019-03-10] MEDS: Atropine 1% (ORAL/SL)* 15 ML BTL SL SCH ×2 (09:31→20:11)
[2019-03-10] MEDS: prednisoLONE 1% OPHTH.SUSP* 5 ML OPHTH.SUSP BOTH EYES SCH (09:31)
--- NOTE | 2019-03-10 11:01 | PN ---
Subjective - Subjective Date of Service: 03/10/19 Service Type: 94683 Hosp care 35 min high complexity Subjective: CC: "okay" Patient was seen and evaluated in the common room. The patient reported having a really scary nightmare that has been causing him to be stressed out. He denied nausea, abdominal pain, vomiting, fever. He reported having adequate appetite. He ate breakfast this morning. Patient reported that he is tolerating medications without side effects. Patient had a bowel movement yesterday. Objective - General Observations Appearance: Neat Appears Stated Age: Yes Stature: Overweight Posture: Slumped Eye Contact: Average Behavior/Activity: Slowed - Interaction Observations Attitude Towards Examiner: Cooperative Stated Mood: Dysphoric Affect: Blunted Speech Pattern/Tone: Clear Thought Process: Coherent Thought Content: Preoccupation/Ruminations Hallucination Type: Auditory Delusion Type: None, Persecution - Cognitive Function Orientation: A&O x 4 Level of Consciousness: Awake - Medication Compliance Cooperative with Inpatient Medication Regimen: Yes - Group Participation Participates in Group Activities: No Assessment - Assessment Merits Inpatient Hospitalization: For Immediate Safety Clinical Impression: 38 year old male with history of multiple hospitalizations and schizoaffective disorder came to the hospital and was admitted to the BSU at [facility]. Plan - Plan Treatment Plan: Name: RUBENS LUNSFORD Birthdate: 1980 [id number] #Q15 minute observation with keyboard access # The patient requires psychiatric inpatient admission at this time to assure safety, receive treatment and work toward stabilization. # EKG ordered for risk of QT prolongation of antipsychotic medication. # Obtain collateral information once release is signed. # Collaboration with Assistant Professor Of Marine Biology Jaci Caballero # Depakote level 121 # Discontinue depakote 2000mg qam. # Continue Clozapine 400mg qhs. ANC 3.5 # He received Carito Sinha on 02/17/19 # Will be put on waiting list for housing options. # ACT team not concerned about violence to others # Tobacco use disorder: nicotine supplement offered and put in place. # Advised to take medications at 900pm and not 11pm as this can impact sleep schedule. #D/C Terazosin and start prazosin 3mg qhs for nightmares. Advised to stand up slowly. Will monitor for orthostatic hypotension #Goals before discharge include: To reduce/ eliminate psychosis Tentative Discharge: Pending psychiatric stabilization Sodium 142 mmol/L (135-145) 03/09/19 06:52 Potassium 3.9 mmol/L (3.5-5.0) 03/09/19 06:52 BUN 10 mg/dL (6-24) 03/09/19 06:52 Creatinine 0.56 mg/dL (0.67-1.17) L 03/09/19 06:52 Calcium 9.1 mg/dL (8.6-10.3) 03/09/19 06:52 AST 11 U/L (13-39) L 03/09/19 06:52 ALT 13 U/L (7-52) 03/09/19 06:52 Triglycerides 232 mg/dL 03/09/19 06:52 Cholesterol 159 mg/dL 03/09/19 06:52 LDL Cholesterol 84 mg/dL 03/09/19 06:52 Vital Signs Temp Pulse Resp BP Pulse Ox 97.8 F 89 16 123/82 100 03/09/19 10:59 03/09/19 10:59 03/09/19 13:10 03/09/19 10:59 03/09/19 10:59 Continued Medication Management: Continue Outpt Medication Medications: Current Medications Acetaminophen (Tylenol Tab*) 650 mg PO Q4H PRN PRN Reason: PAIN or TEMP > 101 F Al Hydrox/Mg Hydrox/Simethicone (Maalox Plus*) 30 ml PO Q4H PRN PRN Reason: INDIGESTION Amlodipine Besylate (Norvasc Tab*) 5 mg PO DAILY [facility] Last Admin: 03/10/19 09:31 Dose: 5 mg Atropine Sulfate (Atropine 1% (Oral/Sl)*) 2 drop SL BID [facility] Last Admin: 03/10/19 09:31 Dose: Not Given Benztropine Mesylate (Cogentin Tab*) 1 mg PO BID [facility] Last Admin: 03/10/19 09:28 Dose: 1 mg Chlorpromazine HCl (Thorazine Tab*) 100 mg PO Q4H PRN PRN Reason: AGITATION Cholecalciferol (Vitamin D Tab*) 1,000 units PO DAILY [facility] Last Admin: 03/10/19 09:27 Dose: 1,000 units Clozapine (Clozapine Tab*) 400 mg PO BEDTIME [facility] Last Admin: 03/09/19 20:28 Dose: 400 mg Desmopressin Acetate (Desmopressin Tab (Nf)) 0.2 mg PO BEDTIME [facility] Last Admin: 03/09/19 20:25 Dose: 0.2 mg Divalproex Sodium (Depakote Er Tab(*)) 2,000 mg PO BEDTIME DI Last Admin: 03/09/19 20:23 Dose: 2,000 mg Docusate Sodium (Colace Cap*) 100 mg PO BID DI Last Admin: 03/10/19 09:28 Dose: 100 mg Gabapentin (Neurontin Cap(*)) 600 mg PO BEDTIME DI Last Admin: 03/09/19 20:27 Dose: 600 mg Glyburide (Diabeta Tab*) 5 mg PO DAILY WITH MEAL DI Last Admin: 03/10/19 09:31 Dose: 5 mg Levothyroxine Sodium (Synthroid Tab*) 75 mcg PO DAILY@0600 DI Last Admin: 03/09/19 10:52 Dose: 75 mcg Magnesium Citrate (Citrate Of Magnesia*) 300 ml PO ONCE PRN PRN Reason: CONSTIPATION Last Admin: 03/09/19 11:00 Dose: 150 ml Metformin HCl (Glucophage*) 1,000 mg PO BID WITH MEALS DI Last Admin: 03/10/19 09:27 Dose: 1,000 mg Multivitamins (Theragran Tab*) 1 tab PO DAILY DI Last Admin: 03/10/19 09:27 Dose: 1 tab Nicotine Polacrilex (Nicotine Gum*) 2 mg PO Q2H PRN PRN Reason: CRAVING Prazosin HCl (Minipress Cap*) 3 mg PO 2100 [facility] Prednisolone Acetate (Pred Forte 1%*) 1 drop BOTH EYES DAILY [facility] Last Admin: 03/10/19 09:31 Dose: 1 drop Trazodone HCl (Desyrel Tab*) 100 mg PO BEDTIME DI Last Admin: 03/09/19 20:29 Dose: 100 mg - Discharge Plan Discharge Plan: Inpatient Hospitalization Outpatient Program: ACT
[2019-03-10] MEDS: Levothyroxine TAB* 75 MCG TAB PO SCH (11:34)
[2019-03-10] MEDS: Nicotine* 2MG (FRUIT FLAVOR) GUM PO PRN (17:43)
[2019-03-10] MEDS: CloZAPine TAB* 100 MG TAB PO SCH (20:12)
[2019-03-10] MEDS: CMC:Desmopressin TAB (NF) 0.1 MG TAB PO SCH (20:13)
[2019-03-10] MEDS: Gabapentin CAP(*) 300 MG PO SCH (20:17)
[2019-03-10] MEDS: Prazosin CAP* 1 MG PO SCH (20:18)
[2019-03-10] MEDS: traZODone TAB* 100 MG PO SCH (20:19)
[2019-03-11] MEDS: Vitamin THERAPEUTIC TAB PO SCH (09:02)
[2019-03-11] MEDS: Docusate CAP* 100 MG PO SCH ×2 (09:02→20:12)
[2019-03-11] MEDS: Benztropine TAB* 1 MG PO SCH ×2 (09:02→20:09)
[2019-03-11] MEDS: Cholecalciferol TAB* 1000 UNITS PO SCH (09:02)
[2019-03-11] MEDS: amLODIPine TAB* 5 MG PO SCH (09:03)
[2019-03-11] MEDS: Levothyroxine TAB* 75 MCG TAB PO SCH (09:03)
[2019-03-11] MEDS: metFORMIN* 1,000 MG TAB PO SCH ×2 (09:03→17:44)
[2019-03-11] MEDS: glyBURIDE TAB* 5 MG PO SCH (09:03)
[2019-03-11] MEDS: Atropine 1% (ORAL/SL)* 15 ML BTL SL SCH ×2 (09:05→20:09)
[2019-03-11] MEDS: prednisoLONE 1% OPHTH.SUSP* 5 ML OPHTH.SUSP BOTH EYES SCH (09:05)
[2019-03-11] MEDS: Nicotine* 2MG (FRUIT FLAVOR) GUM PO PRN ×2 (11:17→15:09)
--- NOTE | 2019-03-11 11:33 | PN ---
Subjective - Subjective Date of Service: 03/11/19 Service Type: 90700 Hosp care 35 min high complexity Subjective: Nursing Report: Patient was visible on unit, no behavioral incidents. Slept overnight. CC: "Fine Patient was seen and evaluated in the common room. The patient reported he feels restricted being in the hospital and feels that he would be better if he left the hospital. Today he denied thoughts of hopelessness or nightmares of the devil or being afraid someone is going to kill him. He remarked " I just need to get over this anxiety." He reported having adequate appetite and sleep. Per nursing no behavioral issues or overnight events reported. Patient reported that he is tolerating medications without side effects. Objective - General Observations Appearance: Neat Appears Stated Age: Yes Stature: Overweight Posture: Slumped Eye Contact: Average Behavior/Activity: WNL - Interaction Observations Attitude Towards Examiner: Cooperative Stated Mood: Dysphoric Affect: Blunted Speech Pattern/Tone: Clear Thought Process: Coherent Perception: WNL Thought Content: WNL Hallucination Type: None Delusion Type: None - Cognitive Function Orientation: A&O x 4 Level of Consciousness: Awake - Medication Compliance Cooperative with Inpatient Medication Regimen: Yes - Group Participation Participates in Group Activities: Partial Assessment - Assessment Merits Inpatient Hospitalization: For Immediate Safety Clinical Impression: 38 year old male with history of multiple hospitalizations and schizoaffective disorder came to the hospital and was admitted to the BSU at [facility]. Plan - Plan Treatment Plan: Name: RUBENS LUNSFORD Birthdate: 1980 [id number] #Q15 minute observation with keyboard access # The patient requires psychiatric inpatient admission at this time to assure safety, receive treatment and work toward stabilization. # EKG ordered for risk of QT prolongation of antipsychotic medication. # Obtain collateral information once release is signed. # Collaboration with Traffic Inspector Jaci Caballero # Depakote level 117 # Discontinue depakote 2000mg qam. # Continue Clozapine 400mg qhs. ANC 3.5 # He received Carito Sinha on 02/17/19 next due in May # Will be put on waiting list for housing options. # To follow up with ACT team and inform them of discharge # Tobacco use disorder: nicotine supplement offered and put in place. # Advised to take medications at 900pm and not 11pm as this can impact sleep schedule. #Continue prazosin 3mg qhs for nightmares. #Goals before discharge include: To reduce/ eliminate psychosis Tentative Discharge: Tomorrow 03/09/19 03/09/19 03/09/19 06:52 06:52 06:53 WBC 8.0 RBC 4.38 Hgb 13.0 L Hct 37 L MCV 85 MCH 30 MCHC 35 RDW 13 Plt Count 204 MPV 8.3 Neut % (Auto) 44.1 Lymph % (Auto) 44.2 [place] % (Auto) 7.4 Eos % (Auto) 3.8 Baso % (Auto) 0.5 Absolute Neuts (auto) 3.5 Absolute Lymphs (auto) 3.5 Absolute Monos (auto) 0.6 Absolute Eos (auto) 0.3 Absolute Basos (auto) 0.0 Absolute Nucleated RBC 0.0 Nucleated RBC % 0.2 Sodium 142 Potassium 3.9 Chloride 108 Carbon Dioxide 26 Anion Gap 8 BUN 10 Creatinine 0.56 L Est GFR ( Amer) 195.5 Est GFR (Non-Af Amer) 161.6 BUN/Creatinine Ratio 17.9 Glucose 85 Hemoglobin A1c 5.2 Calcium 9.1 Total Bilirubin 0.20 AST 11 L ALT 13 Alkaline Phosphatase 49 Total Protein 6.6 Albumin 4.1 Globulin 2.5 Albumin/Globulin Ratio 1.6 Triglycerides 232 Cholesterol 159 LDL Cholesterol 84 HDL Cholesterol 29.0 TSH 2.57 Valproic Acid 121.0 H 03/11/19 08:14 WBC RBC Hgb Hct MCV MCH MCHC RDW Plt Count MPV Neut % (Auto) Lymph % (Auto) [place] % (Auto) Eos % (Auto) Baso % (Auto) Absolute Neuts (auto) Absolute Lymphs (auto) Absolute Monos (auto) Absolute Eos (auto) Absolute Basos (auto) Absolute Nucleated RBC Nucleated RBC % Sodium Potassium Chloride Carbon Dioxide Anion Gap BUN Creatinine Est GFR ( Amer) Est GFR (Non-Af Amer) BUN/Creatinine Ratio Glucose Hemoglobin A1c Calcium Total Bilirubin AST ALT Alkaline Phosphatase Total Protein Albumin Globulin Albumin/Globulin Ratio Triglycerides Cholesterol LDL Cholesterol HDL Cholesterol TSH Valproic Acid 117.0 H Vital Signs Temp Pulse Resp BP Pulse Ox 98.6 F 85 18 136/71 100 03/11/19 08:00 03/11/19 08:00 03/11/19 08:00 03/11/19 09:10 03/09/19 10:59 Continued Medication Management: Continue Outpt Medication Medications: Current Medications Acetaminophen (Tylenol Tab*) 650 mg PO Q4H PRN PRN Reason: PAIN or TEMP > 101 F Al Hydrox/Mg Hydrox/Simethicone (Maalox Plus*) 30 ml PO Q4H PRN PRN Reason: INDIGESTION Amlodipine Besylate (Norvasc Tab*) 5 mg PO DAILY [facility] Last Admin: 03/11/19 09:03 Dose: 5 mg Atropine Sulfate (Atropine 1% (Oral/Sl)*) 2 drop SL BID DI Last Admin: 03/11/19 09:05 Dose: Not Given Benztropine Mesylate (Cogentin Tab*) 1 mg PO BID [facility] Last Admin: 03/11/19 09:02 Dose: 1 mg Chlorpromazine HCl (Thorazine Tab*) 100 mg PO Q4H PRN PRN Reason: AGITATION Last Admin: 03/10/19 16:14 Dose: 100 mg Cholecalciferol (Vitamin D Tab*) 1,000 units PO DAILY DI Last Admin: 03/11/19 09:02 Dose: 1,000 units Clozapine (Clozapine Tab*) 400 mg PO BEDTIME DI Last Admin: 03/10/19 20:12 Dose: 400 mg Desmopressin Acetate (Desmopressin Tab (Nf)) 0.2 mg PO BEDTIME [facility] Last Admin: 03/10/19 20:13 Dose: 0.2 mg Divalproex Sodium (Depakote Er Tab(*)) 2,000 mg PO BEDTIME DI Last Admin: 03/10/19 20:14 Dose: 2,000 mg Docusate Sodium (Colace Cap*) 100 mg PO BID DI Last Admin: 03/11/19 09:02 Dose: 100 mg Gabapentin (Neurontin Cap(*)) 600 mg PO BEDTIME [facility] Last Admin: 03/10/19 20:17 Dose: 600 mg Glyburide (Diabeta Tab*) 5 mg PO DAILY WITH MEAL [facility] Last Admin: 03/11/19 09:03 Dose: 5 mg Levothyroxine Sodium (Synthroid Tab*) 75 mcg PO DAILY@0600 [facility] Last Admin: 03/11/19 09:03 Dose: 75 mcg Magnesium Citrate (Citrate Of Magnesia*) 300 ml PO ONCE PRN PRN Reason: CONSTIPATION Last Admin: 03/09/19 11:00 Dose: 150 ml Metformin HCl (Glucophage*) 1,000 mg PO BID WITH MEALS [facility] Last Admin: 03/11/19 09:03 Dose: 1,000 mg Multivitamins (Theragran Tab*) 1 tab PO DAILY [facility] Last Admin: 03/11/19 09:02 Dose: 1 tab Nicotine Polacrilex (Nicotine Gum*) 2 mg PO Q2H PRN PRN Reason: CRAVING Last Admin: 03/11/19 11:17 Dose: 2 mg Prazosin HCl (Minipress Cap*) 3 mg PO 2100 [facility] Last Admin: 03/10/19 20:18 Dose: 3 mg Prednisolone Acetate (Pred Forte 1%*) 1 drop BOTH EYES DAILY [facility] Last Admin: 03/11/19 09:05 Dose: 1 drop Trazodone HCl (Desyrel Tab*) 100 mg PO BEDTIME [facility] Last Admin: 03/10/19 20:19 Dose: 100 mg - Discharge Plan Discharge Plan: Inpatient Hospitalization Outpatient Program: ACT
[2019-03-11] MEDS: CloZAPine TAB* 100 MG TAB PO SCH (20:09)
[2019-03-11] MEDS: CMC:Desmopressin TAB (NF) 0.1 MG TAB PO SCH (20:11)
[2019-03-11] MEDS: Divalproex ER TAB(*) 500 MG PO SCH (20:11)
[2019-03-11] MEDS: Gabapentin CAP(*) 300 MG PO SCH (20:13)
[2019-03-11] MEDS: Prazosin CAP* 1 MG PO SCH (20:14)
[2019-03-11] MEDS: traZODone TAB* 100 MG PO SCH (20:14)
[2019-03-12] MEDS: Atropine 1% (ORAL/SL)* 15 ML BTL SL SCH (08:04)
[2019-03-12 08:41] VITALS: BP 114/61
[2019-03-12] MEDS: glyBURIDE TAB* 5 MG PO SCH (08:59)
[2019-03-12] MEDS: metFORMIN* 1,000 MG TAB PO SCH (08:59)
[2019-03-12] MEDS: Cholecalciferol TAB* 1000 UNITS PO SCH (08:59)
[2019-03-12] MEDS: Benztropine TAB* 1 MG PO SCH (08:59)
[2019-03-12] MEDS: Levothyroxine TAB* 75 MCG TAB PO SCH (08:59)
[2019-03-12] MEDS: Vitamin THERAPEUTIC TAB PO SCH (08:59)
[2019-03-12] MEDS: Docusate CAP* 100 MG PO SCH (08:59)
[2019-03-12] MEDS: amLODIPine TAB* 5 MG PO SCH (08:59)
[2019-03-12] MEDS: prednisoLONE 1% OPHTH.SUSP* 5 ML OPHTH.SUSP BOTH EYES SCH (09:01)
[2019-03-12] MEDS: Nicotine* 2MG (FRUIT FLAVOR) GUM PO PRN (10:00)
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
== END 2019-03-12 12:40 | disposition home or self-care (01) | DRG 885 ==
LOC: ED 22:11 → BSU 03-07 14:58
PROVIDERS: ADMIT Psychiatry & Neurology Psychiatry; ATTEND Psychiatry & Neurology Psychiatry
DX: F25.0 Schizoaffective disorder, bipolar type (principal); E11.9 Type 2 diabetes mellitus without complications; E66.3 Overweight; I10 Essential (primary) hypertension; J45.909 Unspecified asthma, uncomplicated; K58.9 Irritable bowel syndrome, unspecified; F41.9 Anxiety disorder, unspecified; F17.210 Nicotine dependence, cigarettes, uncomplicated; E07.9 Disorder of thyroid, unspecified; Z91.5 Personal history of self-harm; Z81.8 Family history of other mental and behavioral disorders; Z91.410 Personal history of adult physical and sexual abuse; Z68.38 Body mass index [BMI] 38.0-38.9, adult; Z79.84 Long term (current) use of oral hypoglycemic drugs; Z94.7 Corneal transplant status; Z82.49 Family history of ischemic heart disease and other diseases of the circulatory system; Z83.3 Family history of diabetes mellitus
CPT/HCPCS: 36415; 80053; 80061; 80164; 80307; 83036; 84443; 85025; 99222; 99233; 99238; 99282; 99285; A9270-GY

== ENCOUNTER 2019-07-13 06:24 | Emergency (ER) | payer MEDICARE, MEDICAID ==
--- NOTE | 2019-07-13 06:46 | ED ---
Psychiatric Complaint - HPI Summary HPI Summary: 38-year-old male with a significant past medical history of non-insulin- dependent type 2 diabetes, anxiety, depression, psychosis presents to the emergency department today complaining of increased depression. He states he has felt depressed for "a very long time" however his depression has increased recently. he states he is tired of explaining himself in regards to the things that he is experiencing are very real but no one is leaving him; such as Orlando Lloyd looking at him on the television and sending a secret message. He denies suicidal or homicidal ideation. He denies difficulty sleeping and does not believe he'll hurt himself while he is here in the emergency department. He would like mental health evaluation. He denies any recent recreational drug use , alcohol use but does endorse smoking. He states he has no other complaints at this time and is not complaining of any physical pain. He denies fever, chest pain, abdominal pain, pain with urination, rash. - History Of Current Complaint Chief Complaint: EDPsychosocial Time Seen by Provider: 07/13/19 06:39 Hx Obtained From: Patient Onset/Duration: Gradual Onset Timing: Constant Severity Initially: Moderate Severity Currently: Moderate Character: Depressed, Anxious Aggravating Factor(s): Recent Stress Alleviating Factor(s): Counseling Associated Signs And Symptoms: Positive: Hallucinating, Sleep Disturbance Related History: Positive For: Prior Psychiatric Issues Has Suicidal: Denies: Thoughts, Demonstrates Gesture Has Homicidal: Denies: Thoughts, Demonstrates Gesture - Allergies/Home Medications Allergies/Adverse Reactions: Allergies Allergy/AdvReac Type Severity Reaction Status Date / Time No Known Allergies Allergy Verified 07/13/19 06:28 PMH/Surg Hx/FS Hx/Imm Hx Endocrine/Hematology History: Reports: Hx Diabetes, Hx Thyroid Disease Cardiovascular History: Reports: Hx Hypertension Respiratory History: Reports: Hx Asthma GI History: Reports: Hx Irritable Bowel - undiagnosed Sensory History: Reports: Hx Contacts or Glasses Denies: Hx Hearing Aid Opthamlomology History: Reports: Hx Contacts or Glasses Psychiatric History: Reports: Hx Anxiety, Hx Depression, Hx Inpatient Treatment , Hx Community Mental Health Tx, Hx Schizophrenia, Hx Bipolar Disorder, Hx of Violent Episodes Against Others Denies: Hx Eating Disorder - Surgical History Surgery Procedure, Year, and Place: patient reports history of gall bladder surgery and a corneal transplant (right eye) - Immunization History Date of Tetanus Vaccine: unknown Date of Influenza Vaccine: unknown Infectious Disease History: No Infectious Disease History: Denies: Traveled Outside the [place] in Last 30 Days - Family History Known Family History: Positive: Hypertension, Diabetes, Other - father-- schizophrenia. Brothers--mood disorder. Mother-- depression - Social History Alcohol Use: None Hx Substance Use: No Substance Use Type: Reports: None Substance Use Comment - Amount & Last Used: unk Hx Tobacco Use: Yes Smoking Status (MU): Current Every Day Smoker Type: Cigarettes Amount Used/How Often: 7-9 cigarettes a day Length of Time of Smoking/Using Tobacco: can't recall Have You Smoked in the Last Year: Yes - Pt states he smoke last yesterday Review of Systems Constitutional: Negative Eyes: Negative ENT: Negative Cardiovascular: Negative Respiratory: Negative Gastrointestinal: Negative Genitourinary: Negative Musculoskeletal: Negative Skin: Negative Neurological: Negative Positive: Anxious, Depressed All Other Systems Reviewed And Are Negative: Yes Physical Exam Triage Information Reviewed: Yes Vital Signs On Initial Exam: Initial Vitals Temp Pulse Resp BP Pulse Ox 98.6 F 127 15 159/100 97 07/13/19 06:25 12 06:25 12 06:25 07/13/19 06:25 07/13/19 06:25 Vital Signs Reviewed: Yes Appearance: Positive: Well-Appearing, No Pain Distress, Well-Nourished, Obese Skin: Positive: Warm, Skin Color Reflects Adequate Perfusion Eyes: Positive: EOMI, ARETHA ENT: Positive: Hearing grossly normal Respiratory/Lung Sounds: Positive: Clear to Auscultation, Breath Sounds Present Cardiovascular: Positive: RRR, S1, S2 Abdomen Description: Positive: Nontender, Soft Bowel Sounds: Positive: Present Neurological: Positive: Sensory/Motor Intact, Alert, Oriented to Person Place, Time, Normal Gait, Speech Normal Psychiatric: Positive: Depressed, Other - Patient makes poor eye contact and conversation with a flat affect. AVPU Assessment: Alert Procedures - Sedation Patient Received Moderate/Deep Sedation with Procedure: No Diagnostics - Vital Signs Vital Signs Temp Pulse Resp BP Pulse Ox 07/13/19 06:25 98.6 F 127 15 159/100 97 - Laboratory Lab Statement: Any lab studies that have been ordered have been reviewed, and results considered in the medical decision making process. Course/Dx - Course Course Of Treatment: Patient was evaluated in the emergency department today for depression. Patient was seen and examined their vital signs are stable and they were afebrile. Patient was cleared for mental health evaluation and disposition by psychiatric services and laboratory studies were deemed unnecessary based on physical exam and history. Dr. Valiente with psychiatry found the patient states for discharge home and further evaluation and management as an outpatient. - Differential Dx/Clinical Impression Differential Diagnosis/HQI/PQRI: Positive: Acute Psychosis, Anxiety, Depression , Homicidal Ideation, Suicidal Ideation Provider Diagnosis: Schizoaffective disorder, bipolar type - Physician Notifications Discussed Care Of Patient With: Bubba Valiente - discharge home for further evaluation and management as an outpatient Time Discussed With Above Provider: 12:00 Discharge ED - Sign-Out/Discharge Documenting (check all that apply): Patient Departure - Discharge Plan Condition: Stable Disposition: HOME Referrals: Redd Schuster MD [Primary Care Provider] - - Billing Disposition and Condition Condition: STABLE Disposition: Home - Attestation Statements Provider Attestation: I was available for consult. This patient was seen by the [facility]. The patient was not presented to, seen by, or examined by me. Anselmo Riley MD
[2019-07-13 12:38] VITALS: BP 122/93
== END 2019-07-13 12:37 | disposition home or self-care (01) ==
LOC: ED 06:24
DX: F25.9 Schizoaffective disorder, unspecified (principal); F31.9 Bipolar disorder, unspecified; F41.9 Anxiety disorder, unspecified; G47.9 Sleep disorder, unspecified; E03.9 Hypothyroidism, unspecified; I10 Essential (primary) hypertension; F17.210 Nicotine dependence, cigarettes, uncomplicated
CPT/HCPCS: 36415; 80159; 80164; 85025; 99283

== ENCOUNTER 2020-04-07 22:39 | Inpatient (IN) ==
[2020-04-07 23:58] LABS: ALT 15 U/L (7-52); AST 14 U/L (13-39); Albumin 4.2 g/dL (3.2-5.2); Albumin/Globulin Ratio 1.6 (1-3); Alkaline Phosphatase 57 U/L (34-104); Anion Gap 9 mmol/L (2-11); BUN/Creatinine Ratio 15.4 (8-20); Blood Urea Nitrogen 10 mg/dL (6-24); CO2 Carbon Dioxide 23 mmol/L (22-32); Calcium 9.8 mg/dL (8.6-10.3); Chloride 108 mmol/L (101-111); EGFR African American 163.8 (>60); EGFR Non-African American 135.4 (>60); Globulin 2.6 g/dL (2-4); Glucose 169 mg/dL (70-100); Potassium 3.8 mmol/L (3.5-5.0); Sodium 140 mmol/L (135-145); Total Protein 6.8 g/dL (6.4-8.9)
[2020-04-07 23:59] LABS: Acetaminophen < 15 mcg/mL; Alcohol, S < 10 mg/dL (<10); Salicylate < 2.50 mg/dL (<30)
[2020-04-08 00:14] LABS: TSH Ultra Thyroid Stim Horm 5.69 mcIU/mL (0.34-5.60)
[2020-04-08 00:37] LABS: ABS Eosinophils 0.2 10^3/ul (0-0.6); ABS Lymphocytes 1.6 10^3/ul (1.0-4.8); ABS Monocytes 0.7 10^3/ul (0-0.8); ABS Neutrophils 4.1 10^3/ul (1.5-7.7); Eosinophil % 2.4 %; Hematocrit 38 % (42-52); Hemoglobin 12.5 g/dL (14.0-18.0); Lymphocyte % 24.9 %; Mean Corpuscular HGB Conc 33 g/dL (31-36); Mean Corpuscular Hemoglobin 26 pg (27-31); Mean Corpuscular Volume 80 fL (80-94); Mean Platelet Volume 8.5 fL (7.4-10.4); Nucleated Red Blood Cells % 0.1; Platelet Count 240 10^3/uL (150-450); Red Blood Count 4.74 10^6 /uL (4.18-5.48); Red Cell Distribution Width 18 % (10-15); White Blood Count 6.6 10^3/uL (3.5-10.8)
[2020-04-08] MEDS ORDERED: Al Hydrox/Mg Hydrox/Simet LIQ 30 ML UDC PO PRN (01:35)
[2020-04-08] MEDS ORDERED: DIPHENHYDRAMINE 50 MG PO PRN (01:36)
[2020-04-08 03:06] LABS: Urine Appearance Cloudy; Urine Bacteria Absent (Absent); Urine Bilirubin Negative (Negative); Urine Blood Negative (Negative); Urine Color Yellow; Urine Glucose Negative (Negative); Urine Ketones Negative (Negative); Urine Nitrite Negative (Negative); Urine Protein Negative (Negative); Urine Red Blood Cell 2+(6-10/hpf) (Absent); Urine Specific Gravity 1.025 (1.010-1.030); Urine Squamous Epithelial Cell Present (Absent); Urine Urobilinogen Negative (Negative); Urine White Blood Cell 2+(11-20/hpf) (Absent)
[2020-04-08 05:49] LABS: Urine Opiates Screen None Detected (None Detect)
[2020-04-08 05:53] LABS: Urine Benzodiazepine Screen None Detected (None Detect); Urine Cannabinoids Screen None Detected (None Detect)
[2020-04-08] MEDS: Nicotine PATCH 14 MG/24 HR PATCH TRANSDERM SCH (11:32)
[2020-04-08] MEDS: Vitamin THERAPEUTIC TAB PO SCH (11:33)
[2020-04-09] MEDS: Nicotine PATCH 14 MG/24 HR PATCH TRANSDERM SCH (08:32)
[2020-04-09] MEDS: Vitamin THERAPEUTIC TAB PO SCH (08:32)
[2020-04-10] MEDS: Nicotine PATCH 14 MG/24 HR PATCH TRANSDERM SCH (08:20)
[2020-04-10] MEDS: Vitamin THERAPEUTIC TAB PO SCH (08:21)
[2020-04-10 11:31] VITALS: BP 123/82
[2020-04-10 13:30] LABS: Free T4 1.07 ng/dL (0.61-1.12)
== END 2020-04-10 14:00 | disposition home or self-care (01) | DRG 885 ==
LOC: ED 22:39 → BSU 04-08 02:44
PROVIDERS: ADMIT Psychiatry & Neurology Addiction Psychiatry; ATTEND Psychiatry & Neurology Psychiatry

== ENCOUNTER 2022-05-03 16:45 | Inpatient (IN) ==
[2022-05-03] MEDS ORDERED: Buffered Lidocaine 1% SYRIN 1 ml INTRADERM ONE (19:52)
[2022-05-03] MEDS ORDERED: Lactated Ringers 1000 ml BAG 1,000 ML IV SCH ×2 (20:00)
[2022-05-03] MEDS ORDERED: Lidocaine 1% w EPI 1:100,000 MDV 20 ML VIAL ONE (20:06)
[2022-05-03] MEDS ORDERED: Propofol 10 MG/ML 20 ML BTL ONE (20:16)
[2022-05-03] MEDS ORDERED: Lidocaine 2% PF 5 ML VIAL ONE (20:16)
[2022-05-03] MEDS ORDERED: Ondansetron 4 mg VIAL 2 MG/ML 2 ml VIAL ONE (20:16)
[2022-05-03] MEDS ORDERED: fentaNYL 100 mcg/2 ml 50 MCG/ML VIAL ONE (20:17)
[2022-05-03] MEDS ORDERED: Midazolam 5 mg/5 ml VIAL 1 mg/ml 5 ml VIAL (5 mg) ONE (20:17)
[2022-05-03] MEDS ORDERED: Acetaminophen IV 1 GM/100ML 1,000 MG/100 ML BAG IV ONE (20:19)
[2022-05-03] MEDS ORDERED: ceFAZolin 1 GM in Dextrose 1 GM/50 ML BAG ONE (20:25)
[2022-05-03] MEDS ORDERED: ceFAZolin 2 GM PREMIX 2 GM/50 ML BAG ONE (20:25)
[2022-05-03] MEDS ORDERED: Dextrose 50% Syringe 50 ml 25 GM/50 ML SYRINGE IV PUSH PRN (20:47)
[2022-05-03] MEDS ORDERED: Albuterol HFA INHALER 8 gm MDI INH PRN (20:56)
[2022-05-03] MEDS ORDERED: Labetalol IV 5 MG/ML 20 ml VIAL ONE (21:10)
[2022-05-03] MEDS ORDERED: Naloxone 0.4 mg VIAL 0.4 mg/ml 1 ml VIAL IV PRN (22:44)
[2022-05-03 23:25] LABS: Body Fluid Appearance Bloody; Body Fluid Color Red; Body Fluid Source Synovial Fluid
[2022-05-03 23:34] LABS: Body Fluid WBC 7234 /mcL
[2022-05-04 02:59] LABS: Body Fluid Mono 1 %; Body Fluid Total Cells Counted 200
[2022-05-04 06:20] LABS: C Reactive Protein 114.06 mg/L (<8.01); Magnesium 1.9 mg/dL (1.9-2.7)
[2022-05-04] MEDS: Mometasone/Formoter 200/5 MDI INH SCH ×2 (07:07→19:50)
[2022-05-04 09:10] LABS: ABS Eosinophils 0.1 10^3/ul (0-0.6); ABS Lymphocytes 1.4 10^3/ul (1.0-4.8); ABS Monocytes 0.9 10^3/ul (0-0.8); ABS Neutrophils 2.8 10^3/ul (1.5-7.7); Eosinophil % 2.3 %; Hematocrit 33 % (42-52); Hemoglobin 11.2 g/dL (14.0-18.0); Lymphocyte % 27.2 %; Mean Corpuscular HGB Conc 34 g/dL (31-36); Mean Corpuscular Hemoglobin 29 pg (27-31); Mean Corpuscular Volume 86 fL (80-94); Nucleated Red Blood Cells % 0.3; Platelet Count 196 10^3/uL (150-450); Red Blood Count 3.83 10^6 /uL (4.18-5.48); Red Cell Distribution Width 13 % (10-15); White Blood Count 5.3 10^3/uL (3.5-10.8)
[2022-05-04] MEDS: prednisoLONE 1% OPHTH.SUSP 5 ML OPHTH.SUSP RIGHT EYE SCH (09:13)
[2022-05-04] MEDS: oxyCODONE/Acetamin 5/325 mg TAB PO PRN ×3 (09:14→21:40)
[2022-05-04 09:24] LABS: Potassium 3.4 mmol/L (3.5-5.0); eGFR CKD-EPI 126.1 (>60)
[2022-05-04] MEDS ORDERED: Potassium Chlor 20 meq TAB.ER PO ONE (10:04)
[2022-05-04] MEDS: ceFAZolin 2 GM in NS PREMIX 2 GM/100 ML BAG IVPB SCH ×2 (11:04→17:23)
[2022-05-05] MEDS: ceFAZolin 2 GM in NS PREMIX 2 GM/100 ML BAG IVPB SCH (02:22)
[2022-05-05 05:37] LABS: ABS Eosinophils 0.2 10^3/ul (0-0.6); ABS Lymphocytes 2.1 10^3/ul (1.0-4.8); ABS Monocytes 0.8 10^3/ul (0-0.8); ABS Neutrophils 3.3 10^3/ul (1.5-7.7); Eosinophil % 2.5 %; Hematocrit 34 % (42-52); Hemoglobin 11.1 g/dL (14.0-18.0); Mean Corpuscular HGB Conc 33 g/dL (31-36); Mean Corpuscular Hemoglobin 29 pg (27-31); Mean Corpuscular Volume 88 fL (80-94); Mean Platelet Volume 8.2 fL (7.4-10.4); Nucleated Red Blood Cells % 0.1; Platelet Count 200 10^3/uL (150-450); Red Blood Count 3.84 10^6 /uL (4.18-5.48); Red Cell Distribution Width 13 % (10-15); White Blood Count 6.4 10^3/uL (3.5-10.8)
[2022-05-05 06:13] LABS: CO2 Carbon Dioxide 25 mmol/L (22-32); Calcium 8.7 mg/dL (8.6-10.3); Chloride 107 mmol/L (101-111); Sodium 140 mmol/L (135-145)
[2022-05-05 06:15] LABS: Anion Gap 8 mmol/L (2-11)
[2022-05-05 06:18] LABS: Blood Urea Nitrogen 9 mg/dL (6-24); Glucose 86 mg/dL (70-100); eGFR CKD-EPI 126.8 (>60)
[2022-05-05] MEDS: Mometasone/Formoter 200/5 MDI INH SCH ×2 (06:54→19:53)
[2022-05-05] MEDS: oxyCODONE/Acetamin 5/325 mg TAB PO PRN (08:54)
[2022-05-05] MEDS: cefTRIAXone 2 gm/50 mL D5W 2 GM/50 ML BAG IV SCH (08:54)
[2022-05-05] MEDS: prednisoLONE 1% OPHTH.SUSP 5 ML OPHTH.SUSP RIGHT EYE SCH (08:55)
[2022-05-06] MEDS ORDERED: Lactated Ringers 1000 ml BAG 1,000 ML IV ONE (00:17)
[2022-05-06 04:06] LABS: Urine Appearance Clear; Urine Bilirubin Negative (Negative); Urine Blood 1+ (Negative); Urine Color Yellow; Urine Glucose Negative (Negative); Urine Ketones 1+ (Negative); Urine Nitrite Negative (Negative); Urine Protein Negative (Negative); Urine Specific Gravity 1.019 (1.002-1.030); Urine Urobilinogen Negative (Negative)
[2022-05-06 04:30] LABS: Urine Bacteria Absent (Absent); Urine Red Blood Cell 2+(6-10/hpf) (Absent); Urine White Blood Cell Trace(0-5/hpf) (Absent)
[2022-05-06] MEDS ORDERED: Azithromycin 500 mg/250 ml NS 500 MG/250 ML BAG IVPB ONE (06:30)
[2022-05-06] MEDS: Mometasone/Formoter 200/5 MDI INH SCH ×2 (07:37→19:58)
[2022-05-06] MEDS: oxyCODONE/Acetamin 5/325 mg TAB PO PRN (08:37)
[2022-05-06] MEDS: cefTRIAXone 2 gm/50 mL D5W 2 GM/50 ML BAG IV SCH (09:50)
[2022-05-06] MEDS: prednisoLONE 1% OPHTH.SUSP 5 ML OPHTH.SUSP RIGHT EYE SCH (09:55)
[2022-05-06] MEDS: Morphine 10 MG/ML VIAL (1 ml) IV PRN (13:18)
[2022-05-06] MEDS ORDERED: Iodixanol (CONTRAST) 320 MG/ML 100 ML SDV IV ONE (13:19)
[2022-05-06 13:43] LABS: ABS Basophils 0.1 10^3/ul (0-0.2); ABS Eosinophils 0.1 10^3/ul (0-0.6); ABS Lymphocytes 1.5 10^3/ul (1.0-4.8); ABS Monocytes 1.1 10^3/ul (0-0.8); ABS Neutrophils 4.2 10^3/ul (1.5-7.7); Eosinophil % 1.4 %; Hematocrit 33 % (42-52); Hemoglobin 11.2 g/dL (14.0-18.0); Lymphocyte % 21.7 %; Mean Corpuscular HGB Conc 34 g/dL (31-36); Mean Corpuscular Hemoglobin 29 pg (27-31); Mean Corpuscular Volume 87 fL (80-94); Mean Platelet Volume 7.6 fL (7.4-10.4); Platelet Count 224 10^3/uL (150-450); Red Blood Count 3.85 10^6 /uL (4.18-5.48); Red Cell Distribution Width 13 % (10-15); White Blood Count 6.9 10^3/uL (3.5-10.8)
[2022-05-06 14:03] LABS: Calcium 9.1 mg/dL (8.6-10.3); Magnesium 1.9 mg/dL (1.9-2.7); Potassium 3.9 mmol/L (3.5-5.0)
[2022-05-06 14:09] LABS: C Reactive Protein 177.42 mg/L (<8.01)
[2022-05-07] MEDS: Morphine 10 MG/ML VIAL (1 ml) IV PRN (05:51)
[2022-05-07] MEDS: prednisoLONE 1% OPHTH.SUSP 5 ML OPHTH.SUSP RIGHT EYE SCH (09:15)
[2022-05-07] MEDS: Mometasone/Formoter 200/5 MDI INH SCH ×2 (09:47→19:44)
[2022-05-07] MEDS: cefTRIAXone 2 gm/50 mL D5W 2 GM/50 ML BAG IV SCH (09:48)
[2022-05-07] MEDS: Magnesium Hydroxide LIQ 30 ML UDC PO PRN (09:48)
[2022-05-07] MEDS ORDERED: Vancomycin per Pharmacy 1 EA NOTE FOLLOW UP SCH (11:00)
[2022-05-07] MEDS ORDERED: Vancomycin 2,000 MG in NS 0.9% 500 ml BAG 500 ML IVPB ONE (11:30)
[2022-05-07] MEDS: Azithromycin 500 mg/250 ml NS 500 MG/250 ML BAG IVPB SCH (12:45)
[2022-05-07 18:30] LABS: IgG Immunoblot Negative (Negative); IgM Immunoblot Negative (Negative)
[2022-05-07] MEDS: Polyethylene Glycol 3350 17 GM PACKET PO PRN (22:37)
[2022-05-07] MEDS: Senna TAB 8.6 mg TAB PO PRN (22:38)
[2022-05-08] MEDS ORDERED: Haloperidol 5 mg/ml SDV IV/IM 5 MG/ML AMP IV SLOW PU ONE (04:58)
[2022-05-08 06:51] LABS: ABS Eosinophils 0.1 10^3/ul (0-0.6); ABS Lymphocytes 0.9 10^3/ul (1.0-4.8); ABS Monocytes 1.4 10^3/ul (0-0.8); ABS Neutrophils 5.2 10^3/ul (1.5-7.7); Eosinophil % 1.5 %; Hematocrit 31 % (42-52); Hemoglobin 10.3 g/dL (14.0-18.0); Lymphocyte % 11.7 %; Mean Corpuscular HGB Conc 33 g/dL (31-36); Mean Corpuscular Hemoglobin 29 pg (27-31); Mean Corpuscular Volume 88 fL (80-94); Mean Platelet Volume 7.1 fL (7.4-10.4); Platelet Count 223 10^3/uL (150-450); Red Blood Count 3.54 10^6 /uL (4.18-5.48); Red Cell Distribution Width 13 % (10-15); White Blood Count 7.6 10^3/uL (3.5-10.8)
[2022-05-08 07:07] LABS: Calcium 8.8 mg/dL (8.6-10.3); Magnesium 1.9 mg/dL (1.9-2.7); Potassium 3.6 mmol/L (3.5-5.0)
[2022-05-08 07:13] LABS: C Reactive Protein 241.18 mg/L (<8.01)
[2022-05-08] MEDS: Mometasone/Formoter 200/5 MDI INH SCH ×2 (08:09→19:14)
[2022-05-08] MEDS: Polyethylene Glycol 3350 17 GM PACKET PO PRN (08:56)
[2022-05-08] MEDS: prednisoLONE 1% OPHTH.SUSP 5 ML OPHTH.SUSP RIGHT EYE SCH (09:00)
[2022-05-08] MEDS: cefTRIAXone 2 gm/50 mL D5W 2 GM/50 ML BAG IV SCH (10:53)
[2022-05-08] MEDS: Azithromycin 500 mg/250 ml NS 500 MG/250 ML BAG IVPB SCH (11:32)
[2022-05-08] MEDS ORDERED: Zosyn per Pharmacy NOTE FOLLOW UP SCH (13:00)
[2022-05-08] MEDS ORDERED: Piperacillin/Tazobac ADVAN 3.375 GM in NS 0.9% 100 ml BAG 100 ML IV ONE (13:30)
[2022-05-08] MEDS: oxyCODONE/Acetamin 5/325 mg TAB PO PRN (13:50)
[2022-05-08 15:00] LABS: HIV 4th Generation Nonreactive (Nonreactive)
[2022-05-08] MEDS ORDERED: Vancomycin per Pharmacy 1 EA NOTE FOLLOW UP PRN (15:00)
[2022-05-08] MEDS: DOXYcycline 100 MG in NS 0.9% 250 ml 250 ML IVPB SCH (15:18)
[2022-05-08] MEDS ORDERED: Vancomycin 2,000 MG in NS 0.9% 500 ml BAG 500 ML IVPB ONE (15:30)
[2022-05-08 16:17] LABS: Hepatitis B Surface Antigen Nonreactive (Nonreactive)
[2022-05-08 16:23] LABS: Hepatitis A Ab IgM Negative (Negative); Hepatitis B Core IgM Nonreactive (Nonreactive)
[2022-05-08 16:33] LABS: Hepatitis C Antibody Negative (Negative)
[2022-05-08] MEDS ORDERED: ZOSYN 3.375 GM Q8H per EXTENDED INFUSION IV SCH (18:00)
[2022-05-08] MEDS: Senna TAB 8.6 mg TAB PO PRN (20:55)
[2022-05-08] MEDS: Magnesium Hydroxide LIQ 30 ML UDC PO PRN (20:58)
[2022-05-08] MEDS: ZOSYN 3.375 GM Q6H IV SCH (22:24)
[2022-05-09] MEDS: ZOSYN 3.375 GM Q6H IV SCH ×4 (02:04→22:35)
[2022-05-09] MEDS: DOXYcycline 100 MG in NS 0.9% 250 ml 250 ML IVPB SCH ×3 (02:55→16:48)
[2022-05-09 06:34] LABS: ABS Eosinophils 0.1 10^3/ul (0-0.6); ABS Lymphocytes 0.7 10^3/ul (1.0-4.8); ABS Monocytes 1.4 10^3/ul (0-0.8); ABS Neutrophils 5.7 10^3/ul (1.5-7.7); Eosinophil % 1.8 %; Hematocrit 31 % (42-52); Hemoglobin 10.2 g/dL (14.0-18.0); Mean Corpuscular HGB Conc 33 g/dL (31-36); Mean Corpuscular Hemoglobin 29 pg (27-31); Mean Corpuscular Volume 88 fL (80-94); Nucleated Red Blood Cells % 0.1; Platelet Count 250 10^3/uL (150-450); Red Blood Count 3.51 10^6 /uL (4.18-5.48); Red Cell Distribution Width 14 % (10-15); White Blood Count 8.1 10^3/uL (3.5-10.8)
[2022-05-09] MEDS: Vancomycin 2,000 MG in NS 0.9% 500 ml BAG 500 ML IVPB SCH ×2 (06:40→18:35)
[2022-05-09 06:56] LABS: Calcium 8.9 mg/dL (8.6-10.3); Potassium 3.7 mmol/L (3.5-5.0); eGFR CKD-EPI 122.2 (>60)
[2022-05-09] MEDS: Mometasone/Formoter 200/5 MDI INH SCH ×2 (08:23→20:09)
[2022-05-09] MEDS: oxyCODONE/Acetamin 5/325 mg TAB PO PRN (08:51)
[2022-05-09] MEDS: Magnesium Hydroxide LIQ 30 ML UDC PO PRN (08:51)
[2022-05-09] MEDS: prednisoLONE 1% OPHTH.SUSP 5 ML OPHTH.SUSP RIGHT EYE SCH (09:50)
[2022-05-09] MEDS ORDERED: Naloxone 0.4 mg VIAL 0.4 mg/ml 1 ml VIAL IV PUSH PRN (11:26)
[2022-05-09] MEDS ORDERED: Naloxone 0.4 mg VIAL 0.4 mg/ml 1 ml VIAL ONE (11:30)
[2022-05-10] MEDS: ZOSYN 3.375 GM Q6H IV SCH ×3 (01:55→13:25)
[2022-05-10] MEDS: DOXYcycline 100 MG in NS 0.9% 250 ml 250 ML IVPB SCH ×2 (02:47→15:11)
[2022-05-10] MEDS ORDERED: Vancomycin Trough Check NOTE FOLLOW UP ONE (06:00)
[2022-05-10] MEDS: Mometasone/Formoter 200/5 MDI INH SCH ×2 (06:51→19:45)
[2022-05-10 08:42] LABS: ABS Eosinophils 0.2 10^3/ul (0-0.6); ABS Lymphocytes 1.1 10^3/ul (1.0-4.8); ABS Monocytes 1.3 10^3/ul (0-0.8); ABS Neutrophils 4.6 10^3/ul (1.5-7.7); Eosinophil % 3.3 %; Hematocrit 30 % (42-52); Hemoglobin 9.5 g/dL (14.0-18.0); Lymphocyte % 15.4 %; Mean Corpuscular HGB Conc 32 g/dL (31-36); Mean Corpuscular Hemoglobin 28 pg (27-31); Mean Corpuscular Volume 87 fL (80-94); Mean Platelet Volume 6.9 fL (7.4-10.4); Nucleated Red Blood Cells % 0.1; Platelet Count 269 10^3/uL (150-450); Red Blood Count 3.39 10^6 /uL (4.18-5.48); Red Cell Distribution Width 14 % (10-15); White Blood Count 7.3 10^3/uL (3.5-10.8)
[2022-05-10 09:24] LABS: Anion Gap 10 mmol/L (2-11); Blood Urea Nitrogen 7 mg/dL (6-24); CO2 Carbon Dioxide 29 mmol/L (22-32); Calcium 8.6 mg/dL (8.6-10.3); Chloride 105 mmol/L (101-111); Glucose 87 mg/dL (70-100); Magnesium 1.9 mg/dL (1.9-2.7); Potassium 3.6 mmol/L (3.5-5.0); Sodium 144 mmol/L (135-145); Vancomycin Trough 5.6 mcg/mL
[2022-05-10] MEDS: Vancomycin 2,000 MG in NS 0.9% 500 ml BAG 500 ML IVPB SCH (09:44)
[2022-05-10] MEDS: prednisoLONE 1% OPHTH.SUSP 5 ML OPHTH.SUSP RIGHT EYE SCH (10:21)
[2022-05-10 17:18] LABS: Corrected Retic Count 1.6 % (0.5-1.5); Hematocrit for Retic CNT 29 % (42-52); Immature Retic Fraction 0.42; RBC Retic Count 3.25 10^6/uL (4.18-5.48)
[2022-05-10 17:43] LABS: % Iron Saturation 10 % (15-55); Iron < 20 ug/dL (50-212); Total Iron Binding Capacity 200 mcg/dL (250-450); Transferrin 143 mg/dL (203-362); Unsaturated Iron Binding 180 ug/dL
[2022-05-10 17:50] LABS: JO-1 Antibody <0.2 U; SS-A/Ro Antibody <0.2 U; SS-B/La Antibody <0.2 U
[2022-05-10] MEDS ORDERED: Vancomycin 1,500 MG in NS 0.9% 250 ml 250 ML IVPB SCH (18:00)
[2022-05-11] MEDS: DOXYcycline 100 MG in NS 0.9% 250 ml 250 ML IVPB SCH ×2 (03:30→15:55)
[2022-05-11 06:10] LABS: Corrected Retic Count 1.4 % (0.5-1.5); Hematocrit 30 % (42-52); Hematocrit for Retic CNT 30 % (42-52); Hemoglobin 9.5 g/dL (14.0-18.0); Immature Retic Fraction 0.56; Mean Corpuscular HGB Conc 32 g/dL (31-36); Mean Corpuscular Hemoglobin 28 pg (27-31); Mean Corpuscular Volume 88 fL (80-94); Mean Platelet Volume 6.8 fL (7.4-10.4); Platelet Count 267 10^3/uL (150-450); RBC Retic Count 3.36 10^6/uL (4.18-5.48); Red Blood Count 3.36 10^6 /uL (4.18-5.48); Red Cell Distribution Width 14 % (10-15); White Blood Count 10.4 10^3/uL (3.5-10.8)
[2022-05-11 06:54] LABS: C Reactive Protein 222.51 mg/L (<8.01); Calcium 8.5 mg/dL (8.6-10.3); Magnesium 1.9 mg/dL (1.9-2.7); Potassium 3.4 mmol/L (3.5-5.0); eGFR CKD-EPI 44.3 (>60)
[2022-05-11 08:32] LABS: ABS Basophils 0.1 10^3/ul (0-0.2); ABS Eosinophils 0.2 10^3/ul (0-0.6); ABS Lymphocytes 0.9 10^3/ul (1.0-4.8); ABS Monocytes 1.7 10^3/ul (0-0.8); ABS Neutrophils 7.6 10^3/ul (1.5-7.7); Eosinophil % 2.1 %; Lymphocyte % 8.4 %; Nucleated Red Blood Cells % 0.1
[2022-05-11] MEDS: Mometasone/Formoter 200/5 MDI INH SCH ×2 (08:50→19:58)
[2022-05-11 12:09] LABS: Cyclic Citrullinated Pept IgG <15.6 U
[2022-05-11] MEDS: prednisoLONE 1% OPHTH.SUSP 5 ML OPHTH.SUSP RIGHT EYE SCH (12:48)
[2022-05-12] MEDS: DOXYcycline 100 MG in NS 0.9% 250 ml 250 ML IVPB SCH ×2 (01:40→13:58)
[2022-05-12 04:58] LABS: Hematocrit 29 % (42-52); Hemoglobin 9.8 g/dL (14.0-18.0); Mean Corpuscular HGB Conc 33 g/dL (31-36); Mean Corpuscular Hemoglobin 29 pg (27-31); Mean Corpuscular Volume 88 fL (80-94); Mean Platelet Volume 6.5 fL (7.4-10.4); Platelet Count 318 10^3/uL (150-450); Red Blood Count 3.35 10^6 /uL (4.18-5.48); Red Cell Distribution Width 14 % (10-15); White Blood Count 11.7 10^3/uL (3.5-10.8)
[2022-05-12 05:00] LABS: ABS Eosinophils 0.3 10^3/ul (0-0.6); ABS Lymphocytes 1.3 10^3/ul (1.0-4.8); ABS Neutrophils 8.1 10^3/ul (1.5-7.7); Eosinophil % 2.3 %; Lymphocyte % 10.8 %
[2022-05-12 05:43] LABS: Calcium 8.6 mg/dL (8.6-10.3); Potassium 3.7 mmol/L (3.5-5.0); eGFR CKD-EPI 30.6 (>60)
[2022-05-12] MEDS ORDERED: Lactated Ringers 1000 ml BAG 1,000 ML IV ONE ×2 (07:03→14:59)
[2022-05-12] MEDS: Mometasone/Formoter 200/5 MDI INH SCH ×3 (07:19→19:34)
[2022-05-12] MEDS ORDERED: Vancomycin Trough Check NOTE FOLLOW UP ONE (09:30)
[2022-05-12] MEDS: prednisoLONE 1% OPHTH.SUSP 5 ML OPHTH.SUSP RIGHT EYE SCH (10:52)
[2022-05-12] MEDS ORDERED: Lactated Ringers 1000 ml BAG 1,000 ML IV SCH (16:00)
[2022-05-12 16:36] LABS: Urine Appearance Clear; Urine Bilirubin Negative (Negative); Urine Blood 1+ (Negative); Urine Color Yellow; Urine Glucose Negative (Negative); Urine Ketones Negative (Negative); Urine Nitrite Negative (Negative); Urine Protein Negative (Negative); Urine Specific Gravity 1.006 (1.002-1.030); Urine Urobilinogen Negative (Negative)
[2022-05-12 16:44] LABS: Urine Bacteria 1+ (Absent); Urine Creatinine Concentration 91.61 mg/dL; Urine Red Blood Cell 3+(>10/hpf) (Absent); Urine Sodium Concentration < 18 mmol/L; Urine Squamous Epithelial Cell Present (Absent); Urine White Blood Cell Trace(0-5/hpf) (Absent)
[2022-05-12 19:56] LABS: Urine Osmo 186 mOsm/kg (150-1150)
[2022-05-12] MEDS: Senna TAB 8.6 mg TAB PO PRN (21:28)
[2022-05-13] MEDS: DOXYcycline 100 MG in NS 0.9% 250 ml 250 ML IVPB SCH ×2 (02:03→14:30)
[2022-05-13 06:29] LABS: Hematocrit 27 % (42-52); Mean Corpuscular HGB Conc 33 g/dL (31-36); Mean Corpuscular Hemoglobin 29 pg (27-31); Mean Corpuscular Volume 88 fL (80-94); Mean Platelet Volume 6.8 fL (7.4-10.4); Platelet Count 331 10^3/uL (150-450); Red Blood Count 3.11 10^6 /uL (4.18-5.48); Red Cell Distribution Width 14 % (10-15); White Blood Count 10.6 10^3/uL (3.5-10.8)
[2022-05-13 06:51] LABS: CO2 Carbon Dioxide 20 mmol/L (22-32); Calcium 8.6 mg/dL (8.6-10.3); Chloride 109 mmol/L (101-111); Sodium 144 mmol/L (135-145)
[2022-05-13 06:54] LABS: Anion Gap 15 mmol/L (2-11)
[2022-05-13 06:57] LABS: Blood Urea Nitrogen 16 mg/dL (6-24); Glucose 124 mg/dL (70-100); eGFR CKD-EPI 31.7 (>60)
[2022-05-13 08:35] LABS: RBC Morphology Normal (Normal)
[2022-05-13 08:36] LABS: ABS Basophils 0.1 10^3/ul (0-0.2); ABS Eosinophils 0.2 10^3/ul (0-0.6); ABS Lymphocytes 0.6 10^3/ul (1.0-4.8); ABS Monocytes 2.1 10^3/ul (0-0.8); ABS Neutrophils 7.7 10^3/ul (1.5-7.7); Eosinophil % 1.5 %; Lymphocyte % 6.1 %
[2022-05-13] MEDS: Mometasone/Formoter 200/5 MDI INH SCH ×2 (09:05→18:59)
[2022-05-13] MEDS: prednisoLONE 1% OPHTH.SUSP 5 ML OPHTH.SUSP RIGHT EYE SCH (09:15)
[2022-05-13] MEDS ORDERED: Lactated Ringers 1000 ml BAG 1,000 ML IV SCH (22:00)
[2022-05-14] MEDS: DOXYcycline 100 MG in NS 0.9% 250 ml 250 ML IVPB SCH ×2 (02:23→14:48)
[2022-05-14 06:12] LABS: Hematocrit 27 % (42-52); Hemoglobin 8.6 g/dL (14.0-18.0); Mean Corpuscular HGB Conc 32 g/dL (31-36); Mean Corpuscular Hemoglobin 28 pg (27-31); Mean Corpuscular Volume 88 fL (80-94); Mean Platelet Volume 6.7 fL (7.4-10.4); Platelet Count 342 10^3/uL (150-450); Red Blood Count 3.04 10^6 /uL (4.18-5.48); Red Cell Distribution Width 14 % (10-15); White Blood Count 13.3 10^3/uL (3.5-10.8)
[2022-05-14 06:22] LABS: Calcium 8.2 mg/dL (8.6-10.3); Magnesium 1.8 mg/dL (1.9-2.7); Potassium 3.3 mmol/L (3.5-5.0)
[2022-05-14 06:27] LABS: eGFR CKD-EPI 36.8 (>60)
[2022-05-14 06:36] LABS: ABS Eosinophils 0.3 10^3/ul (0-0.6); ABS Lymphocytes 1.2 10^3/ul (1.0-4.8); ABS Monocytes 2.4 10^3/ul (0-0.8); ABS Neutrophils 9.4 10^3/ul (1.5-7.7); Eosinophil % 2.1 %; Lymphocyte % 9.1 %
[2022-05-14] MEDS: Mometasone/Formoter 200/5 MDI INH SCH ×2 (08:00→19:58)
[2022-05-14] MEDS: prednisoLONE 1% OPHTH.SUSP 5 ML OPHTH.SUSP RIGHT EYE SCH (09:44)
[2022-05-14] MEDS ORDERED: Magnesium Sulfate IV 1GM/100ML 1 GM/100 ML BAG IV ONE (13:30)
[2022-05-14] MEDS ORDERED: Potassium Chlor 20 meq TAB.ER PO ONE (14:30)
[2022-05-14 15:02] LABS: C Reactive Protein 200.73 mg/L (<8.01)
[2022-05-14 15:10] LABS: TSH Ultra Thyroid Stim Horm 1.91 mcIU/mL (0.34-5.60)
[2022-05-14 19:20] LABS: Uric Acid 9.4 mg/dL (4.4-7.6)
[2022-05-14] MEDS ORDERED: cefTRIAXone 2 gm/50 mL D5W 2 GM/50 ML BAG IV ONE (19:22)
[2022-05-15 06:36] LABS: Hematocrit 30 % (42-52); Hemoglobin 9.5 g/dL (14.0-18.0); Mean Corpuscular HGB Conc 31 g/dL (31-36); Mean Corpuscular Hemoglobin 28 pg (27-31); Mean Corpuscular Volume 89 fL (80-94); Mean Platelet Volume 6.7 fL (7.4-10.4); Platelet Count 339 10^3/uL (150-450); Red Blood Count 3.42 10^6 /uL (4.18-5.48); Red Cell Distribution Width 14 % (10-15); White Blood Count 13.4 10^3/uL (3.5-10.8)
[2022-05-15 06:51] LABS: Albumin 2.7 g/dL (3.2-5.2); Calcium 8.4 mg/dL (8.6-10.3); Magnesium 2.2 mg/dL (1.9-2.7); Potassium 3.9 mmol/L (3.5-5.0); Total Bilirubin 0.3 mg/dL (0.2-1.0)
[2022-05-15 06:57] LABS: Globulin 2.6 g/dL (2-4); Total Protein 5.3 g/dL (6.4-8.9); eGFR CKD-EPI 39.5 (>60)
[2022-05-15 07:00] LABS: ABS Basophils 0.1 10^3/ul (0-0.2); ABS Eosinophils 0.3 10^3/ul (0-0.6); ABS Lymphocytes 1.1 10^3/ul (1.0-4.8); ABS Monocytes 2.5 10^3/ul (0-0.8); ABS Neutrophils 9.5 10^3/ul (1.5-7.7); Eosinophil % 2.1 %; Lymphocyte % 8.2 %
[2022-05-15] MEDS: Mometasone/Formoter 200/5 MDI INH SCH ×2 (07:26→19:55)
[2022-05-15] MEDS: Lactated Ringers 1000 ml BAG 1,000 ML IV SCH ×2 (09:17→21:57)
[2022-05-15] MEDS: prednisoLONE 1% OPHTH.SUSP 5 ML OPHTH.SUSP RIGHT EYE SCH (09:38)
[2022-05-15] MEDS ORDERED: Nystatin SUSPENSION 100,000 UNITS/ML UDC PO SCH (13:00)
[2022-05-15] MEDS: Nystatin SUSPENSION 100,000 UNITS/ML UDC PO SCH ×4 (13:32→22:21)
[2022-05-15] MEDS ORDERED: Enoxaparin 40 MG/0.4 ML SYR SUBCUT SCH (14:00)
[2022-05-15] MEDS ORDERED: Gadoteridol (CONTRAST) 279.3 MG/ML 10 ML IV ONE (16:38)
[2022-05-15] MEDS: cefTRIAXone 2 gm/50 mL D5W 2 GM/50 ML BAG IV SCH (21:54)
[2022-05-16] MEDS: Lactated Ringers 1000 ml BAG 1,000 ML IV SCH ×2 (01:04→13:34)
[2022-05-16 07:36] LABS: Hematocrit 27 % (42-52); Hemoglobin 8.5 g/dL (14.0-18.0); Mean Corpuscular HGB Conc 32 g/dL (31-36); Mean Corpuscular Hemoglobin 28 pg (27-31); Mean Corpuscular Volume 88 fL (80-94); Mean Platelet Volume 6.5 fL (7.4-10.4); Platelet Count 394 10^3/uL (150-450); Red Blood Count 3.04 10^6 /uL (4.18-5.48); Red Cell Distribution Width 14 % (10-15); White Blood Count 12.9 10^3/uL (3.5-10.8)
[2022-05-16] MEDS: Mometasone/Formoter 200/5 MDI INH SCH ×2 (07:44→19:05)
[2022-05-16 08:18] LABS: Albumin 2.7 g/dL (3.2-5.2); Albumin/Globulin Ratio 1.1 (1-3); Calcium 8.6 mg/dL (8.6-10.3); Globulin 2.5 g/dL (2-4); Potassium 3.5 mmol/L (3.5-5.0); Total Bilirubin 0.3 mg/dL (0.2-1.0); Total Protein 5.2 g/dL (6.4-8.9); eGFR CKD-EPI 44.9 (>60)
[2022-05-16] MEDS: Nystatin SUSPENSION 100,000 UNITS/ML UDC PO SCH ×4 (09:13→21:47)
[2022-05-16] MEDS: prednisoLONE 1% OPHTH.SUSP 5 ML OPHTH.SUSP RIGHT EYE SCH (09:14)
[2022-05-16 12:08] LABS: RBC Morphology Normal (Normal)
[2022-05-16 12:09] LABS: ABS Basophils 0.1 10^3/ul (0-0.2); ABS Eosinophils 0.2 10^3/ul (0-0.6); ABS Lymphocytes 1.2 10^3/ul (1.0-4.8); ABS Monocytes 2.4 10^3/ul (0-0.8); Eosinophil % 1.9 %; Lymphocyte % 9.1 %
[2022-05-16 17:55] LABS: C Reactive Protein 148.27 mg/L (<8.01)
[2022-05-16] MEDS: cefTRIAXone 2 gm/50 mL D5W 2 GM/50 ML BAG IV SCH (20:49)
[2022-05-16] MEDS ORDERED: Enoxaparin 40 MG/0.4 ML SYR SUBCUT ONE (21:33)
[2022-05-17] MEDS: Mometasone/Formoter 200/5 MDI INH SCH ×2 (07:45→19:06)
[2022-05-17] MEDS: Nystatin SUSPENSION 100,000 UNITS/ML UDC PO SCH ×4 (08:28→21:02)
[2022-05-17] MEDS ORDERED: Enoxaparin 40 MG/0.4 ML SYR SUBCUT SCH (21:00)
[2022-05-18] MEDS: Mometasone/Formoter 200/5 MDI INH SCH ×2 (07:05→19:07)
[2022-05-18] MEDS: Nystatin SUSPENSION 100,000 UNITS/ML UDC PO SCH ×5 (08:41→20:37)
[2022-05-18 09:36] LABS: Hematocrit 25 % (42-52); Hemoglobin 8.3 g/dL (14.0-18.0); Mean Corpuscular HGB Conc 33 g/dL (31-36); Mean Corpuscular Hemoglobin 29 pg (27-31); Mean Corpuscular Volume 88 fL (80-94); Mean Platelet Volume 7.2 fL (7.4-10.4); Platelet Count 382 10^3/uL (150-450); Red Blood Count 2.88 10^6 /uL (4.18-5.48); Red Cell Distribution Width 14 % (10-15); White Blood Count 13.2 10^3/uL (3.5-10.8)
[2022-05-18 09:37] LABS: Albumin 2.7 g/dL (3.2-5.2); Albumin/Globulin Ratio 1.1 (1-3); C Reactive Protein 114.55 mg/L (<8.01); Calcium 8.4 mg/dL (8.6-10.3); Globulin 2.5 g/dL (2-4); Magnesium 1.8 mg/dL (1.9-2.7); Potassium 3.7 mmol/L (3.5-5.0); Total Bilirubin 0.3 mg/dL (0.2-1.0); Total Protein 5.2 g/dL (6.4-8.9); eGFR CKD-EPI 52.1 (>60)
[2022-05-18] MEDS: NS 0.45% 1000 ml BAG 1,000 ML IV SCH ×2 (10:52→14:17)
[2022-05-18] MEDS: cefTRIAXone 2 gm/50 mL D5W 2 GM/50 ML BAG IV SCH (11:22)
[2022-05-18] MEDS ORDERED: Enoxaparin 80 MG/0.8 ML SYR SUBCUT ONE (11:36)
[2022-05-18] MEDS: Iron Sucrose 200 MG in NS 0.9% 100 ml BAG 100 ML IVPB SCH (12:46)
[2022-05-18 14:02] LABS: ABS Basophils 0.1 10^3/ul (0-0.2); ABS Eosinophils 0.3 10^3/ul (0-0.6); ABS Lymphocytes 1.6 10^3/ul (1.0-4.8); ABS Monocytes 2.6 10^3/ul (0-0.8); ABS Neutrophils 8.6 10^3/ul (1.5-7.7); Eosinophil % 2.1 %; Lymphocyte % 12.1 %; RBC Morphology Normal (Normal)
[2022-05-18 21:55] LABS: Anaplasma phagocytophilum Negative (Negative); B. miyamotoi PCR, B Negative (Negative); Babesia divergens/MO-1 Negative (Negative); Babesia ducani Negative (Negative); Ehrlichia chaffeensis Negative (Negative); Ehrlichia ewingii/canis Negative (Negative); Ehrlichia muris eauclairensis Negative (Negative)
[2022-05-19] MEDS: Mometasone/Formoter 200/5 MDI INH SCH ×2 (07:02→19:02)
[2022-05-19 08:36] LABS: Hematocrit 27 % (42-52); Hemoglobin 8.6 g/dL (14.0-18.0); Mean Corpuscular HGB Conc 32 g/dL (31-36); Mean Corpuscular Hemoglobin 28 pg (27-31); Mean Corpuscular Volume 88 fL (80-94); Mean Platelet Volume 6.3 fL (7.4-10.4); Platelet Count 422 10^3/uL (150-450); Red Blood Count 3.12 10^6 /uL (4.18-5.48); Red Cell Distribution Width 14 % (10-15); White Blood Count 13.6 10^3/uL (3.5-10.8)
[2022-05-19 09:14] LABS: Calcium 8.5 mg/dL (8.6-10.3); Potassium 3.9 mmol/L (3.5-5.0); eGFR CKD-EPI 53.7 (>60)
[2022-05-19] MEDS: Nystatin SUSPENSION 100,000 UNITS/ML UDC PO SCH ×4 (09:16→21:04)
[2022-05-19 10:46] LABS: ABS Basophils 0.1 10^3/ul (0-0.2); ABS Eosinophils 0.3 10^3/ul (0-0.6); ABS Lymphocytes 1.8 10^3/ul (1.0-4.8); ABS Monocytes 2.6 10^3/ul (0-0.8); ABS Neutrophils 8.8 10^3/ul (1.5-7.7); Eosinophil % 2.5 %
[2022-05-19] MEDS: D5W 1000 ml BAG 1,000 ML IV SCH ×2 (11:06→21:50)
[2022-05-19] MEDS: cefTRIAXone 2 gm/50 mL D5W 2 GM/50 ML BAG IV SCH (11:40)
[2022-05-19 16:39] LABS: Calcium 8.7 mg/dL (8.6-10.3); Potassium 4.2 mmol/L (3.5-5.0); eGFR CKD-EPI 54.5 (>60)
[2022-05-19] MEDS ORDERED: Furosemide 20 mg/2 ml IV VIAL IV ONE (16:53)
[2022-05-19] MEDS ORDERED: Furosemide 20 mg/2 ml IV VIAL ONE (16:56)
[2022-05-19 22:17] LABS: Calcium 8.6 mg/dL (8.6-10.3); Potassium 4.2 mmol/L (3.5-5.0); eGFR CKD-EPI 56.6 (>60)
[2022-05-20] MEDS ORDERED: D5W 1000 ml BAG 1,000 ML IV SCH (01:40)
[2022-05-20 08:29] LABS: C Reactive Protein 128.74 mg/L (<8.01)
[2022-05-20 08:51] LABS: Hematocrit 29 % (42-52); Hemoglobin 9.2 g/dL (14.0-18.0); Mean Corpuscular HGB Conc 32 g/dL (31-36); Mean Corpuscular Hemoglobin 28 pg (27-31); Mean Corpuscular Volume 86 fL (80-94); Mean Platelet Volume 6.3 fL (7.4-10.4); Platelet Count 440 10^3/uL (150-450); Red Blood Count 3.32 10^6 /uL (4.18-5.48); Red Cell Distribution Width 14 % (10-15)
[2022-05-20] MEDS: Mometasone/Formoter 200/5 MDI INH SCH ×2 (08:55→21:45)
[2022-05-20] MEDS: Nystatin SUSPENSION 100,000 UNITS/ML UDC PO SCH ×4 (08:57→23:08)
[2022-05-20 09:23] LABS: ABS Basophils 0.1 10^3/ul (0-0.2); ABS Eosinophils 0.4 10^3/ul (0-0.6); ABS Lymphocytes 1.8 10^3/ul (1.0-4.8); ABS Monocytes 2.3 10^3/ul (0-0.8); ABS Neutrophils 8.4 10^3/ul (1.5-7.7); Eosinophil % 2.8 %; Lymphocyte % 13.9 %; Nucleated Red Blood Cells % 0.1; RBC Morphology Normal (Normal)
[2022-05-20 09:28] LABS: Calcium 8.6 mg/dL (8.6-10.3); Potassium 3.8 mmol/L (3.5-5.0); eGFR CKD-EPI 54.9 (>60)
[2022-05-20] MEDS: Iron Sucrose 200 MG in NS 0.9% 100 ml BAG 100 ML IVPB SCH (10:27)
[2022-05-20] MEDS: cefTRIAXone 2 gm/50 mL D5W 2 GM/50 ML BAG IV SCH (11:03)
[2022-05-20 16:12] LABS: Calcium 8.4 mg/dL (8.6-10.3); eGFR CKD-EPI 58.4 (>60)
[2022-05-20 20:05] LABS: Urine Appearance Clear; Urine Bilirubin Negative (Negative); Urine Blood Negative (Negative); Urine Color Straw; Urine Glucose Negative (Negative); Urine Ketones Negative (Negative); Urine Nitrite Negative (Negative); Urine Protein Negative (Negative); Urine Specific Gravity 1.004 (1.002-1.030); Urine Urobilinogen Negative (Negative)
[2022-05-20 20:42] LABS: Urine Osmo 211 mOsm/kg (150-1150)
[2022-05-20 23:55] LABS: Clozapine 1470 ng/mL (350-600); Clozapine & Norclozapine Level 1891 ng/mL; Norclozapine 421 ng/mL
[2022-05-21 08:16] VITALS: BP 145/84
[2022-05-21] MEDS: Mometasone/Formoter 200/5 MDI INH SCH (09:01)
[2022-05-21] MEDS: Nystatin SUSPENSION 100,000 UNITS/ML UDC PO SCH ×3 (09:10→17:12)
[2022-05-21 12:00] LABS: Hematocrit 29 % (42-52); Hemoglobin 9.2 g/dL (14.0-18.0); Mean Corpuscular HGB Conc 32 g/dL (31-36); Mean Corpuscular Hemoglobin 27 pg (27-31); Mean Corpuscular Volume 86 fL (80-94); Mean Platelet Volume 6.6 fL (7.4-10.4); Platelet Count 369 10^3/uL (150-450); Red Blood Count 3.39 10^6 /uL (4.18-5.48); Red Cell Distribution Width 14 % (10-15); White Blood Count 12.2 10^3/uL (3.5-10.8)
[2022-05-21 12:04] LABS: ABS Basophils 0.1 10^3/ul (0-0.2); ABS Eosinophils 0.4 10^3/ul (0-0.6); ABS Lymphocytes 1.6 10^3/ul (1.0-4.8); ABS Monocytes 1.9 10^3/ul (0-0.8); ABS Neutrophils 8.1 10^3/ul (1.5-7.7); Eosinophil % 2.9 %; Lymphocyte % 13.3 %
[2022-05-21 12:34] LABS: Calcium 8.8 mg/dL (8.6-10.3); Potassium 4.3 mmol/L (3.5-5.0); eGFR CKD-EPI 59.8 (>60)
[2022-05-21] MEDS ORDERED: INVEGA TRINZA IM ONE (17:00)
[2022-05-22 15:19] LABS: Specimen Type Peripheral blood
[2022-05-23 18:11] LABS: Anti-Glial/Neuronal Nuc Ab-1 A Negative titer (<1:240); Anti-Neuronal Nuclear Ab Type1 Negative titer (<1:240); Anti-Neuronal Nuclear Ab Type2 Negative titer (<1:240); Anti-Neuronal Nuclear Ab Type3 Negative titer (<1:240); CRMP-5 IgG Antibody Negative titer (<1:240); Purkinje Cell Cytoplasm Typ Tr Negative titer (<1:240); Purkinje Cell Cytoplasm Type 1 Negative titer (<1:240); Purkinje Cell Cytoplasm Type 2 Negative titer (<1:240)
[2022-05-29 14:43] LABS: ANNA-1, S Negative titer (<1:240); ANNA-2, S Negative titer (<1:240); DPPX Ab IFA, S Negative (Negative); GFAP IFA, S Negative (Negative); NIF IFA, S Negative (Negative); mGluR1 Ab IFA, S Negative (Negative)
== END 2022-05-21 18:45 | disposition home or self-care (01) | DRG 853 ==
LOC: OR 16:45 → SSU 05-04 00:48 → SUATTDRO 05-04 00:48
PROVIDERS: ADMIT Orthopaedic Surgery Sports Medicine; ATTEND Internal Medicine

== ENCOUNTER 2022-08-18 03:27 | Inpatient (IN) ==
[2022-08-18 04:33] LABS: ABS Lymphocytes 1.5 10^3/ul (1.0-4.8); ABS Monocytes 1.1 10^3/ul (0-0.8); ABS Neutrophils 8.5 10^3/ul (1.5-7.7); Eosinophil % 0.4 %; Hematocrit 40 % (42-52); Hemoglobin 13.8 g/dL (14.0-18.0); Lymphocyte % 13.3 %; Mean Corpuscular HGB Conc 34 g/dL (31-36); Mean Corpuscular Hemoglobin 29 pg (27-31); Mean Corpuscular Volume 84 fL (80-94); Nucleated Red Blood Cells % 0.1; Platelet Count 193 10^3/uL (150-450); Red Cell Distribution Width 13 % (10-15); White Blood Count 11.1 10^3/uL (3.5-10.8)
[2022-08-18 04:48] LABS: Urine Benzodiazepine Screen None Detected (None Detect); Urine Cannabinoids Screen None Detected (None Detect); Urine Opiates Screen None Detected (None Detect)
[2022-08-18 05:11] LABS: Albumin 4.9 g/dL (3.2-5.2); C Reactive Protein 5.26 mg/L (<8.01); Calcium 10.4 mg/dL (8.6-10.3); Creatinine, Serum 1.03 mg/dL (0.67-1.17); Globulin 2.5 g/dL (2-4); Potassium 3.4 mmol/L (3.5-5.0); Total Bilirubin 0.6 mg/dL (0.2-1.0); Total Protein 7.4 g/dL (6.4-8.9); eGFR CKD-EPI 92.4 (>60)
[2022-08-18] MEDS ORDERED: Al Hydrox/Mg Hydrox/Simet LIQ 30 ML UDC PO PRN (07:59)
[2022-08-18 08:11] LABS: TSH Ultra Thyroid Stim Horm 1.23 mcIU/mL (0.34-5.60)
[2022-08-18] MEDS: Vitamin THERAPEUTIC TAB PO SCH (10:52)
[2022-08-18] MEDS ORDERED: Nicotine GUM 4MG FRUIT FLAVOR PO PRN (10:55)
[2022-08-18] MEDS ORDERED: Albuterol HFA INHALER 8 gm MDI INH PRN (11:36)
[2022-08-18] MEDS: Nicotine PATCH 21 MG/24 HR PATCH TRANSDERM SCH (16:21)
[2022-08-19 08:04] LABS: HDL Cholesterol 32.8 mg/dL
[2022-08-19] MEDS: Vitamin THERAPEUTIC TAB PO SCH (09:54)
[2022-08-19] MEDS: Nicotine PATCH 21 MG/24 HR PATCH TRANSDERM SCH (09:54)
[2022-08-20] MEDS: Nicotine PATCH 21 MG/24 HR PATCH TRANSDERM SCH (09:04)
[2022-08-20] MEDS: Vitamin THERAPEUTIC TAB PO SCH (09:05)
[2022-08-21 00:24] LABS: Clozapine 444 ng/mL (350-600); Clozapine & Norclozapine Level 560 ng/mL; Norclozapine 116 ng/mL
[2022-08-21] MEDS: Vitamin THERAPEUTIC TAB PO SCH (09:14)
[2022-08-21] MEDS: Nicotine PATCH 21 MG/24 HR PATCH TRANSDERM SCH (09:17)
[2022-08-22] MEDS: Nicotine PATCH 21 MG/24 HR PATCH TRANSDERM SCH (08:51)
[2022-08-22] MEDS: Vitamin THERAPEUTIC TAB PO SCH (08:52)
[2022-08-22 13:32] VITALS: BP 133/88
== END 2022-08-22 14:50 | disposition home or self-care (01) | DRG 885 ==
LOC: ED 03:27 → EDHOLD 07:25 → BSU 10:06
PROVIDERS: ADMIT Student in an Organized Health Care Education/Training Program; ATTEND Student in an Organized Health Care Education/Training Program